=== PATIENT | female | born 1935 | race Caucasian/White ===

== ENCOUNTER 2021-03-27 12:09 | Inpatient (IN) | payer MEDICARE, SELFPAY ==
[2021-03-27] VITALS (58 sets, daily range): BP systolic 83–150; BP diastolic 50–87; PULSE 76–168; RESP 13–28; TEMP 36.6; O2SAT 91–100; BMI 16.1
--- NOTE | ~2021-03-27 | XR_ITS ---
EXAMINATION: XR chest 2V DATE: 03/27/2021 12:51 INDICATION: Cough and weakness TECHNIQUE: AP and lateral views of the chest are obtained. COMPARISON: 10/28/2016 FINDINGS: There are airspace opacities of the lung bases and left midlung zone. Small pleural effusio ns are present. There is no pneumothorax. The cardiomediastinal silhouette is normal. There is modera te thoracic spondylosis. There is a chronic L1 compression fracture with worsened loss of vertebral b cleo height. Surgical clips in the right upper quadrant are likely from prior cholecystectomy. There i s moderate osteoarthritis of the shoulders. IMPRESSION: 1. Airspace opacities of the lung bases and left midlung zone, consistent with atelectasis versus pne umonia. Reviewed, dictated and finalized at location B. IMPRESSION: 1. Airspace opacities of the lung bases and left midlung zone, consistent with atelectasis versus pneumonia.
--- NOTE | ~2021-03-27 | XR_ITS ---
EXAMINATION: XR chest 1V portable EXAM DATE: 04/03/2021 08:57 INDICATION: COVID. Pneumonia follow-up. TECHNIQUE: Portable AP frontal chest x-ray was obtained. Comparison is made to prior examination from 03/27/2020. FINDINGS: There is been progression in the right basilar pneumonia involving multiple segments. The l eft basilar multi segmental pneumonia appears not significantly changed. There are small pleural effu sions. Cardiomediastinal silhouette is normal. There is no pneumothorax suspected. There is no acute hemorrhage. There are cholecystectomy clips. IMPRESSION: 1. Bilateral lower lobe pneumonia, mild progression on the right. 2. Small pleural effusions. Reviewed, dictated and finalized at location B.
--- NOTE | 2021-03-27 12:21 | ECG_ITS ---
Measurements Intervals [place] Rate: 94 P: 72 DE: 131 QRS: -43 QRSD: 92 T: 89 QT: 320 QTc: 400 Interpretive Statements SINUS RHYTHM LEFT AXIS DEVIATION ANTEROSEPTAL INFARCT, AGE INDETERMINATE BORDERLINE ST-T WAVE ABNORMALITY- HIGH LATERAL LEADS BASELINE ARTIFACT- I, II, III, AVR, AVL, AVF, V3-V6 ABNORMAL ECG Electronically Signed On 03-27-2021 13:55:52 CDT by Issa Winkler D.O.
--- NOTE | 2021-03-27 12:42 | ED.WEAKNESS ---
HPI - Weakness General Chief complaint: Weakness Stated complaint: Sent By her PMD Time Seen by Provider: 03/27/21 12:18 History of Present Illness HPI Narrative: Patient is an 85-year-old who presents ER with weakness. Per family patient has been weak for the last week and has not been eating and drinking. She is not getting out of bed and they think she is developing a bedsore. Patient is alert and oriented x3. She denies any chest pain or chest pressure. She does report chronic cough. No fevers or chills or sweats. Was referred here by PCP. Related Data Home Medications Medication Instructions Recorded Confirmed aspirin 81 mg PO DAILY 03/27/21 atorvastatin 03/27/21 donepezil mg 03/27/21 ferrous sulfate [iron] 325 mg PO DAILY 03/27/21 losartan 03/27/21 potassium chloride meq PO 03/27/21 vitamins A,C,X-mzbf-[id number] 1 cap PO BID 03/27/21 [PreserVision AREDS] Allergies Allergy/AdvReac Type Severity Reaction Status Date / Time Sulfa (Sulfonamide Allergy Mild ITCHING Verified 07/26/17 10:23 Antibiotics) NKFA Allergy Unknown Uncoded 01/10/03 14:35 Review of Systems Review of Systems: All systems reviewed & are unremarkable except as noted in HPI and below Constitutional: Constitutional: Denies chills, Reports fatigue, Denies fever(s) and Reports weakness ENT: Denies nasal congestion and Denies sore throat Cardiovascular: Cardiovascular: Denies chest pain and Denies radiating jaw, neck or arm pain Respiratory: Respiratory: Reports cough, Denies dyspnea and Denies wheezing Gastrointestinal: Gastrointestinal: Denies abdominal pain, Denies nausea and Denies vomiting PMFSH Past Medical History Medical History (Updated 03/27/21 @ 16:59 by Henrique Watkins MD) Alzheimer's dementia Diverticulosis Hypertension Surgical History Surgical History (Updated 03/27/21 @ 16:59 by Henrique Watkins MD) History of appendectomy History of cholecystectomy Social History Social History (Updated 03/27/21 @ 16:59 by Henrique Watkins MD) Social History: Lives at home with her son. Exam Narrative: GENERAL: Frail and chronically ill-appearing, and in no acute distress. HEAD: Normocephalic, atraumatic. ENT: Mucous membranes moist. CHEST: Clear to auscultation. No respiratory distress. HEART: Regular rate and rhythm. Normal peripheral pulses. ABDOMEN: Soft, nontender, nondistended. EXTREMITIES: Normal range of motion. No edema. SKIN: Warm, dry, no rash. NEURO: Alert and oriented x2. PSYCH: Normal mood and affect. Course Course Emergency Course: Admit to the hospitalist service. After discussing admission patient went into atrial fibrillation with RVR on her own. Patient had already received D50/insulin/calcium/sodium bicarb. Patient then placed on diltiazem. Vital Signs Vital signs: Vital Signs Temperature 97.9 F 03/27/21 12:16 Pulse Rate 95 03/27/21 12:16 Respiratory Rate 20 03/27/21 12:16 Blood Pressure 150/63 H 03/27/21 12:16 Pulse Oximetry 93 03/27/21 12:16 Temperature 97.9 F 03/27/21 12:16 Pulse Rate 141 H 03/27/21 16:46 Respiratory Rate 19 03/27/21 16:46 Blood Pressure 90/58 L 03/27/21 16:46 Pulse Oximetry 99 03/27/21 16:16 MDM - Weakness Lab Data Result diagrams: 03/27/21 12:40 03/27/21 12:40 Labs: Lab Results 03/27/21 03/27/21 03/27/21 Range/Units 12:40 12:40 12:57 WBC 8.5 (4.5-10.0) K/mm3 RBC 3.90 L (4.2-5.4) M/mm3 Hgb 12.0 (12.0-15.0) g/dL Hct 38.9 (37.0-47.0) % MCV 99.7 (80-100) fl MCH 30.8 (26-34) pg MCHC 30.8 L (32-36) g/dl RDW 14.2 (11.5-14.5) % Plt Count 208 (150-375) k/mm3 MPV 9.8 (7.4-10.4) fl Immature Gran % (Auto) 0.9 H (0-0.5) % Neut % (Auto) 90.4 H (45.5-73.1) % Lymph % (Auto) 3.8 L (18.3-44.2) % [place] % (Auto) 4.7 (2.6-8.5) % Eos % (Auto) 0.0 (0-4.4) % Baso % (Auto) 0.2 (0.2-1.2) % Lymph # (Auto) 0.32 L
[2021-03-27 12:50] LABS: Basophils Percent Auto 0.2 % (0.2-1.2); Hematocrit 38.9 % (37.0-47.0); Immature Granulocyte Absolute 0.08 K/mm3 (0.00-0.031); Immature Granulocyte Percent A 0.9 % (0-0.5); Lymphocytes Absolute Auto 0.32 K/mm3 (0.9-3.2); Lymphocytes Percent Auto 3.8 % (18.3-44.2); Mean Corpuscular HGB Conc 30.8 g/dl (32-36); Mean Corpuscular Hemoglobin 30.8 pg (26-34); Mean Corpuscular Volume 99.7 fl (80-100); Mean Platelet Volume 9.8 fl (7.4-10.4); Monocytes Absolute Auto 0.4 K/mm3 (0.1-0.6); Monocytes Percent Auto 4.7 % (2.6-8.5); Neutrophils Absolute Auto 7.7 K/mm3 (1.3-6.7); Neutrophils Percent Auto 90.4 % (45.5-73.1); Platelet Count Result 208 k/mm3 (150-375); Red Cell Distribution Width 14.2 % (11.5-14.5); White Blood Count 8.5 K/mm3 (4.5-10.0)
[2021-03-27] MEDS: MORPHINE SULFATE (*CRX) 2 MG/ML INJ IV PUSH (13:00)
[2021-03-27] MEDS: SODIUM CHLORIDE 0.9% IV 1,000 ML 999 ML IV CONT ×2 (13:00→16:04)
--- NOTE | 2021-03-27 13:00 | PC.NURSE ---
O2 placed at 2l NC for sat of 91-92%
[2021-03-27 13:27] LABS: Add Urine Microscopic? YES; Amorphous Sediment Urine Few; Appearance Urine Cloudy (Clear); Bilirubin Urine Negative (Negative); Blood Urine Negative (Negative); Color Urine Yellow (Yellow); Glucose Urine UA Negative (Negative); Ketones Urine Trace mg/dL (Negative); Leukocyte Esterase Ur Negative LEU/UL (Negative); Mucus Urine Rare /lpf; Nitrate Urine Negative (Negative); Protein Urine 2+ mg/dL (Negative); RBC Urine 0-2 /hpf (0-2); Specific Grav Ur 1.014 (1.001-1.035); Squamous Epithelial Cell Urine Occasional /hpf (Few); Transitional Epi Cells Urine Rare /hpf (None Seen); Urobilinogen Urine Negative mg/dL (<2.0)
[2021-03-27 13:39] LABS: Alanine Aminotransferase 16 U/L (4-35); Albumin Level 3.4 g/dL (3.5-5.1); Alkaline Phosphatase 87 U/L (38-126); Anion Gap 12 mmol/L (8-16); Aspartate Amino Transferase 30 U/L (14-36); Bilirubin,Total 0.8 mg/dL (0.2-1.3); Blood Urea Nitrogen 34 mg/dL (7-17); Calcium 9.1 mg/dL (8.4-10.2); Carbon Dioxide 14 mmol/L (22-30); Chloride 108 mmol/L (98-107); Estimated Glomerular Filt Rate 31; Glucose 75 mg/dL (65-110); Potassium 6.3 mmol/L (3.4-5.0); Sodium 134 mmol/L (137-145)
[2021-03-27] MEDS: DEXTROSE 50% 25 GM/50 ML SYRINGE IV PUSH (14:50)
[2021-03-27] MEDS: CALCIUM GLUCONATE 1,000 MG/10 ML VIAL 1000 MG IV PUSH (14:50)
[2021-03-27] MEDS: SODIUM BICARBONATE 8.4% 50 MEQ/50 ML VIAL IV PUSH (14:51)
[2021-03-27] MEDS: INSULIN HUMAN REGULAR (*BKC) 100 UNITS/ML 10 UNITS IV PUSH (14:51)
--- NOTE | 2021-03-27 15:10 | PM.IMHP ---
H&P: HPI History of Present Illness Date/Time: 03/27/21 15:10 Chief Complaint: Weakness. Narrative: This is a pleasant 85-year-old female with mild dementia, hypertension, chronic kidney disease, hyperlipidemia, and iron deficiency anemia who presented to the emergency department earlier today via private vehicle from home for evaluation of weakness. She has not been feeling well for about a week or so with generalized weakness and decreased appetite. She also reports occasional, mild shortness of breath but she goes on to say that that is not unusual for her. She lives at home with 1 of her sons who had COVID a couple of weeks ago although the patient has been tested for the same and has continued to be negative. Labs done today showed hyperkalemia and elevated creatinine from baseline. Additionally the patient flipped into atrial fibrillation with rapid ventricular response while in the emergency department though she has no symptoms of such, specifically denying feelings of racing heart and palpitations. She has no known history of atrial fibrillation. She denies fever, chills, sweats, sinus congestion, rhinorrhea, otalgia, odynophagia, chest pain, pleuritic pain, cough, vomiting, diarrhea, and dysuria. Review of Systems Review of Systems: Twelve systems were reviewed. Reports occasional dysphagia but she denies concerns for aspiration. No syncope or near syncope. She denies falls. Except as documented, all other systems were reviewed and are negative. [facility] Past Medical History Medical History (Updated 03/27/21 @ 22:12 by Radha Ruiz PA-C) Alzheimer's dementia Chronic kidney disease, stage 3 Baseline creatinine appears to be around 1.0. Colon polyps Diverticulosis Hypertension Iron deficiency anemia Lumbar compression fracture Surgical History Surgical History (Updated 03/27/21 @ 22:07 by Radha Ruiz PA-C) History of appendectomy History of cataract extraction History of cholecystectomy History of tubal ligation Family History Family History (Updated 03/27/21 @ 22:09 by Radha Ruiz PA-C) Other Hypertension Social History Social History (Updated 03/27/21 @ 22:09 by Radha Ruiz PA-C) Social History: Surrogate decision maker: Antonio Abdalla, krysta. Code status: Full code. Smoking status: Former smoker Alcohol intake: never Substance use: never Additional living arrangements comments: The patient lives with her son Antonio in [place]. Additional occupation/education comments: Retired. Meds Home Medications and Allergies Home Medications Medication Instructions Recorded Confirmed Type aspirin 81 mg PO DAILY 03/27/21 03/27/21 History atorvastatin 10 mg PO DAILY 03/27/21 03/27/21 History donepezil 5 mg PO DAILY 03/27/21 03/27/21 History ferrous sulfate [iron] 325 mg PO DAILY 03/27/21 03/27/21 History losartan 50 mg PO DAILY 03/27/21 03/27/21 History potassium chloride 20 meq PO DAILY 03/27/21 03/27/21 History vitamins A,C,L-qczj-wcprev 1 cap PO DAILY 03/27/21 03/27/21 History [PreserVision AREDS] Allergies Allergy/AdvReac Type Severity Reaction Status Date / Time Sulfa (Sulfonamide Allergy Mild ITCHING Verified 07/26/17 10:23 Antibiotics) NKFA Allergy Unknown Uncoded 01/10/03 14:35 Vital Signs Vital Signs - 24 hr 03/27/21 12:16 03/27/21 12:59 03/27/21 13:01 Temperature 97.9 F Pulse Rate 95 88 Respiratory Rate 20 Blood Pressure 150/63 H Pulse Oximetry 93 97 03/27/21 13:27 03/27/21 13:30 03/27/21 13:45 Temperature Pulse Rate 86 84 86 Respiratory Rate 16 15 13 Blood Pressure Pulse Oximetry 97 98 97 03/27/21 13:46 03/27/21 13:47 03/27/21 14:00 Temperature Pulse Rate 85 84 84 Respiratory Rate 17 14 16 Blood Pressure 113/52 L Pulse Oximetry 97 97 96 03/27/21 14:01 03/27/21 14:15 03/27/21 14:16 Temperature Pulse Rate 83 86 85 Respiratory Rate 16 22 H 18 Blood Pressure 117/54 L 116/53 L Pu
--- NOTE | 2021-03-27 15:10 | ECG_ITS ---
Measurements Intervals [place] Rate: 131 P: [place]: 0 QRS: -41 QRSD: 101 T: 115 QT: 333 QTc: 492 Interpretive Statements ATRIAL FIBRILLATION WITH RAPID VENTRICULAR RESPONSE LEFT AXIS DEVIATION CANNOT RULE OUT SEPTAL INFARCT, AGE INDETERMINATE ST-T WAVE ABNORMALITY IN ANTEROLAT/HIGH LAT LEADS- CONSIDER ISCHEMIA BASELINE ARTIFACT- II, III, AVR, AVF, V3-V6 ABNORMAL ECG Electronically Signed On 03-27-2021 15:24:19 CDT by Issa Winkler D.O.
[2021-03-27] MEDS: dilTIAZem HCl INJ 25 MG/5 ML VIAL 10 MG IV PUSH (15:16)
[2021-03-27 16:23] LABS: Glucose Point of Care 184 mg/dl (65-105)
[2021-03-27 17:49] LABS: Anion Gap 3 mmol/L (8-16); Blood Urea Nitrogen 30 mg/dL (7-17); CRP 6.4 mg/dL (<1.0); Calcium 7.9 mg/dL (8.4-10.2); Carbon Dioxide 20 mmol/L (22-30); Chloride 111 mmol/L (98-107); Creatine Kinase 21 U/L (30-135); Estimated Glomerular Filt Rate 36; Glucose 137 mg/dL (65-110); Magnesium 1.7 mg/dL (1.6-2.3); Sodium 134 mmol/L (137-145)
[2021-03-27 18:01] LABS: Troponin I 0.072 ng/mL (0.000-0.034)
--- NOTE | 2021-03-27 19:34 | PC.NURSE ---
Assumed care of pt at this time. Pt alert and upright on stretcher at this time. Pt c/o right side pain which she states hurts all the time . Pt 98% on 2L NC. Updated on POC.
--- NOTE | 2021-03-27 20:26 | PC.NURSE ---
Attempted to call report at this time. Was informed that receiving nurse was in room with pt and will call back when available.
--- NOTE | 2021-03-27 21:19 | PC.NURSE ---
Report received by DAWSON Howard at 204. All questions answered and plan of care reviewed. Patient to be transferred to IMU room 203.
--- NOTE | 2021-03-27 21:34 | ADMGEN ---
This patient, Jigar [place], was admitted to IMU Room 203-01 at 1900. Patient/family oriented to hospital policies and general routines including ID bracelet, bed and alarms, visiting hours, pain management, procedures, bathroom and other care routines, personal items, smoking policy, room service/diet, and visiting hours. Information on how to activate the Rapid Response Team has been discussed. Patient/Family are encouraged to report perceived risks to care and to ask questions if they do not understand what they are told or what they should do.
[2021-03-27] MEDS: SODIUM CHLORIDE 0.9% IV 1,000 ML 50 ML IV CONT (23:42)
[2021-03-28] VITALS (12 sets, daily range): BP systolic 107–129; BP diastolic 36–62; PULSE 60–117; RESP 12–22; TEMP 36.3–37.1; O2SAT 90–98; BMI 16.1
[2021-03-28 05:25] LABS: Hematocrit 29.2 % (37.0-47.0); Hemoglobin 9.4 g/dL (12.0-15.0); Mean Corpuscular HGB Conc 32.2 g/dl (32-36); Mean Corpuscular Hemoglobin 31.3 pg (26-34); Mean Corpuscular Volume 97.3 fl (80-100); Platelet Count Result 207 k/mm3 (150-375); Red Cell Distribution Width 14.3 % (11.5-14.5); White Blood Count 8.1 K/mm3 (4.5-10.0)
[2021-03-28 05:38] LABS: Alanine Aminotransferase 12 U/L (4-35); Albumin Level 2.5 g/dL (3.5-5.1); Alkaline Phosphatase 65 U/L (38-126); Anion Gap 6 mmol/L (8-16); Aspartate Amino Transferase 23 U/L (14-36); Bilirubin,Total 0.5 mg/dL (0.2-1.3); Blood Urea Nitrogen 27 mg/dL (7-17); Calcium 8.3 mg/dL (8.4-10.2); Carbon Dioxide 17 mmol/L (22-30); Chloride 113 mmol/L (98-107); Creatine Kinase < 20 U/L (30-135); Estimated CRCL calculation 19 ml/min; Estimated Glomerular Filt Rate 39; Glucose 87 mg/dL (65-110); Magnesium 1.7 mg/dL (1.6-2.3); Potassium 5.4 mmol/L (3.4-5.0); Sodium 136 mmol/L (137-145)
[2021-03-28 05:52] LABS: Troponin I 0.288 ng/mL (0.000-0.034)
--- NOTE | 2021-03-28 06:29 | ECG_ITS ---
Measurements Intervals [place] Rate: 37 P: SD: 0 QRS: -40 QRSD: 80 T: 27 QT: 439 QTc: 348 Interpretive Statements SINUS AND ECTOPIC ATRIAL BRADYCARDIA LEFT AXIS DEVIATION CANNOT RULE OUT SEPTAL INFARCT, AGE INDETERMINATE ABNORMAL ECG Electronically Signed On 03-28-2021 8:25:00 CDT by Issa Winkler D.O.
[2021-03-28 07:46] LABS: Hemoglobin A1C 5.3 % (<5.7)
[2021-03-28] MEDS: OPTI-GEN TAB 1 TABLET PO (08:27)
[2021-03-28] MEDS: FERROUS SULFATE 324 MG TABLET PO (08:27)
[2021-03-28] MEDS: DONEPEZIL HCL 5 MG TABLET PO (08:27)
[2021-03-28] MEDS: ASPIRIN 81 MG CHEWABLE TABLET PO (08:27)
[2021-03-28] MEDS: ENOXAPARIN 40 MG/0.4 ML SYRINGE SUB-Q (08:27)
[2021-03-28 08:44] LABS: Glucose Point of Care 77 mg/dl (65-105)
--- NOTE | 2021-03-28 08:56 | PCSTNOTE ---
A Modified Barium Swallow study was ordered for this patient however due to being COVID pending, she was not brought to Radiology for assessment. A Bedside Swallow Evaluation was then completed to assess diet consistency and to determine if she would benefit from dietary modifications and/or additional Speech Therapy. Results suggest patient would benefit from Soft and Bite Sized diet with Mildly Thick Liquids to facilitate the prevention of aspiration, shakes and Magic Cup to increase caloric intake while offering pleasurable foods. No further ST is indicated at this time however a Modified Barium Swallow is recommended as soon as patient is able.
--- NOTE | 2021-03-28 09:18 | PM.IMPN ---
Progress Note: A&P Assessment and Plan (1) Acute kidney injury superimposed on chronic kidney disease: Code(s): N17.9 - Acute kidney failure, unspecified; N18.9 - Chronic kidney disease, unspecified Status: Acute Assessment and Plan: Suspect prerenal component in the setting of poor oral intake recently in addition to an ATN component as well related to that, there is evidence of granular casts on urinalysis. Creatinine improving with hydration. Baseline creatinine 1.3, admission creatinine 1.6, current creatinine 1.3. Renal diet with low potassium when she eats (2) Dehydration: Code(s): E86.0 - Dehydration Status: Acute Assessment and Plan: Feels better with IV hydration. Continue to monitor. (3) Hyperkalemia: Code(s): E87.5 - Hyperkalemia Status: Acute Assessment and Plan: In the setting of acute kidney injury while taking potassium and losartan. Improving. (4) Atrial fibrillation with rapid ventricular response: Code(s): I48.91 - Unspecified atrial fibrillation Status: Acute Assessment and Plan: This seems to be of new onset. Telemetry Currently in sinus rhythm in 60s, was given diltiazem one time dose 03/27, converted to sinus, monitor Possibly in the setting of hyperkalemia Echocardiogram ordered TSH normal CHADsVAsc is 4, initiate anticoagulation with Eliquis Given rising troponin and new onset afib, will consult cardiology for evaluation (5) Pneumonia: Code(s): J18.9 - Pneumonia, unspecified organism Status: Acute Assessment and Plan: Chest x-ray shows some infiltrates in the left lower lobe consistent with atelectasis versus pneumonia Has been initiated on azithromycin and ceftriaxone, pending sputum culture. (6) Person under investigation for COVID-19: Code(s): Z20.822 - Contact with and (suspected) exposure to COVID-19 Status: Acute Assessment and Plan: COVID testing currently pending (7) Hypertension: Code(s): I10 - Essential (primary) hypertension Status: Acute Assessment and Plan: Hold home losartan given hyperkalemia and soft blood pressure. (8) Iron deficiency anemia: Code(s): D50.9 - Iron deficiency anemia, unspecified Status: Acute Assessment and Plan: Continue home ferrous sulfate supplement (9) Alzheimer's dementia: Code(s): G30.9 - Alzheimer's disease, unspecified; F02.80 - Dementia in other diseases classified elsewhere without behavioral disturbance Status: Acute Assessment and Plan: Continue home donepezil (10) Hyperlipidemia: Code(s): E78.5 - Hyperlipidemia, unspecified Status: Acute Assessment and Plan: Continue home atorvastatin Subjective Date/time seen: 03/28/21 09:18 No major events last night. Heart rate is regular in the 60s when I visited with her. Hemodynamically stable. She feels her breathing is better. She is on 2 L of oxygen by nasal cannula. Review of Systems Review of Systems: All systems reviewed & are unremarkable except as noted in HPI and below Exam Narrative: Gen: Alert, NAD Abd: Soft, NT, ND Heart: RRR Lungs: CTAB Ext: No lower extremity edema Objective Data Vital Signs Vital Signs: Vital Signs - 24 hr 03/27/21 12:16 03/27/21 12:59 03/27/21 13:01 Temperature 97.9 F Pulse Rate 95 88 Respiratory Rate 20 Blood Pressure 150/63 H Pulse Oximetry 93 97 03/27/21 13:27 03/27/21 13:30 03/27/21 13:45 Temperature Pulse Rate 86 84 86 Respiratory Rate 16 15 13 Blood Pressure Pulse Oximetry 97 98 97 03/27/21 13:46 03/27/21 13:47 03/27/21 14:00 Temperature Pulse Rate 85 84 84 Respiratory Rate 17 14 16 Blood Pressure 113/52 L Pulse Oximetry 97 97 96 03/27/21 14:01 03/27/21 14:15 03/27/21 14:16 Temperature Pulse Rate 83 86 85 Respiratory Rate 16 22 H 18 Blood Pressure 117/54 L 116/53 L Pulse Oximetry 94 94 96 03/27/21
[2021-03-28] MEDS: INSULIN HUMAN REGULAR (*BKC) 100 UNITS/ML 10 UNITS IV PUSH (13:05)
[2021-03-28] MEDS: DEXTROSE 50% 25 GM/50 ML SYRINGE IV PUSH (13:06)
[2021-03-28] MEDS: SODIUM BICARBONATE 8.4% 150 MEQ in WATER, STERILE FOR INJECTION 950 ML 50 MEQ IV CONT (13:06)
[2021-03-28] MEDS: SODIUM POLYSTYRENE SULFONONATE 15 GM/60 ML BTL 30 GM PO (13:06)
--- NOTE | 2021-03-28 16:20 | PM.CNCAR ---
Assessment and Plan Assessment and plan (1) Elevated troponin: Code(s): R77.8 - Other specified abnormalities of plasma proteins <NOEMI Lopez - Last Filed: 03/28/21 17:19> Status: Acute <NOEMI Lopez - Last Filed: 03/28/21 17:19> Assessment and Plan: Two elevated troponin levels 0.072, 0.288. Troponin levels were drawn for unclear reasons. Per the medical record it does not appear that she has any cardiac history whatsoever. No evidence of ischemia on her EKG. Difficult to assess for any anginal symptoms due to her mental status. When asked if she is having any chest pain she simply replies, I don't know. She does have risk factors of age and hyperlipidemia. Will obtain echo to assess for LV systolic dysfunction, wall motion abnormalities. Further recommendations to follow when echo has been reviewed. <NOEMI Lopez - Last Filed: 03/28/21 17:19> (2) Hyperkalemia: Code(s): E87.5 - Hyperkalemia <NOEMI Lopez - Last Filed: 03/28/21 17:19> Status: Acute <NOEMI Lopez - Last Filed: 03/28/21 17:19> Assessment and Plan: 6.3 at presentation is now down to 5.4 with administration of insulin, Kayexalate. Management per primary team <NOEMI Lopez - Last Filed: 03/28/21 17:19> (3) Hypertension: Code(s): I10 - Essential (primary) hypertension <NOEMI Lopez - Last Filed: 03/28/21 17:19> Status: Acute <NOEMI Lopez - Last Filed: 03/28/21 17:19> Assessment and Plan: BP at goal currently. <NOEMI Lopez - Last Filed: 03/28/21 17:19> (4) Atrial fibrillation with rapid ventricular response: Code(s): I48.91 - Unspecified atrial fibrillation <NOEMI Lopez - Last Filed: 03/28/21 17:19> Status: Acute <NOEMI Lopez - Last Filed: 03/28/21 17:19> Assessment and Plan: New onset of atrial fibrillation noticed on telemetry while patient was in the emergency department. She was given 1 dose of IV diltiazem and converted to sinus rhythm. She remains in sinus rhythm with a rate in the 70s. She was placed on apixaban as she has a CHADs2 Vasc score of 3 (age, female gender, hypertension). Will need to assess fall risk to determine appropriateness of systemic anticoagulation. - Stop ASA while on OAC - Echo pending - Will start metoprolol for rate control if recurrence of A fib <NOEMI Lopez - Last Filed: 03/28/21 17:19> Additional Plan Chart reviewed, patient seen. Agree with MANGANESE WHEELER Wendy Garcia's assessment and plan. Elderly female admitted with weakness and decreased appetite. Denies any chest pain, palpitations, dizziness. Had transient AFib RVR, aymptomatic, and is back to sinus rhythm. Had sinus bradycardia rate 37 by EKG, which I personally reviewed, while on diltiazem, heart rate currently in the 70s. Thus she may have mild tachy-linda syndrome. Elevated troponins noted without ischemic EKG changes or chest pain, probably related to the AFib RVR. She may are may not have underlying coronary disease but is asymptomatic. Agree w/ plans for low-dose metoprolol, follow on telemetry for any significant bradycardia. Echo pending. Anticoagulated with Eliquis at low dose, will re-evaluate suitability for this anticoagulation depending on her balance, gait and fall risk. <Olga Rangel MD - Last Filed: 03/28/21 17:49> History of Present Illness History of Present Illness Consult date/time: 03/28/21 16:20 This is a patient who I am seeing at the request of the hospitalist for atrial fibrillation and elevated troponin. This is a 85-year-old female with a medical history of dementia, hypertension, chronic kidney disease, hyperlipidemia, and iron deficiency anemia. She presented to the emergency department yesterday with a one week complaint of generalized weakness and decreased appetite. While st
[2021-03-28 20:43] LABS: SARS-CoV-2 RNA PCR Positive
[2021-03-29] VITALS (16 sets, daily range): BP systolic 121–143; BP diastolic 48–88; PULSE 57–135; RESP 18–22; TEMP 36.1–36.5; O2SAT 90–97
[2021-03-29] MEDS: METOPROLOL TARTRATE 12.5 MG TABLET PO ×3 (00:25→22:31)
[2021-03-29] MEDS: APIXABAN 2.5 MG TABLET PO ×2 (00:26→09:26)
[2021-03-29 05:12] LABS: Basophils Percent Auto 0.1 % (0.2-1.2); Eosinophils Percent Auto 0.1 % (0-4.4); Hematocrit 28.9 % (37.0-47.0); Hemoglobin 9.1 g/dL (12.0-15.0); Immature Granulocyte Absolute 0.09 K/mm3 (0.00-0.031); Immature Granulocyte Percent A 1.3 % (0-0.5); Lymphocytes Absolute Auto 0.27 K/mm3 (0.9-3.2); Lymphocytes Percent Auto 3.9 % (18.3-44.2); Mean Corpuscular HGB Conc 31.5 g/dl (32-36); Mean Corpuscular Hemoglobin 30.5 pg (26-34); Mean Platelet Volume 10.1 fl (7.4-10.4); Monocytes Absolute Auto 0.4 K/mm3 (0.1-0.6); Monocytes Percent Auto 5.6 % (2.6-8.5); Neutrophils Absolute Auto 6.2 K/mm3 (1.3-6.7); Platelet Count Result 208 k/mm3 (150-375); Red Blood Count 2.98 M/mm3 (4.2-5.4); Red Cell Distribution Width 14.1 % (11.5-14.5)
[2021-03-29 05:27] LABS: Anion Gap 2 mmol/L (8-16); Blood Urea Nitrogen 19 mg/dL (7-17); Calcium 8.1 mg/dL (8.4-10.2); Carbon Dioxide 27 mmol/L (22-30); Chloride 109 mmol/L (98-107); Estimated CRCL calculation 22 ml/min; Estimated Glomerular Filt Rate 47; Glucose 90 mg/dL (65-110); Potassium 3.2 mmol/L (3.4-5.0); Sodium 138 mmol/L (137-145)
[2021-03-29] MEDS: SODIUM BICARBONATE 8.4% 150 MEQ in WATER, STERILE FOR INJECTION 950 ML 50 MEQ IV CONT (05:54)
[2021-03-29] MEDS: FERROUS SULFATE 324 MG TABLET PO (09:26)
[2021-03-29] MEDS: OPTI-GEN TAB 1 TABLET PO (09:26)
[2021-03-29] MEDS: DONEPEZIL HCL 5 MG TABLET PO (09:26)
--- NOTE | 2021-03-29 11:24 | PM.IMPN ---
Progress Note: A&P Assessment and Plan (1) Acute kidney injury superimposed on chronic kidney disease: Code(s): N17.9 - Acute kidney failure, unspecified; N18.9 - Chronic kidney disease, unspecified Status: Acute Assessment and Plan: Suspect prerenal component in the setting of poor oral intake recently in addition to an ATN component as well related to that, there is evidence of granular casts on urinalysis. Creatinine improving with hydration. Baseline creatinine 1.1-1.3, admission creatinine 1.6, now back to baseline (2) Pneumonia: Code(s): J18.9 - Pneumonia, unspecified organism Status: Acute Assessment and Plan: Chest x-ray shows some infiltrates in the left lower lobe consistent with atelectasis versus pneumonia Has been initiated on azithromycin and ceftriaxone 03/27- (3) Pneumonia due to COVID-19 virus: Code(s): U07.1 - COVID-19; J12.82 - Pneumonia due to coronavirus disease 2019 Status: Acute Assessment and Plan: Her COVID testing came back positive Initiate dexamethasone and remdesivir 03/29 COVID isolation precautions Supportive measures (4) Dehydration: Code(s): E86.0 - Dehydration Status: Acute Assessment and Plan: Feels better with IV hydration. Discontinue IVF and encourage oral intake. Continue to monitor. (5) Atrial fibrillation with rapid ventricular response: Code(s): I48.91 - Unspecified atrial fibrillation Status: Acute Assessment and Plan: This seems to be of new onset. Telemetry Currently in sinus rhythm in 60s, was given diltiazem one time dose 03/27, converted to sinus, monitor Possibly in the setting of hyperkalemia Echocardiogram ordered TSH normal CHADsVAsc is 4 (2 for age above 75, 1 for hypertension, and 1 for female), initiated anticoagulation with Eliquis, unfortunately not covered by insurance and will have to be on Coumadin, at this point given frailty and fall risk, will hold anticoagulation. Appreciate cardiology's input. Given rising troponin and new onset afib, consult cardiology for evaluation, appreciate help (6) Hyperkalemia: Code(s): E87.5 - Hyperkalemia Status: Acute Assessment and Plan: In the setting of acute kidney injury while taking potassium and losartan. Now resolved. (7) Hypertension: Code(s): I10 - Essential (primary) hypertension Status: Acute Assessment and Plan: Hold home losartan given hyperkalemia and soft blood pressure. (8) Iron deficiency anemia: Code(s): D50.9 - Iron deficiency anemia, unspecified Status: Acute Assessment and Plan: Continue home ferrous sulfate supplement (9) Alzheimer's dementia: Code(s): G30.9 - Alzheimer's disease, unspecified; F02.80 - Dementia in other diseases classified elsewhere without behavioral disturbance Status: Acute Assessment and Plan: Continue home donepezil (10) Hyperlipidemia: Code(s): E78.5 - Hyperlipidemia, unspecified Status: Acute Assessment and Plan: Continue home atorvastatin (11) Dysphagia: Code(s): R13.10 - Dysphagia, unspecified Status: Acute Assessment and Plan: Has been evaluated by speech therapy. Soft and Bite Sized diet with Mildly Thick Liquids to facilitate the prevention of aspiration, shakes and Magic Cup to increase caloric intake while offering pleasurable foods. Modified Barium Swallow is recommended as soon as patient is able (deferred due to COVID). (12) Anemia: Code(s): D64.9 - Anemia, unspecified Status: Acute Assessment and Plan: Normocytic. Hemoglobin 12 admission, unknown baseline. Dropped to 9.1 today, likely was initially concentrated, and this is dilutional effect. Will check anemia indices. Subjective Date/time seen: 03/29/21 11:24 No major issues last night. She is on 2 L of oxygen by nasal cannula. O2 sat currently 92%. She was hemodynamically stable
[2021-03-29] MEDS: POTASSIUM CHLORIDE 20 MEQ TABLET PO (13:54)
--- NOTE | 2021-03-29 14:02 | PM.PNCARD ---
Progress Note: A&P Additional Plan 85-year-old woman with coronavirus pneumonia also has asymptomatic paroxysmal atrial fibrillation. Agree with hospitalist she is a poor candidate for systemic anticoagulation. She is going in and out of atrial fib spontaneously some going to start an oral amiodarone loading dose at 400 mg q.12 hours in hopes of stabilizing this and maintaining sinus rhythm. If she does convert to sinus that I would reduce this to 200 mg daily for now. Prognosis in my opinion is not good given her Coronavirus advanced age and frailty. Mo Zarco MD [facility] Subjective Date/time seen: Date of service: 03/29/21 14:02 Interval history: Follow-up visit in this 85-year-old woman with: Asymptomatic paroxysmal atrial fibrillation. Placed yesterday on beta-myla therapy. Called by nursing staff this afternoon that there is a recurrence of AFib with RVR with which she is essentially asymptomatic and hemodynamically stable. Patient was admitted yesterday with complaints of weakness in general. Found to have evidence of coronavirus. Does have pneumonia on chest x-ray. Exam Const: General: no acute distress Other: Debilitated elderly woman HENMT: Mouth: Yes dry mucous membranes Eyes: Sclera: sclerae normal Pupils: Equal, round and reactive pupils present Neck: Neck: supple and no JVD Resp: Effort & Inspection: normal respiratory effort Other: Diminished breath sounds bilaterally Cardio: Rhythm: abnormal rhythm irregularly irregular GI: GI Palp: Yes Soft to palpation Auscultation: normal bowel sounds Skin: General skin exam: normal color Neuro: Other: Patient with significant dementia Extrem: General: normal to inspection Objective Data Vital Signs Vital Signs: Vital Signs - 24 hr 03/28/21 16:00 03/28/21 18:00 03/28/21 20:00 Temperature 37.1 C 36.4 C Pulse Rate 68 83 80 Respiratory Rate 22 H 20 Blood Pressure 122/45 L 124/62 Pulse Oximetry 94 90 03/28/21 22:00 03/29/21 00:00 03/29/21 00:25 Temperature 36.2 C L Pulse Rate 74 85 85 Respiratory Rate 20 Blood Pressure 132/74 Pulse Oximetry 97 03/29/21 00:41 03/29/21 02:00 03/29/21 04:00 Temperature 36.1 C L Pulse Rate 103 H 85 Respiratory Rate 18 Blood Pressure 129/48 L 135/88 Pulse Oximetry 97 03/29/21 06:00 03/29/21 06:39 03/29/21 08:00 Temperature 36.5 C Pulse Rate 78 81 Respiratory Rate 20 Blood Pressure 130/50 L 134/51 L Pulse Oximetry 92 03/29/21 10:00 03/29/21 12:00 Temperature Pulse Rate 88 Respiratory Rate Blood Pressure Pulse Oximetry 92 Intake/Output Intake/Output: Intake & Output 03/26/21 03/27/21 03/28/21 03/29/21 23:59 23:59 23:59 23:59 Intake Total 2305 1200 1100 Output Total 200 1000 Balance 2105 200 1100 Meds/Results Medications: Active Medications Generic Name Dose Route Start Last Admin Trade Name Freq PRN Reason Stop Dose Admin Acetaminophen 650 mg 03/27/21 14:33 Acetaminophen 325 Mg Tablet PO Q4H PRN Mild Pain (1-3) or Fever Hydrocodone Bitart/Acetaminophen 1 tab 03/27/21 14:33 Hydrocodone/Acetaminophen (*Crx) 5-325 Mg Tablet PO Q4H PRN Pain Rated 4-6 Amiodarone HCl 400 mg 03/29/21 14:00 Amiodarone Hcl 200 Mg Tablet PO Q12H TELLO Dexamethasone Sodium Phosphate 6 mg 03/29/21 09:00 03/29/21 13:54 Dexamethasone Sod Phos Inj 10 Mg/Ml 1 Ml Vial IV PUSH 04/07/21 09:01 6 mg DAILY TELLO Administration Donepezil HCl 5 mg 03/28/21 09:00 03/29/21 09:26 Donepezil Hcl 5 Mg Tablet PO 5 mg DAILY TELLO Administration Ferrous Sulfate 324 mg 03/28/21 08:00 03/29/21 09:26 Ferrous Sulfate 324 Mg Tablet PO 324 mg DAILY@0800 TELLO Administration Ceftriaxone Sodium/Dextrose 1 gm in 50 mls @ 100 mls/hr 03/28/21 16:00 03/28/21 18:03 Rocephin 1 Gm/D5w 50 Ml IVPB 100 mls/hr Q24H TELLO Administration Sodium Bicarbonate 150 meq/ 1,100 mls @ 50 mls/hr 03/28/21 09:45 09
[2021-03-29] MEDS: AMIODARONE HCL 200 MG TABLET 400 MG PO (14:36)
[2021-03-29 14:45] LABS: INR 1.8; Prothrombin Time 20.1 Seconds (11.1-14.7)
[2021-03-29 14:49] LABS: Alanine Aminotransferase 13 U/L (4-35); Estimated CRCL calculation 24 ml/min; Estimated Glomerular Filt Rate 53
[2021-03-29 17:10] LABS: Immature Reticulocyte Fraction 22.8 % (3.0-15.9); Reticulocyte Hemoglobin Conten 31.9 pg (28.2-35.7); Reticulocyte Percent 1.64 % (0.7-4.3); Reticulocytes Absolute 0.05 B/L (32.2-175.7)
[2021-03-29 17:36] LABS: Iron 40 ug/dL (37-170)
[2021-03-29 17:43] LABS: Lactate Dehydrogenase 446 U/L (313-618)
[2021-03-29 17:46] LABS: Percent Iron Saturation 20 % (20-50)
[2021-03-29 18:51] LABS: Folic Acid 7.4 ng/mL (2.76->20)
[2021-03-29] MEDS: REMDESIVIR 200 MG/NS 250 ML 200 MG/250 ML BAG 250 MG IVPB (22:31)
[2021-03-30] VITALS (21 sets, daily range): BP systolic 109–130; BP diastolic 45–58; PULSE 69–93; RESP 17–20; TEMP 36.1–36.7; O2SAT 93–97
--- NOTE | 2021-03-30 | ECHO_ITS ---
Patient Info Name: Jigar Raymond Age: 85 years : 1935 Gender: Female Ht: 63 in Wt: 90 lbs BSA: 1.33 m2 HR: 87 bpm BP: 109 / 45 mmHg Heart Rhythm: Sinus Rhythm Technical Quality: Good Exam Date: 03/30/2021 2:09 PM Exam Location: [facility] Pulmonary Exam Room: 203 Patient Status: Inpatient Admit Date: 03/28/2021 Staff Ordering Physician: Daniel Kaiser MD Heating Unit Mechanic: Kate Loredo RDCS Attending Provider: Daniel Kaiser MD Referring Physician: Job FIERRO; Exam Type: CA echo doppler color flow Study Info Indications - COVID AFIB ELEVATED TROPONINS HTN Complete two-dimensional, color flow and Doppler transthoracic echocardiogram is performed. Summary 1. Complete two-dimensional, color flow and Doppler transthoracic echocardiogram is performed. 2. Left ventricular chamber dimension is normal. 3. Left ventricular systolic function is normal, estimated at 65-70%. 4. There is no increased left ventricular wall thickness. 5. The left ventricular diastolic function is grade I diastolic dysfunction. 6. There is trace tricuspid valve regurgitation. 7. No pulmonary hypertension, estimated pulmonary arterial systolic pressure is 33 mmHg. 8. There is trace mitral valve regurgitation. 9. There is no aortic valve stenosis. Left Ventricle Left ventricular chamber dimension is normal. Left ventricular systolic function is normal, estimated at 65-70%. There is no increased left ventricular wall thickness. The left ventricular diastolic function is grade I diastolic dysfunction. Right Ventricle Right ventricular chamber dimension is normal. Right ventricular systolic function is normal. Left Atria Left atrial chamber dimension is normal. Right Atria Right atrial chamber dimension is normal. Aortic Valve The aortic valve is not well visualized. There is no aortic valve stenosis. There is no aortic valve regurgitation. Pulmonic Valve The pulmonic valve is not well visualized. There is trace pulmonic regurgitation. Mitral Valve The mitral valve has thickened leaflets. There is trace mitral valve regurgitation. The mitral valve annulus is mildly calcified. Tricuspid Valve The tricuspid valve leaflets are normal. There is trace tricuspid valve regurgitation. No pulmonary hypertension, estimated pulmonary arterial systolic pressure is 33 mmHg. Pericardium/Pleural The pericardium appears normal. There is no pericardial effusion. Inferior Vena Cava Normal inferior vena cava with >50% collapse upon inspiration consistent with normal right atrial pressure, 5 mmHg. Aorta The aortic root size at the sinus of Valsalva is normal. There is mild aortic atherosclerosis. Left Ventricular Outflow Tract Name Value Normal LVOT 2D LVOT Diameter 2.0 cm LVOT Doppler LVOT Peak Gradient 5 mmHg LVOT Mean Gradient 2 mmHg LVOT VTI 18 cm LVOT VTI/AV VTI Ratio 0.8 LVOT Stroke Volume 57 ml LVOT CO
[2021-03-30] MEDS: AMIODARONE HCL 200 MG TABLET 400 MG PO ×2 (03:40→17:32)
[2021-03-30 05:47] LABS: Hematocrit 28.9 % (37.0-47.0); Hemoglobin 9.2 g/dL (12.0-15.0); Mean Corpuscular HGB Conc 31.8 g/dl (32-36); Mean Corpuscular Hemoglobin 30.7 pg (26-34); Mean Corpuscular Volume 96.3 fl (80-100); Mean Platelet Volume 9.9 fl (7.4-10.4); Platelet Count Result 208 k/mm3 (150-375); Red Cell Distribution Width 13.8 % (11.5-14.5); White Blood Count 6.3 K/mm3 (4.5-10.0)
[2021-03-30 06:00] LABS: INR 1.5; Prothrombin Time 17.6 Seconds (11.1-14.7)
[2021-03-30 06:01] LABS: Alanine Aminotransferase 12 U/L (4-35); Anion Gap 8 mmol/L (8-16); Blood Urea Nitrogen 17 mg/dL (7-17); Calcium 7.6 mg/dL (8.4-10.2); Carbon Dioxide 28 mmol/L (22-30); Chloride 105 mmol/L (98-107); Estimated CRCL calculation 22 ml/min; Estimated Glomerular Filt Rate 47; Glucose 152 mg/dL (65-110); Potassium 2.9 mmol/L (3.4-5.0); Sodium 141 mmol/L (137-145)
[2021-03-30] MEDS: METOPROLOL TARTRATE 12.5 MG TABLET PO ×2 (09:14→22:05)
[2021-03-30] MEDS: FERROUS SULFATE 324 MG TABLET PO (09:16)
[2021-03-30] MEDS: OPTI-GEN TAB 1 TABLET PO (09:18)
[2021-03-30] MEDS: DONEPEZIL HCL 5 MG TABLET PO (09:18)
--- NOTE | 2021-03-30 09:28 | PM.IMPN ---
Progress Note: A&P Assessment and Plan (1) Acute kidney injury superimposed on chronic kidney disease: Code(s): N17.9 - Acute kidney failure, unspecified; N18.9 - Chronic kidney disease, unspecified Status: Acute Assessment and Plan: Suspect prerenal component in the setting of poor oral intake recently in addition to an ATN component as well related to that, there is evidence of granular casts on urinalysis. Creatinine improving with hydration. Baseline creatinine 1.1-1.3, admission creatinine 1.6, now back to baseline (2) Pneumonia: Code(s): J18.9 - Pneumonia, unspecified organism Status: Acute Assessment and Plan: Chest x-ray shows some infiltrates in the left lower lobe consistent with atelectasis versus pneumonia Has been initiated on azithromycin and ceftriaxone 03/27 (3) Pneumonia due to COVID-19 virus: Code(s): U07.1 - COVID-19; J12.82 - Pneumonia due to coronavirus disease 2018 Status: Acute Assessment and Plan: Her COVID testing came back positive Initiate dexamethasone and remdesivir 03/29 COVID isolation precautions Supportive measures (4) Dehydration: Code(s): E86.0 - Dehydration Status: Acute Assessment and Plan: Feels better with IV hydration. Discontinue IVF and encourage oral intake. Continue to monitor. (5) Atrial fibrillation with rapid ventricular response: Code(s): I48.91 - Unspecified atrial fibrillation Status: Acute Assessment and Plan: This seems to be of new onset. Possibly in the setting of COVID/pneumonia. Telemetry Currently in sinus rhythm in 60s, has been paroxysmal, initiated on metoprolol. Possibly in the setting of hyperkalemia Echocardiogram ordered TSH normal CHADsVAsc is 4 (2 for age above 75, 1 for hypertension, and 1 for female), initiated anticoagulation with Eliquis, unfortunately not covered by insurance and will have to be on Coumadin, at this point given frailty and fall risk, will hold anticoagulation. Appreciate cardiology's input. I also discussed this with her son, with plan to rediscuss this issue in the outpatient setting when she is recovered from COVID. Given rising troponin and new onset afib, consulted cardiology for evaluation, appreciate help (6) Hyperkalemia: Code(s): E87.5 - Hyperkalemia Status: Acute Assessment and Plan: In the setting of acute kidney injury while taking potassium and losartan. Now resolved, potassium noted to be low today will replace. (7) Hypertension: Code(s): I10 - Essential (primary) hypertension Status: Acute Assessment and Plan: Hold home losartan given hyperkalemia and soft blood pressure. (8) Iron deficiency anemia: Code(s): D50.9 - Iron deficiency anemia, unspecified Status: Acute Assessment and Plan: Continue home ferrous sulfate supplement (9) Alzheimer's dementia: Code(s): G30.9 - Alzheimer's disease, unspecified; F02.80 - Dementia in other diseases classified elsewhere without behavioral disturbance Status: Acute Assessment and Plan: Continue home donepezil (10) Hyperlipidemia: Code(s): E78.5 - Hyperlipidemia, unspecified Status: Acute Assessment and Plan: Continue home atorvastatin (11) Dysphagia: Code(s): R13.10 - Dysphagia, unspecified Status: Acute Assessment and Plan: Has been evaluated by speech therapy. Soft and Bite Sized diet with Mildly Thick Liquids to facilitate the prevention of aspiration, shakes and Magic Cup to increase caloric intake while offering pleasurable foods. Modified Barium Swallow is recommended as soon as patient is able (deferred due to COVID). (12) Anemia: Code(s): D64.9 - Anemia, unspecified Status: Acute Assessment and Plan: Normocytic. Hemoglobin 12 admission, unknown baseline. Dropped to 9.1 yesterday, stabilized at 9.2 today. Anemia indices do not show clear iron de
[2021-03-30] MEDS: POTASSIUM CHLORIDE 20 MEQ TABLET.ER 40 MEQ PO ×2 (12:47→17:31)
[2021-03-30] MEDS: REMDESIVIR 100 MG/NS 250 ML 100 MG/250 ML BAG 250 MG IVPB (22:05)
[2021-03-31] VITALS (16 sets, daily range): BP systolic 128–146; BP diastolic 59–70; PULSE 66–82; RESP 16–24; TEMP 35.8–36.7; O2SAT 93–96
[2021-03-31] MEDS: AMIODARONE HCL 200 MG TABLET 400 MG PO ×2 (01:38→14:50)
[2021-03-31 06:26] LABS: Hematocrit 33.1 % (37.0-47.0); Hemoglobin 9.9 g/dL (12.0-15.0); Mean Corpuscular HGB Conc 29.9 g/dl (32-36); Mean Corpuscular Hemoglobin 30.9 pg (26-34); Mean Corpuscular Volume 103.4 fl (80-100); Mean Platelet Volume 10.6 fl (7.4-10.4); Platelet Count Result 230 k/mm3 (150-375); Red Cell Distribution Width 13.9 % (11.5-14.5); White Blood Count 12.3 K/mm3 (4.5-10.0)
[2021-03-31 06:35] LABS: Alanine Aminotransferase 13 U/L (4-35); Anion Gap 7 mmol/L (8-16); Blood Urea Nitrogen 29 mg/dL (7-17); Calcium 8.2 mg/dL (8.4-10.2); Carbon Dioxide 25 mmol/L (22-30); Chloride 110 mmol/L (98-107); Estimated CRCL calculation 22 ml/min; Estimated Glomerular Filt Rate 47; Glucose 104 mg/dL (65-110); Potassium 4.1 mmol/L (3.4-5.0); Sodium 142 mmol/L (137-145)
[2021-03-31 06:46] LABS: INR 1.2; Prothrombin Time 14.9 Seconds (11.1-14.7)
--- NOTE | 2021-03-31 09:23 | PM.IMPN ---
Progress Note: A&P Assessment and Plan (1) Acute kidney injury superimposed on chronic kidney disease: Code(s): N17.9 - Acute kidney failure, unspecified; N18.9 - Chronic kidney disease, unspecified Status: Acute Assessment and Plan: Suspect prerenal component in the setting of poor oral intake recently in addition to an ATN component as well related to that, there is evidence of granular casts on urinalysis. Creatinine improving with hydration. Baseline creatinine 1.1-1.3, admission creatinine 1.6, now back to baseline (2) Pneumonia: Code(s): J18.9 - Pneumonia, unspecified organism Status: Acute Assessment and Plan: Chest x-ray shows some infiltrates in the left lower lobe consistent with atelectasis versus pneumonia Has been initiated on azithromycin and ceftriaxone 03/27 (3) Pneumonia due to COVID-19 virus: Code(s): U07.1 - COVID-19; J12.82 - Pneumonia due to coronavirus disease 2018 Status: Acute Assessment and Plan: Her COVID testing came back positive Initiate dexamethasone and remdesivir 03/29 COVID isolation precautions Supportive measures (4) Dehydration: Code(s): E86.0 - Dehydration Status: Acute Assessment and Plan: Feels better with IV hydration. Discontinue IVF and encourage oral intake. Continue to monitor. (5) Atrial fibrillation with rapid ventricular response: Code(s): I48.91 - Unspecified atrial fibrillation Status: Acute Assessment and Plan: This seems to be of new onset. Possibly in the setting of COVID/pneumonia. Telemetry Currently in sinus rhythm in 60s, has been paroxysmal, initiated on metoprolol. Possibly in the setting of hyperkalemia Echocardiogram 03/30: LV systolic function and structure normal, EF 65-70%, no pulmonary hypertension, IVC normal. Left atrium dimension is normal. TSH normal CHADsVAsc is 4 (2 for age above 75, 1 for hypertension, and 1 for female), initiated anticoagulation with Eliquis, unfortunately not covered by insurance and will have to be on Coumadin, at this point given frailty and fall risk, will hold anticoagulation. Appreciate cardiology's input. I also discussed this with her son, with plan to rediscuss this issue in the outpatient setting when she is recovered from COVID. Given rising troponin and new onset afib, consulted cardiology for evaluation, appreciate help (6) Hyperkalemia: Code(s): E87.5 - Hyperkalemia Status: Acute Assessment and Plan: In the setting of acute kidney injury while taking potassium and losartan. Now resolved, potassium noted to be low today will replace. (7) Hypertension: Code(s): I10 - Essential (primary) hypertension Status: Acute Assessment and Plan: Hold home losartan given hyperkalemia and soft blood pressure. (8) Iron deficiency anemia: Code(s): D50.9 - Iron deficiency anemia, unspecified Status: Acute Assessment and Plan: Continue home ferrous sulfate supplement (9) Alzheimer's dementia: Code(s): G30.9 - Alzheimer's disease, unspecified; F02.80 - Dementia in other diseases classified elsewhere without behavioral disturbance Status: Acute Assessment and Plan: Continue home donepezil (10) Hyperlipidemia: Code(s): E78.5 - Hyperlipidemia, unspecified Status: Acute Assessment and Plan: Continue home atorvastatin (11) Dysphagia: Code(s): R13.10 - Dysphagia, unspecified Status: Acute Assessment and Plan: Has been evaluated by speech therapy. Soft and Bite Sized diet with Mildly Thick Liquids to facilitate the prevention of aspiration, shakes and Magic Cup to increase caloric intake while offering pleasurable foods. Modified Barium Swallow is recommended as soon as patient is able (deferred due to COVID). (12) Anemia: Code(s): D64.9 - Anemia, unspecified Status: Acute Assessment and Plan: Normocytic. Hemoglobin
[2021-03-31] MEDS: FERROUS SULFATE 324 MG TABLET PO (10:07)
[2021-03-31] MEDS: METOPROLOL TARTRATE 12.5 MG TABLET PO ×2 (10:08→20:05)
[2021-03-31] MEDS: OPTI-GEN TAB 1 TABLET PO (10:08)
[2021-03-31] MEDS: DONEPEZIL HCL 5 MG TABLET PO (10:08)
[2021-03-31] MEDS: ENOXAPARIN 30 MG/0.3 ML SYRINGE SUB-Q (10:09)
--- NOTE | 2021-03-31 13:16 | PC.NURSE ---
This patient, Jigar Raymond, was received from IMU on 03/31/21 at 1315. Patient/family oriented to unit policies and routines
--- NOTE | 2021-03-31 13:29 | PC.NURSE ---
This patient, Jigar Raymond, was transferred to [ [id number] ] on 03/31/21 at 1315. Personal belongings sent with patient. Report given to [ DAWSON Lawson. ]. Appropriate documentation sent with patient.
[2021-03-31] MEDS: REMDESIVIR 100 MG/NS 250 ML 100 MG/250 ML BAG 250 MG IVPB (23:49)
[2021-04-01] VITALS (10 sets, daily range): BP systolic 121–143; BP diastolic 55–74; PULSE 60–90; RESP 16–22; TEMP 35.7–36.5; O2SAT 88–97
[2021-04-01] MEDS: AMIODARONE HCL 200 MG TABLET 400 MG PO (03:55)
[2021-04-01 06:57] LABS: Hematocrit 33.7 % (37.0-47.0); Hemoglobin 9.8 g/dL (12.0-15.0); Mean Corpuscular HGB Conc 29.1 g/dl (32-36); Mean Corpuscular Hemoglobin 30.4 pg (26-34); Mean Corpuscular Volume 104.7 fl (80-100); Mean Platelet Volume 10.8 fl (7.4-10.4); Platelet Count Result 232 k/mm3 (150-375); Red Blood Count 3.22 M/mm3 (4.2-5.4); Red Cell Distribution Width 14.1 % (11.5-14.5); White Blood Count 9.8 K/mm3 (4.5-10.0)
[2021-04-01 07:03] LABS: Alanine Aminotransferase 35 U/L (4-35); Anion Gap 5 mmol/L (8-16); Blood Urea Nitrogen 29 mg/dL (7-17); Calcium 8.4 mg/dL (8.4-10.2); Carbon Dioxide 30 mmol/L (22-30); Chloride 107 mmol/L (98-107); Estimated CRCL calculation 23 ml/min; Estimated Glomerular Filt Rate 47; Glucose 103 mg/dL (65-110); INR 1.2; Potassium 3.6 mmol/L (3.4-5.0); Prothrombin Time 14.7 Seconds (11.1-14.7); Sodium 142 mmol/L (137-145)
--- NOTE | 2021-04-01 08:42 | PM.PNCARD ---
Progress Note: A&P Assessment and Plan (1) Elevated troponin: Code(s): R77.8 - Other specified abnormalities of plasma proteins Status: Acute Assessment and Plan: Two elevated troponin levels 0.072, 0.288. Troponin levels were drawn for unclear reasons. Per the medical record it does not appear that she has any cardiac history whatsoever. No evidence of ischemia on her EKG. Denies any chest pain. Echo showed normal LVEF 60-65%, grade I diastolic dysfunction (2) Hyperkalemia: Code(s): E87.5 - Hyperkalemia Status: Acute Assessment and Plan: Resolved. (3) Hypertension: Code(s): I10 - Essential (primary) hypertension Status: Acute Assessment and Plan: BP at goal currently. (4) Atrial fibrillation with rapid ventricular response: Code(s): I48.91 - Unspecified atrial fibrillation Status: Acute Assessment and Plan: New onset of atrial fibrillation noticed on telemetry while patient was in the emergency department. She was given 1 dose of IV diltiazem and converted to sinus rhythm. She remains in sinus rhythm with a rate in the 70s. She was placed on apixaban as she has a CHADs2 Vasc score of 3 (age, female gender, hypertension). Will need to assess fall risk to determine appropriateness of systemic anticoagulation. - OAC has been discontinueddue to frailty, high risk for falls - Echo showed normal LVEF 60-65%, grade I diastolic dysfunction - Was initiated on oral amiodarone for AF RVR on 03/29/21 with subsequent conversion to sinus rhythm. Maintaining SR. Decrease amiodarone to 200mg daily. Additional Plan We were asked to see this patient for the reason of elevated troponins and AFib. She has converted to sinus rhythm on amiodarone is maintaining sinus rhythm. She does not have any active cardiac issues at the moment. She should follow up in our office upon discharge from the hospital. We will sign off for now. Please do not hesitate to contact us if we can be of assistance in the care of this patient in any way. Thank you for asking us to see her. Subjective Date/time seen: 04/01/21 08:42 Interval history: Follow-up visit in this 85-year-old woman with: 03/29/2020: Asymptomatic paroxysmal atrial fibrillation. Placed yesterday on beta-myla therapy. Called by nursing staff this afternoon that there is a recurrence of AFib with RVR with which she is essentially asymptomatic and hemodynamically stable. Patient was admitted yesterday with complaints of weakness in general. Found to have evidence of coronavirus. Does have pneumonia on chest x-ray. 04/01/2020: Converted to normal sinus rhythm and remains in normal sinus rhythm currently with a rate in the 60s. Denies shortness of breath, palpitations, chest pain. Review of Systems Review of Systems: All systems reviewed & are unremarkable except as noted in HPI and below Exam Const: General: comfortable and no acute distress Other: Debilitated elderly woman sitting in bed eating breakfast HENMT: Head: normal to inspection Mouth: Yes dry mucous membranes Eyes: General: appearance normal, both eyes and all related structures Sclera: sclerae normal Pupils: Equal, round and reactive pupils present Neck: Neck: supple and no JVD Resp: Effort & Inspection: normal respiratory effort Auscultation: rhonchi Other: Diminished breath sounds bilaterally Cardio: Rate: regular rate Rhythm: regular rhythm Heart sounds: no murmurs GI: Auscultation: normal bowel sounds Skin: General skin exam: normal color Neuro: Cranial nerves: Yes Equal, round and reactive pupils present Cognition (Neuro): abnormal cognition Other: Patient with significant dementia Extrem: General: normal to inspection, no edema and no pedal edema Psych: Appearance: grossly normal Mental Status: mental status grossly normal Objective Data Vital Signs Vital Signs: Vital Signs - 24 hr 03/31/21 10:00 03/31/21
[2021-04-01] MEDS: METOPROLOL TARTRATE 12.5 MG TABLET PO ×2 (09:17→20:33)
[2021-04-01] MEDS: ENOXAPARIN 30 MG/0.3 ML SYRINGE SUB-Q (09:17)
[2021-04-01] MEDS: DONEPEZIL HCL 5 MG TABLET PO (09:19)
[2021-04-01] MEDS: FERROUS SULFATE 324 MG TABLET PO (09:19)
[2021-04-01] MEDS: OPTI-GEN TAB 1 TABLET PO (09:19)
--- NOTE | 2021-04-01 09:21 | PCSTNOTE ---
Bedside Swallow Evaluation (BSE) was re-ordered by Dr. Kaiser. There was a Bedside Swallow Eval completed last week. This BSE was canceled this date with permission of [facility], but may be re-ordered if indicated.
[2021-04-01] MEDS: AMIODARONE HCL 200 MG TABLET PO (10:07)
[2021-04-01 10:42] LABS: Procalcitonin 1.4 ng/mL
--- NOTE | 2021-04-01 12:17 | P.PNIM_ITS ---
Progress Note: A&P Assessment and Plan (1) Pneumonia due to COVID-19 virus: Code(s): U07.1 - COVID-19; J12.82 - Pneumonia due to coronavirus disease 2019 Status: Acute Assessment and Plan: Positive test on 03/27/2021. CXR showed airspace opacities of the bilateral lung bases in left mid lung zone consistent with pneumonia. * Continue Remdesivir for up to 5 days. Last dose due tonight * Continue dexamethasone for up to 10 days. Started on 03/29/21 * She is maintaining adequate oxygenation on 2 L per nasal cannula. Continue supplemental O2 as needed with goal saturation 90% or above * Supportive care to include bronchodilators, expectorants, antipyretics, incentive spirometry * Trend acute phase reactants * Continue isolation precautions * Will consider home O2 evaluation tomorrow if continued improvement (2) Acute kidney injury superimposed on chronic kidney disease: Code(s): N17.9 - Acute kidney failure, unspecified; N18.9 - Chronic kidney disease, unspecified Status: Acute Assessment and Plan: Resolved. Creatinine were elevated at 1.6 at presentation. Baseline creatinine is 1.1-1.3. * Suspect prerenal etiology in the setting of poor p.o. intake * Creatinine improved with hydration and is now at baseline (3) Atrial fibrillation with rapid ventricular response: Code(s): I48.91 - Unspecified atrial fibrillation Status: Acute Assessment and Plan: This seems to be of new onset. Possibly in the setting of COVID/pneumonia. * Appreciate cardiology consultation * She has converted back to sinus rhythm after receiving IV Cardizem. Rate is well controlled at this time. * Continue amiodarone * Chads2-Vasc score is 4 (2 for age >75, 1 for hypertension, and 1 for female). She was initiated on Eliquis, however this has subsequently been discontinued due to her frailty and high risk for falls. (4) Hyperkalemia: Code(s): E87.5 - Hyperkalemia Status: Acute Assessment and Plan: Resolved. Occurred in the setting of acute kidney injury while taking potassium and losartan. Potassium 3.6 today * Monitor BMP daily (5) Hypertension: Code(s): I10 - Essential (primary) hypertension Status: Acute Assessment and Plan: Blood pressure reviewed and has been generally well controlled, on the lower end of normal. Last BP 140/58. * Home losartan on hold given KRISTIE and softer blood pressure * Monitor BP trends and adjust medication regimen as needed (6) Iron deficiency anemia: Code(s): D50.9 - Iron deficiency anemia, unspecified Status: Acute Assessment and Plan: H&H remaining stable. Vitals are stable with no evidence of blood loss. * Continue home ferrous sulfate supplement (7) Alzheimer's dementia: Code(s): G30.9 - Alzheimer's disease, unspecified; F02.80 - Dementia in other diseases classified elsewhere without behavioral disturbance Status: Acute Assessment and Plan: Seems mental status waxes and wanes * Continue home donepezil (8) Dysphagia: Code(s): R13.10 - Dysphagia, unspecified Status: Acute Assessment and Plan: Bedside swallow study performed on 03/28/2021 * Continue with soft and bite size diet with mildly thickened liquids at this time * Aspiration precautions in place. * She will need a modified barium swallow once no longer on isolation due to COVID-19 Subjective Date/time seen: 04/01/21 12:17 Interv
--- NOTE | 2021-04-01 12:17 | PM.IMPN ---
Progress Note: A&P Assessment and Plan (1) Pneumonia due to COVID-19 virus: Code(s): U07.1 - COVID-19; J12.82 - Pneumonia due to coronavirus disease 2019 Status: Acute Assessment and Plan: Positive test on 03/27/2021. CXR showed airspace opacities of the bilateral lung bases in left mid lung zone consistent with pneumonia. Continue Remdesivir for up to 5 days. Last dose due tonight Continue dexamethasone for up to 10 days. Started on 03/29/21 She is maintaining adequate oxygenation on 2 L per nasal cannula. Continue supplemental O2 as needed with goal saturation 90% or above Supportive care to include bronchodilators, expectorants, antipyretics, incentive spirometry Trend acute phase reactants Continue isolation precautions Will consider home O2 evaluation tomorrow if continued improvement (2) Acute kidney injury superimposed on chronic kidney disease: Code(s): N17.9 - Acute kidney failure, unspecified; N18.9 - Chronic kidney disease, unspecified Status: Acute Assessment and Plan: Resolved. Creatinine were elevated at 1.6 at presentation. Baseline creatinine is 1.1-1.3. Suspect prerenal etiology in the setting of poor p.o. intake Creatinine improved with hydration and is now at baseline (3) Atrial fibrillation with rapid ventricular response: Code(s): I48.91 - Unspecified atrial fibrillation Status: Acute Assessment and Plan: This seems to be of new onset. Possibly in the setting of COVID/pneumonia. Appreciate cardiology consultation She has converted back to sinus rhythm after receiving IV Cardizem. Rate is well controlled at this time. Continue amiodarone Chads2-Vasc score is 4 (2 for age >75, 1 for hypertension, and 1 for female). She was initiated on Eliquis, however this has subsequently been discontinued due to her frailty and high risk for falls. (4) Hyperkalemia: Code(s): E87.5 - Hyperkalemia Status: Acute Assessment and Plan: Resolved. Occurred in the setting of acute kidney injury while taking potassium and losartan. Potassium 3.6 today Monitor BMP daily (5) Hypertension: Code(s): I10 - Essential (primary) hypertension Status: Acute Assessment and Plan: Blood pressure reviewed and has been generally well controlled, on the lower end of normal. Last BP 140/58. Home losartan on hold given KRISTIE and softer blood pressure Monitor BP trends and adjust medication regimen as needed (6) Iron deficiency anemia: Code(s): D50.9 - Iron deficiency anemia, unspecified Status: Acute Assessment and Plan: H&H remaining stable. Vitals are stable with no evidence of blood loss. Continue home ferrous sulfate supplement (7) Alzheimer's dementia: Code(s): G30.9 - Alzheimer's disease, unspecified; F02.80 - Dementia in other diseases classified elsewhere without behavioral disturbance Status: Acute Assessment and Plan: Seems mental status waxes and wanes Continue home donepezil (8) Dysphagia: Code(s): R13.10 - Dysphagia, unspecified Status: Acute Assessment and Plan: Bedside swallow study performed on 03/28/2021 Continue with soft and bite size diet with mildly thickened liquids at this time Aspiration precautions in place. She will need a modified barium swallow once no longer on isolation due to COVID-19 Subjective Date/time seen: 04/01/21 12:17 Interval history: Date of service: 04/01/2021 Jigar Raymond is an 85-year-old female with a history of dementia, CKD, hypertension, iron deficiency anemia, and several other comorbidities who is seen in follow-up for COVID-19 pneumonia. She is doing well today. She has no specific complaints at this time. She denies shortness of breath or chest pain. She does endorse cough but reports that is nonproductive and she is not able to expectorates. Her appetite has been go
[2021-04-01] MEDS: guaiFENesin 12 HR 600 MG TABCR PO (20:33)
[2021-04-01] MEDS: HYDROcodone/acetaminophen (*CRX) 5-325 MG TABLET 1 TAB PO (20:41)
[2021-04-01] MEDS: REMDESIVIR 100 MG/NS 250 ML 100 MG/250 ML BAG 250 MG IVPB (21:46)
[2021-04-02] VITALS (17 sets, daily range): BP systolic 134–160; BP diastolic 60–74; PULSE 60–94; RESP 14–18; TEMP 35.8–36.5; O2SAT 77–96
[2021-04-02 06:36] LABS: Hematocrit 32.1 % (37.0-47.0); Hemoglobin 9.8 g/dL (12.0-15.0); Mean Corpuscular HGB Conc 30.5 g/dl (32-36); Mean Corpuscular Hemoglobin 30.4 pg (26-34); Mean Corpuscular Volume 99.7 fl (80-100); Mean Platelet Volume 10.6 fl (7.4-10.4); Platelet Count Result 218 k/mm3 (150-375); Red Blood Count 3.22 M/mm3 (4.2-5.4); Red Cell Distribution Width 13.9 % (11.5-14.5); White Blood Count 15.6 K/mm3 (4.5-10.0)
[2021-04-02 06:51] LABS: INR 1.2; Prothrombin Time 14.7 Seconds (11.1-14.7)
[2021-04-02 06:58] LABS: Alanine Aminotransferase 186 U/L (4-35); Albumin Level 2.5 g/dL (3.5-5.1); Alkaline Phosphatase 88 U/L (38-126); Anion Gap 5 mmol/L (8-16); Aspartate Amino Transferase 227 U/L (14-36); Bilirubin,Total 0.5 mg/dL (0.2-1.3); Blood Urea Nitrogen 30 mg/dL (7-17); CRP 1.4 mg/dL (<1.0); Calcium 8.3 mg/dL (8.4-10.2); Carbon Dioxide 29 mmol/L (22-30); Chloride 107 mmol/L (98-107); Estimated CRCL calculation 23 ml/min; Estimated Glomerular Filt Rate 47; Glucose 95 mg/dL (65-110); Lactate Dehydrogenase 658 U/L (313-618); Potassium 3.4 mmol/L (3.4-5.0); Sodium 141 mmol/L (137-145)
[2021-04-02] MEDS: ENOXAPARIN 30 MG/0.3 ML SYRINGE SUB-Q (08:30)
[2021-04-02] MEDS: AMIODARONE HCL 200 MG TABLET PO (08:31)
[2021-04-02] MEDS: FERROUS SULFATE 324 MG TABLET PO (08:31)
[2021-04-02] MEDS: METOPROLOL TARTRATE 12.5 MG TABLET PO ×2 (08:31→20:03)
[2021-04-02] MEDS: guaiFENesin 12 HR 600 MG TABCR PO ×2 (08:31→20:03)
[2021-04-02] MEDS: OPTI-GEN TAB 1 TABLET PO (08:32)
[2021-04-02] MEDS: DONEPEZIL HCL 5 MG TABLET PO (08:32)
--- NOTE | 2021-04-02 12:07 | PCNFU ---
Nutrition Follow-Up Complete: Underweight related to dementia as evidenced by BMI of 16.1. Goal: Patient to meet estimated nutritional needs. Limited progress towards goal. We will continue current goal. Pt current nutrition is Renal Dialysis with Nepro BID. Last recorded weight is 42.5 kg, up from 41.3 kg on admit. Bowel Motility:+BM 04/01 Labs Reviewed:BUN 30,Cr 1.10,Alb 2.5,Hct 32.1,Hgb 9.8 Meds Noted:Lopressor, Pacerone,Lovenox, Mucinex, Ocuvite Additional Notes: Patient was called today due to COVID 19. No answer on telephone. Spoke with nursing today, regarding oral intake. 0-20% of meals reported. PO intake is encouraged. Nepro shake will provide an additional 425 kcals and 19 gms protein. Skin: bilateral buttock friction reported. Monitoring: Follow up every 5 days.
--- NOTE | 2021-04-02 12:12 | PCRCNOTE ---
HOME O2 EVAL ATTEMPTED. PT DESATS AT 77% ON 6L. PT UP TO BATHROOM WITH WALKER AND GAIT BELT. PT WEAK BUT WALKED WELL. SATS LOW, INCREASED TO 6L, UNABLE TO KEEP SATS UP WITH EXERTION. RECOVERED TO 3 L WITH REST
--- NOTE | 2021-04-02 14:36 | PM.IMPN ---
Progress Note: A&P Assessment and Plan (1) Pneumonia due to COVID-19 virus: Code(s): U07.1 - COVID-19; J12.82 - Pneumonia due to coronavirus disease 2019 Status: Acute Assessment and Plan: Positive test on 03/27/2021. CXR showed airspace opacities of the bilateral lung bases in left mid lung zone consistent with pneumonia. She will complete a 5 day course of remdesivir to night. ALT has increased but still <10x upper limit of normal Continue dexamethasone for up to 10 days. Started on 03/29/21 She had been maintaining adequate oxygenation on 2 L per nasal cannula, therefore O2 eval attempted today. Patient desaturated with exertion down to 77% and O2 had to be increased to 6 L. Continue supplemental O2 as needed and wean as tolerated to goal. Supportive care to include bronchodilators, expectorants, antipyretics, incentive spirometry Trend acute phase reactants Continue isolation precautions She has not been vaccinated for COVID-19 (2) Acute kidney injury superimposed on chronic kidney disease: Code(s): N17.9 - Acute kidney failure, unspecified; N18.9 - Chronic kidney disease, unspecified Status: Acute Assessment and Plan: Resolved. Creatinine were elevated at 1.6 at presentation. Baseline creatinine is 1.1-1.3. Suspect prerenal etiology in the setting of poor p.o. intake Creatinine improved with hydration and is now at baseline (3) Atrial fibrillation with rapid ventricular response: Code(s): I48.91 - Unspecified atrial fibrillation Status: Acute Assessment and Plan: This seems to be of new onset. Possibly in the setting of COVID/pneumonia. Appreciate cardiology consultation She has converted back to sinus rhythm after receiving IV Cardizem. Rate is well controlled at this time. Continue amiodarone Chads2-Vasc score is 4 (2 for age >75, 1 for hypertension, and 1 for female). She was initiated on Eliquis, however this has subsequently been discontinued due to her frailty and high risk for falls. (4) Hyperkalemia: Code(s): E87.5 - Hyperkalemia Status: Acute Assessment and Plan: Resolved. Occurred in the setting of acute kidney injury while taking potassium and losartan. Potassium 3.4 today Monitor BMP daily (5) Hypertension: Code(s): I10 - Essential (primary) hypertension Status: Acute Assessment and Plan: Blood pressure reviewed and has been generally well controlled. Last BP 151/74 Resume home losartan Monitor BP trends and adjust medication regimen as needed (6) Iron deficiency anemia: Code(s): D50.9 - Iron deficiency anemia, unspecified Status: Acute Assessment and Plan: H&H remaining stable. Vitals are stable with no evidence of blood loss. Continue home ferrous sulfate supplement (7) Alzheimer's dementia: Code(s): G30.9 - Alzheimer's disease, unspecified; F02.80 - Dementia in other diseases classified elsewhere without behavioral disturbance Status: Acute Assessment and Plan: Seems mental status waxes and wanes Continue home donepezil (8) Dysphagia: Code(s): R13.10 - Dysphagia, unspecified Status: Acute Assessment and Plan: Bedside swallow study performed on 03/28/2021 Continue with soft and bite size diet with mildly thickened liquids at this time Aspiration precautions in place. She will need a modified barium swallow once no longer on isolation due to COVID-19 Subjective Date/time seen: 04/02/21 14:36 Interval history: Date of service: 04/01/2021 Jigar Raymond is an 85-year-old female with a history of dementia, CKD, hypertension, iron deficiency anemia, and several other comorbidities who is seen in follow-up for COVID-19 pneumonia. She says that she has aggravated today because she wants to go home. She continues to endorse productive cough with thick white sputum. She thinks that he
[2021-04-02] MEDS: REMDESIVIR 100 MG/NS 250 ML 100 MG/250 ML BAG 250 MG IVPB (21:17)
[2021-04-03] VITALS (11 sets, daily range): BP systolic 116–148; BP diastolic 50–72; PULSE 66–76; RESP 16–18; TEMP 35.7–36.4; O2SAT 90–95
[2021-04-03 06:13] LABS: Hematocrit 33.7 % (37.0-47.0); Hemoglobin 9.5 g/dL (12.0-15.0); Mean Corpuscular HGB Conc 28.2 g/dl (32-36); Mean Corpuscular Hemoglobin 30.3 pg (26-34); Mean Corpuscular Volume 107.3 fl (80-100); Mean Platelet Volume 10.4 fl (7.4-10.4); Platelet Count Result 209 k/mm3 (150-375); Red Blood Count 3.14 M/mm3 (4.2-5.4); White Blood Count 12.5 K/mm3 (4.5-10.0)
[2021-04-03 06:29] LABS: Alanine Aminotransferase 254 U/L (4-35); Albumin Level 2.5 g/dL (3.5-5.1); Alkaline Phosphatase 86 U/L (38-126); Anion Gap 5 mmol/L (8-16); Aspartate Amino Transferase 217 U/L (14-36); Bilirubin,Total 0.6 mg/dL (0.2-1.3); Blood Urea Nitrogen 30 mg/dL (7-17); CRP 1.4 mg/dL (<1.0); Carbon Dioxide 28 mmol/L (22-30); Chloride 106 mmol/L (98-107); Estimated CRCL calculation 25 ml/min; Estimated Glomerular Filt Rate 53; Glucose 83 mg/dL (65-110); Lactate Dehydrogenase 567 U/L (313-618); Potassium 3.5 mmol/L (3.4-5.0); Sodium 139 mmol/L (137-145)
[2021-04-03] MEDS: AMIODARONE HCL 200 MG TABLET PO (09:05)
[2021-04-03] MEDS: ENOXAPARIN 30 MG/0.3 ML SYRINGE SUB-Q (09:05)
[2021-04-03] MEDS: OPTI-GEN TAB 1 TABLET PO (09:05)
[2021-04-03] MEDS: LOSARTAN POTASSIUM 50 MG TABLET PO (09:05)
[2021-04-03] MEDS: guaiFENesin 12 HR 600 MG TABCR PO ×2 (09:06→21:25)
[2021-04-03] MEDS: FERROUS SULFATE 324 MG TABLET PO (09:06)
[2021-04-03] MEDS: DONEPEZIL HCL 5 MG TABLET PO (09:06)
[2021-04-03] MEDS: METOPROLOL TARTRATE 12.5 MG TABLET PO ×2 (09:07→21:25)
--- NOTE | 2021-04-03 12:41 | PM.IMPN ---
Progress Note: A&P Assessment and Plan (1) Pneumonia due to COVID-19 virus: Code(s): U07.1 - COVID-19; J12.82 - Pneumonia due to coronavirus disease 2019 Status: Acute Assessment and Plan: Positive test on 03/27/2021. CXR showed airspace opacities of the bilateral lung bases in left mid lung zone consistent with pneumonia. Completed 5 days of IV remdesivir on 04/02/2021. Continue dexamethasone for up to 10 days. Started on 03/29/21 She had been maintaining adequate oxygenation on 2 L per nasal cannula but was increased up to 6 L per nasal cannula after home O2 eval was performed on 04/02. Has since been weaned to 3 L and is maintaining adequate oxygenation. The supplemental O2 as needed and titrate to goal of SpO2 90% or above. Supportive care to include bronchodilators, expectorants, antipyretics, incentive spirometry Trend acute phase reactants Continue isolation precautions Repeat CXR performed today given increased oxygen requirements. No significant change in bibasilar pneumonia. Minimal progression and right lower lobe compared to last chest x-ray on 03/27. Could consider addition of Baricitinib if she were to have further increased O2 requirements. Clinically appears to be improving and will continue to monitor closely. She has not been vaccinated for COVID-19 (2) Acute kidney injury superimposed on chronic kidney disease: Code(s): N17.9 - Acute kidney failure, unspecified; N18.9 - Chronic kidney disease, unspecified Status: Acute Assessment and Plan: Resolved. Creatinine were elevated at 1.6 at presentation. Baseline creatinine is 1.1-1.3. Suspect prerenal etiology in the setting of poor p.o. intake Creatinine improved with hydration and is now at baseline (3) Atrial fibrillation with rapid ventricular response: Code(s): I48.91 - Unspecified atrial fibrillation Status: Acute Assessment and Plan: This seems to be of new onset. Possibly in the setting of COVID/pneumonia. Appreciate cardiology consultation She has converted back to sinus rhythm after receiving IV Cardizem. Rate is well controlled at this time. Continue amiodarone Chads2-Vasc score is 4 (2 for age >75, 1 for hypertension, and 1 for female). She was initiated on Eliquis, however this has subsequently been discontinued due to her frailty and high risk for falls. (4) Hyperkalemia: Code(s): E87.5 - Hyperkalemia Status: Acute Assessment and Plan: Resolved. Occurred in the setting of acute kidney injury while taking potassium and losartan. Potassium 3.5 today Monitor BMP daily (5) Hypertension: Code(s): I10 - Essential (primary) hypertension Status: Acute Assessment and Plan: Blood pressure reviewed and has been generally well controlled. Last BP 148/65 Continue home losartan Monitor BP trends and adjust medication regimen as needed (6) Iron deficiency anemia: Code(s): D50.9 - Iron deficiency anemia, unspecified Status: Acute Assessment and Plan: H&H remaining stable. Vitals are stable with no evidence of blood loss. Continue home ferrous sulfate supplement (7) Alzheimer's dementia: Code(s): G30.9 - Alzheimer's disease, unspecified; F02.80 - Dementia in other diseases classified elsewhere without behavioral disturbance Status: Acute Assessment and Plan: She is A&O x4 but does exhibit confusion in conversation. Continue home donepezil (8) Dysphagia: Code(s): R13.10 - Dysphagia, unspecified Status: Acute Assessment and Plan: Bedside swallow study performed on 03/28/2021 Continue with soft and bite size diet with mildly thickened liquids at this time Aspiration precautions in place. She will need a modified barium swallow once no longer on isolation due to COVID-19 (9) Transaminitis: Code(s): R74.01 - Elevation of levels of liver wolfe
[2021-04-04] VITALS (12 sets, daily range): BP systolic 107–132; BP diastolic 44–59; PULSE 60–68; RESP 16–20; TEMP 35.7–36.3; O2SAT 92–98
[2021-04-04 06:54] LABS: Hematocrit 34.3 % (37.0-47.0); Hemoglobin 10.4 g/dL (12.0-15.0); Mean Corpuscular HGB Conc 30.3 g/dl (32-36); Mean Corpuscular Hemoglobin 30.8 pg (26-34); Mean Corpuscular Volume 101.5 fl (80-100); Mean Platelet Volume 10.9 fl (7.4-10.4); Platelet Count Result 272 k/mm3 (150-375); Red Blood Count 3.38 M/mm3 (4.2-5.4); Red Cell Distribution Width 14.4 % (11.5-14.5); White Blood Count 12.4 K/mm3 (4.5-10.0)
[2021-04-04 07:19] LABS: Alanine Aminotransferase 230 U/L (4-35); Albumin Level 2.7 g/dL (3.5-5.1); Alkaline Phosphatase 92 U/L (38-126); Anion Gap 8 mmol/L (8-16); Aspartate Amino Transferase 114 U/L (14-36); Bilirubin,Total 0.7 mg/dL (0.2-1.3); Blood Urea Nitrogen 33 mg/dL (7-17); CRP 1.2 mg/dL (<1.0); Calcium 8.2 mg/dL (8.4-10.2); Carbon Dioxide 27 mmol/L (22-30); Chloride 106 mmol/L (98-107); Estimated CRCL calculation 22 ml/min; Estimated Glomerular Filt Rate 47; Glucose 82 mg/dL (65-110); Lactate Dehydrogenase 514 U/L (313-618); Potassium 3.7 mmol/L (3.4-5.0); Sodium 141 mmol/L (137-145)
[2021-04-04 08:02] LABS: Hepatitis B Surface Antigen Negative (Negative)
[2021-04-04 08:08] LABS: HAV RESULT Negative (Negative); Hepatitis B Core IgM Result Negative (Negative)
[2021-04-04 08:19] LABS: Hepatitis C Virus Antibody Negative (Negative)
--- NOTE | 2021-04-04 09:57 | PM.IMPN ---
Progress Note: A&P Assessment and Plan (1) Pneumonia due to COVID-19 virus: Code(s): U07.1 - COVID-19; J12.82 - Pneumonia due to coronavirus disease 2019 Status: Acute Assessment and Plan: Positive test on 03/27/2021. CXR showed airspace opacities of the bilateral lung bases in left mid lung zone consistent with pneumonia. Completed 5 days of IV remdesivir on 04/02/2021. Continue dexamethasone for up to 10 days. Started on 03/29/21 She had been maintaining adequate oxygenation on 2 L per nasal cannula but was increased up to 6 L per nasal cannula after home O2 eval was performed on 04/02. Has since been weaned to 3 L and is maintaining adequate oxygenation. Continue supplemental O2 as needed and titrate to goal of SpO2 90% or above. Supportive care to include bronchodilators, expectorants, antipyretics, incentive spirometry Trend acute phase reactants Continue isolation precautions Repeat CXR performed 04/03 given increased oxygen requirements. No significant change in bibasilar pneumonia. Minimal progression of right lower lobe compared to last chest x-ray on 03/27. Could consider addition of Baricitinib if she were to have further increased O2 requirements. Clinically appears to be improving and will continue to monitor closely. She has not been vaccinated for COVID-19 (2) Acute kidney injury superimposed on chronic kidney disease: Code(s): N17.9 - Acute kidney failure, unspecified; N18.9 - Chronic kidney disease, unspecified Status: Acute Assessment and Plan: Resolved. Creatinine was elevated at 1.6 at presentation. Baseline creatinine is 1.1-1.3. Suspect prerenal etiology in the setting of poor p.o. intake Creatinine improved with hydration and is now at baseline (3) Atrial fibrillation with rapid ventricular response: Code(s): I48.91 - Unspecified atrial fibrillation Status: Acute Assessment and Plan: This seems to be of new onset. Possibly in the setting of COVID/pneumonia. Appreciate cardiology consultation She has converted back to sinus rhythm after receiving IV Cardizem. Rate is well controlled at this time. Continue amiodarone Chads2-Vasc score is 4 (2 for age >75, 1 for hypertension, and 1 for female). She was initiated on Eliquis, however this was subsequently discontinued due to her frailty and high risk for falls. (4) Hyperkalemia: Code(s): E87.5 - Hyperkalemia Status: Acute Assessment and Plan: Resolved. Occurred in the setting of acute kidney injury while taking potassium and losartan. Potassium 3.5 today Monitor BMP daily (5) Hypertension: Code(s): I10 - Essential (primary) hypertension Status: Acute Assessment and Plan: Blood pressure reviewed and has been generally well controlled. Last BP 132/55 Continue home losartan Monitor BP trends and adjust medication regimen as needed (6) Iron deficiency anemia: Code(s): D50.9 - Iron deficiency anemia, unspecified Status: Acute Assessment and Plan: H&H remaining stable. Vitals are stable with no evidence of blood loss. Continue home ferrous sulfate supplement (7) Alzheimer's dementia: Code(s): G30.9 - Alzheimer's disease, unspecified; F02.80 - Dementia in other diseases classified elsewhere without behavioral disturbance Status: Acute Assessment and Plan: She is A&O x4 but does exhibit confusion in conversation. Continue home donepezil (8) Dysphagia: Code(s): R13.10 - Dysphagia, unspecified Status: Acute Assessment and Plan: Bedside swallow study performed on 03/28/2021 Continue with soft and bite size diet with mildly thickened liquids at this time Aspiration precautions in place. She will need a modified barium swallow once no longer on isolation due to COVID-19 (9) Transaminitis: Code(s): R74.01 - Elevation of levels of liver transam
[2021-04-04] MEDS: guaiFENesin 12 HR 600 MG TABCR PO ×2 (10:17→21:41)
[2021-04-04] MEDS: DONEPEZIL HCL 5 MG TABLET PO (10:17)
[2021-04-04] MEDS: FERROUS SULFATE 324 MG TABLET PO (10:17)
[2021-04-04] MEDS: ENOXAPARIN 30 MG/0.3 ML SYRINGE SUB-Q (10:18)
[2021-04-04] MEDS: AMIODARONE HCL 200 MG TABLET PO (10:18)
[2021-04-04] MEDS: OPTI-GEN TAB 1 TABLET PO (10:23)
[2021-04-04] MEDS: LOSARTAN POTASSIUM 50 MG TABLET PO (10:23)
[2021-04-04] MEDS: METOPROLOL TARTRATE 12.5 MG TABLET PO (21:41)
[2021-04-05] VITALS (22 sets, daily range): BP systolic 101–136; BP diastolic 50–107; PULSE 58–103; RESP 12–20; TEMP 36.1–36.8; O2SAT 82–99
[2021-04-05 06:57] LABS: Hematocrit 32.7 % (37.0-47.0); Hemoglobin 9.8 g/dL (12.0-15.0); Mean Corpuscular Hemoglobin 31.1 pg (26-34); Mean Corpuscular Volume 103.8 fl (80-100); Mean Platelet Volume 10.3 fl (7.4-10.4); Platelet Count Result 225 k/mm3 (150-375); Red Blood Count 3.15 M/mm3 (4.2-5.4); Red Cell Distribution Width 14.6 % (11.5-14.5); White Blood Count 11.9 K/mm3 (4.5-10.0)
[2021-04-05 07:11] LABS: Alanine Aminotransferase 168 U/L (4-35); Albumin Level 2.5 g/dL (3.5-5.1); Alkaline Phosphatase 93 U/L (38-126); Anion Gap 6 mmol/L (8-16); Aspartate Amino Transferase 62 U/L (14-36); Bilirubin,Total 0.6 mg/dL (0.2-1.3); Blood Urea Nitrogen 32 mg/dL (7-17); Calcium 8.2 mg/dL (8.4-10.2); Carbon Dioxide 28 mmol/L (22-30); Chloride 107 mmol/L (98-107); Estimated CRCL calculation 21 ml/min; Estimated Glomerular Filt Rate 43; Glucose 90 mg/dL (65-110); Potassium 3.6 mmol/L (3.4-5.0); Sodium 141 mmol/L (137-145)
[2021-04-05] MEDS: DONEPEZIL HCL 5 MG TABLET PO (09:26)
[2021-04-05] MEDS: guaiFENesin 12 HR 600 MG TABCR PO ×2 (09:26→20:52)
[2021-04-05] MEDS: ENOXAPARIN 30 MG/0.3 ML SYRINGE SUB-Q (09:27)
[2021-04-05] MEDS: LOSARTAN POTASSIUM 50 MG TABLET PO (09:27)
[2021-04-05] MEDS: OPTI-GEN TAB 1 TABLET PO (09:27)
[2021-04-05] MEDS: AMIODARONE HCL 200 MG TABLET PO (09:28)
[2021-04-05] MEDS: FERROUS SULFATE 324 MG TABLET PO (09:28)
--- NOTE | 2021-04-05 10:40 | HOMEO2EVAL ---
Evaluation was performed at [facility] Home Oxygen Evaluation RC: Home Oxygen (O2) Evaluation Start: 04/05/21 07:42 Freq: ONCE Status: Active Protocol: RPE Activity Type Activity Date Activity User E-Sign Co-Sign Detail Recorded Client Recorded Date Recorded By Document 04/05/21 10:20 SAUL [email or web address] 04/05/21 10:40 SAUL Document 04/05/21 10:21 SAUL [email or web address] 04/05/21 10:40 SAUL Document 04/05/21 10:22 SAUL [email or web address] 04/05/21 10:40 SAUL Document 04/05/21 10:23 SAUL [email or web address] 04/05/21 10:40 SAUL Document 04/05/21 10:25 SAUL [email or web address] 04/05/21 10:40 SAUL Document 04/05/21 10:26 SAUL [email or web address] 04/05/21 10:40 SAUL Document 04/05/21 10:28 SAUL [email or web address] 04/05/21 10:40 SAUL Document 04/05/21 10:30 SAUL [email or web address] 04/05/21 10:40 SAUL 04/05/21 04/05/21 04/05/21 10:20 10:21 10:22 Home O2 Evaluation Test Phase Resting Resting Resting Oxygen Delivery Room Air Nasal Cannula Nasal Cannula Oxygen Flow Rate (L/min) 1 2 Pulse Oximetry (90-100 %) 87 L 87 L 87 L Home Oxygen Evaluation Comments Treatment Charges O2 Evaluation - Inpatient 04/05/21 04/05/21 04/05/21 10:23 10:25 10:26 Home O2 Evaluation Test Phase Resting Exercise Exercise Oxygen Delivery Nasal Cannula Nasal Cannula Nasal Cannula Oxygen Flow Rate (L/min) 3 3 4 Pulse Oximetry (90-100 %) 93 82 L 85 L Home Oxygen Evaluation Comments Treatment Charges 04/05/21 04/05/21 10:28 10:30 Home O2 Evaluation Test Phase Exercise Resting Oxygen Delivery Nasal Cannula Nasal Cannula Oxygen Flow Rate (L/min) 5 3 Pulse Oximetry (90-100 %) 89 L 92 Home Oxygen Evaluation Comments Pt requires 3 l rest and 5 l activity Treatment Charges
--- NOTE | 2021-04-05 11:50 | PCNFU ---
Nutrition Follow-Up Complete: Underweight related to dementia as evidenced by BMI of 16.1. Goal: Patient to meet estimated nutritional needs. Patient is progressing towards goal. We will continue current goal. Pt current nutrition is Soft and bite Sized, Level 6 with Nepro shakes BID Last recorded weight is 42 kg, up from 41.3 kg on admit. Bowel Motility:+BM reported 04/01 Labs Reviewed: BUN 43,Cr 1.2,Alb 2.5,Hct 32.7,Hgb 9.8 Meds Noted:Pacerone,Cozaar,Decadron,Mucinex,Aricept, Ocuvite. Additional Notes: Nutrition follow up. Patient called due to COVID precautions. No answer. Spoke with nursing this morning, oral intake has been fair 0-60% of most meals. Patient continues to receive Nepro shakes BID providing an additional 425 kcals and 19 gms protein. Aspiration precautions continue with plans for MBS when off isolation. Agree with diet orders. Monitoring: Follow up every 5 days.
--- NOTE | 2021-04-05 13:56 | PCRCNOTE ---
home o2 eval completed. pt needs 3 l rest and 5 l exertion.
--- NOTE | 2021-04-05 17:42 | PM.DS ---
DS: Admitting Diagnosis Discharge Date 04/05/21 Admitting Diagnosis Weakness DS: Discharge Diagnosis Discharge Diagnosis (1) Pneumonia due to COVID-19 virus: Code(s): U07.1 - COVID-19; J12.82 - Pneumonia due to coronavirus disease 2019 Status: Acute Assessment and Plan: Pt had a positive COVID test on 03/27/2021. She has not been vaccinated for COVID-19. CXR showed airspace opacities of the bilateral lung bases in left mid lung zone consistent with pneumonia. She completed 5 days of IV remdesivir on 04/02/2021. She continued with dexamethasone during her hospitalization. She had been maintaining adequate oxygenation on 2 L per nasal cannula but was increased up to 6 L per nasal cannula after home O2 eval was performed on 04/02. Repeat CXR performed 04/03 showing no significant change in bibasilar pneumonia. Minimal progression of right lower lobe compared to last chest x-ray on 03/27. She has since been weaned to 3 L and is maintaining adequate oxygenation. Home O2 evaluation today showing patient can use 3L at rest and 5L with exertion. Plan for dischsrge today. Spoke with son and discharge instructions provided. He then tells me that he is working tonight and can not take the patient home. The care givers that wee working for the patieint have COVID so are unavailable. Case managment to discuss if this is a safe discharge (2) Acute kidney injury superimposed on chronic kidney disease: Code(s): N17.9 - Acute kidney failure, unspecified; N18.9 - Chronic kidney disease, unspecified Status: Acute Assessment and Plan: Resolved. Creatinine was elevated at 1.6 at presentation. Baseline creatinine is 1.1-1.3. Cr back down to baseline values. (3) Atrial fibrillation with rapid ventricular response: Code(s): I48.91 - Unspecified atrial fibrillation Status: Acute Assessment and Plan: [place] to be new onset AFib. Possibly in the setting of COVID/pneumonia. Cardiology was consulted and appreciated their input. She has converted back to sinus rhythm after receiving IV Cardizem. Chads2-Vasc score is 4. Echo showing EF 65-70% with Grade I diastolic dysfunction. She was initiated on Eliquis, however this was subsequently discontinued due to her frailty and high risk for falls. Rate was well controlled. She was transitioned to metoprolol and amiodarone. (4) Hyperkalemia: Code(s): E87.5 - Hyperkalemia Status: Acute Assessment and Plan: Resolved. Occurred in the setting of acute kidney injury while taking potassium and losartan. Losartan resumed which she tolerated well (5) Hypertension: Code(s): I10 - Essential (primary) hypertension Status: Acute Assessment and Plan: Blood pressure reviewed and has been generally well controlled. We continued Losartan and Metoprolol. Will decrease Losartan since Metoprolol held at times due to soft BP. (6) Iron deficiency anemia: Code(s): D50.9 - Iron deficiency anemia, unspecified Status: Acute Assessment and Plan: H&H remaining stable. No evidence of blood loss. We continued home ferrous sulfate supplement (7) Alzheimer's dementia: Code(s): G30.9 - Alzheimer's disease, unspecified; F02.80 - Dementia in other diseases classified elsewhere without behavioral disturbance Status: Acute Assessment and Plan: She is A&O x4 but does exhibit confusion at times. We continue home donepezil (8) Dysphagia: Code(s): R13.10 - Dysphagia, unspecified Status: Acute Assessment and Plan: Bedside swallow study performed on 03/28/2021. Diet adjusted with soft and bite size diet with mildly thickened liquids at this time. Aspiration precautions in place. Plan for to have further outpatient speech therpay. (9) Transaminitis: Code(s): R74.01 - Elevation of levels of liver transaminase levels Status: Acute Assessment and Plan: LFTs normal
[2021-04-05] MEDS: METOPROLOL TARTRATE 12.5 MG TABLET PO (20:52)
[2021-04-06] VITALS (10 sets, daily range): BP systolic 78–139; BP diastolic 43–63; PULSE 72–125; RESP 17–20; TEMP 35.6–36.6; O2SAT 90–99
[2021-04-06 07:41] LABS: Alanine Aminotransferase 128 U/L (4-35); Albumin Level 2.8 g/dL (3.5-5.1); Alkaline Phosphatase 86 U/L (38-126); Anion Gap 9 mmol/L (8-16); Aspartate Amino Transferase 43 U/L (14-36); Bilirubin,Total 0.9 mg/dL (0.2-1.3); Blood Urea Nitrogen 31 mg/dL (7-17); Calcium 8.2 mg/dL (8.4-10.2); Carbon Dioxide 26 mmol/L (22-30); Chloride 107 mmol/L (98-107); Estimated CRCL calculation 21 ml/min; Estimated Glomerular Filt Rate 39; Glucose 65 mg/dL (65-110); Potassium 3.5 mmol/L (3.4-5.0); Sodium 142 mmol/L (137-145)
[2021-04-06] MEDS: ENOXAPARIN 30 MG/0.3 ML SYRINGE SUB-Q (10:29)
[2021-04-06] MEDS: LOSARTAN POTASSIUM 25 MG TABLET PO (10:30)
[2021-04-06] MEDS: METOPROLOL TARTRATE 12.5 MG TABLET PO (10:30)
[2021-04-06] MEDS: DONEPEZIL HCL 5 MG TABLET PO (10:30)
[2021-04-06] MEDS: AMIODARONE HCL 200 MG TABLET PO (10:31)
[2021-04-06] MEDS: OPTI-GEN TAB 1 TABLET PO (10:31)
[2021-04-06] MEDS: guaiFENesin 12 HR 600 MG TABCR PO (10:31)
[2021-04-06] MEDS: FERROUS SULFATE 324 MG TABLET PO (10:31)
--- NOTE | 2021-04-06 11:57 | P.DS_ITS ---
DS: Admitting Diagnosis Discharge Date Today 04/06/2021 Admitting Diagnosis COVID pneumonia DS: Discharge Diagnosis Discharge Diagnosis (1) Pneumonia due to COVID-19 virus: Code(s): U07.1 - COVID-19; J12.82 - Pneumonia due to coronavirus disease 2019 Status: Acute Assessment and Plan: Pt had a positive COVID test on 03/27/2021. She has not been vaccinated for COVID-19. CXR showed airspace opacities of the bilateral lung bases in left mid lung zone consistent with pneumonia. She completed 5 days of IV remdesivir on 04/02/2021. She continued with dexamethasone during her hospitalization. She had been maintaining adequate oxygenation on 2 L per nasal cannula but was increased up to 6 L per nasal cannula after home O2 eval was performed on 04/02. Repeat CXR performed 04/03 showing no significant change in bibasilar pneumonia. Minimal progression of right lower lobe compared to last chest x-ray on 03/27. She has since been weaned to 3 L and is maintaining adequate oxygenation. Home O2 evaluation today showing patient can use 3L at rest and 5L with exertion. Plan for dischsrge today. Spoke with son and discharge instructions provided. He then tells me that he is working tonight and can not take the patient home. The care givers that wee working for the patieint have COVID so are unavailable. Case managment to discuss if this is a safe discharge (2) Acute kidney injury superimposed on chronic kidney disease: Code(s): N17.9 - Acute kidney failure, unspecified; N18.9 - Chronic kidney disease, unspecified Status: Acute Assessment and Plan: Resolved. Creatinine was elevated at 1.6 at presentation. Baseline creatinine is 1.1-1.3. Cr back down to baseline values. (3) Atrial fibrillation with rapid ventricular response: Code(s): I48.91 - Unspecified atrial fibrillation Status: Acute Assessment and Plan: Jacobson to be new onset AFib. Possibly in the setting of COVID/pneumonia. Cardiology was consulted and appreciated their input. She has converted back to sinus rhythm after receiving IV Cardizem. Chads2-Vasc score is 4. Echo showing EF 65-70% with Grade I diastolic dysfunction. She was initiated on Eliquis, however this was subsequently discontinued due to her frailty and high risk for falls. Rate was well controlled. She was transitioned to metoprolol and amiodarone. (4) Hyperkalemia: Code(s): E87.5 - Hyperkalemia Status: Acute Assessment and Plan: Resolved. Occurred in the setting of acute kidney injury while taking potassium and losartan. Losartan resumed which she tolerated well (5) Hypertension: Code(s): I10 - Essential (primary) hypertension Status: Acute Assessment and Plan: Blood pressure reviewed and has been generally well controlled. We continued Losartan and Metoprolol. Will decrease Losartan since Metoprolol held at times due to soft BP. (6) Iron deficiency anemia: Code(s): D50.9 - Iron deficiency anemia, unspecified Status: Acute Assessment and Plan: H&H remaining stable. No evidence of blood loss. We continued home ferrous sulfate supplement (7) Alzheimer's dementia: Code(s): G30.9 - Alzheimer's disease, unspecified; F02.80 - Dementia in other diseases classified elsewhere without behavioral disturbance Status: Acute Assessment and Plan: She is A&O x4 but does exhibit confusion at times. We continue home donepezil (8) Dysphagia: Code(s): R13.10 - Dysphagia, unspecified Status: Acute Assessment and Pl
== END 2021-04-06 13:00 | disposition home health service (06) | DRG 177 ==
LOC: ANHED 15:08 → ANH3MEDSUR 17:11 → ANHIMU 20:42 → ANH3MEDSUR 04-01 07:13 → ANHIMU 04-09 17:57
PROVIDERS: Internal Medicine; Internal Medicine Nephrology; Physician Assistant; Admitting Provider Hospitalist; Emergency Provider Emergency Medicine; PCP Nurse Practitioner Adult Health; Visit Provider Internal Medicine
DX: U07.1 COVID-19 (principal); N17.0 Acute kidney failure with tubular necrosis; J12.82 Pneumonia due to coronavirus disease 2019; Z79.82 Long term (current) use of aspirin; G30.9 Alzheimer's disease, unspecified; F02.80 Dementia in other diseases classified elsewhere, unspecified severity, without behavioral disturbance, psychotic disturbance, mood disturbance, and anxiety; K57.90 Diverticulosis of intestine, part unspecified, without perforation or abscess without bleeding; I10 Essential (primary) hypertension; I48.91 Unspecified atrial fibrillation; E87.5 Hyperkalemia; I12.9 Hypertensive chronic kidney disease with stage 1 through stage 4 chronic kidney disease, or unspecified chronic kidney disease; E78.5 Hyperlipidemia, unspecified; D50.9 Iron deficiency anemia, unspecified; N18.30 Chronic kidney disease, stage 3 unspecified; E86.0 Dehydration; R13.10 Dysphagia, unspecified; R74.01 Elevation of levels of liver transaminase levels; T37.5X5A Adverse effect of antiviral drugs, initial encounter; Y92.230 Patient room in hospital as the place of occurrence of the external cause; R77.8 Other specified abnormalities of plasma proteins
CPT/HCPCS: 36415; 51701; 71045; 71046; 80048; 80053; 80074; 81001; 82550; 82565; 82607; 82728; 82746; 82948; 83036; 83540; 83550; 83615; 83735; 84145; 84443; 84460; 84484; 85025; 85027; 85046; 85610; 86140; 93005; 93306; 94618; 96361; 96365; 96366; 96367; 96372; 96375; 97110; 97116; 97161; 97165; 97530; 97535; 99285; A9270; C9803; G0378; J0456; J0610; J0696; J1100; J1650; J1815; J2270; J7030; U0003; U0005

== ENCOUNTER 2021-04-06 17:04 | Inpatient (IN) | payer MEDICARE, SELFPAY ==
[2021-04-06] VITALS (10 sets, daily range): BP systolic 97–128; BP diastolic 44–58; PULSE 67–80; RESP 12–20; TEMP 36.1–36.8; O2SAT 93–100; BMI 17.9
--- NOTE | ~2021-04-06 | CT_ITS ---
EXAMINATION: CT abdomen pelvis wo con DATE: 04/12/2021 12:09 INDICATION: Fungemia. Abdominal pain. TECHNIQUE: Computed tomography (CT) of the abdomen and pelvis was performed without intravenous contr ast. Automated exposure control and iterative reconstruction technique were employed. The dose-length product was 343.37 mGy-cm. COMPARISON: CT abdomen and pelvis 07/24/2017 FINDINGS: There are small pleural effusions. There is atelectasis in the lungs bilaterally with a dep endent predominance. The heart size is normal. There are coronary artery calcifications. No pericardi al effusion. The liver and spleen are normal. There are changes of cholecystectomy. The pancreas, adr enal glands, and right kidney are normal. There is an 8 mm cyst in left kidney. There is diverticulos is of the colon without evidence of diverticulitis. There are no dilated loops of bowel. The appendix is not visualized. There is a 6.0 x 1.3 x 4.6 cm calcified mass at the root of the small bowel mesen maximiliano. There are widespread arterial calcifications. There is a moderate volume of ascites. There are no pathologically enlarged lymph nodes. There is severe lumbar spondylosis. There is a chronic burst fracture of L1. IMPRESSION: 1. Moderate volume of ascites. 2. Small bilateral pleural effusions. 3. 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 Reviewed, dictated and finalized at location A. IMPRESSION: 1. Moderate volume of ascites. 2. Small bilateral pleural effusions. 3. Stable calcified mass at the root of the small bowel mesentery, consistent w ith carcinoid versus sclerosing mesenteritis.
--- NOTE | ~2021-04-06 | XR_ITS ---
EXAMINATION: XR chest 1V portable DATE: 04/08/2021 05:44 INDICATION: Pneumonia. TECHNIQUE: A single frontal view of the chest was obtained. COMPARISON: Chest single view 04/06/2021, CT abdomen and pelvis 07/24/2017 FINDINGS: There are airspace opacities in the mid and lower lung zones, left worse than right. No ple ural effusion or pneumothorax. The heart size is normal. Surgical clips in the right upper quadrant a re likely from cholecystectomy. IMPRESSION: 1. Stable airspace opacities in the mid and lower lung zones, left worse than right, consistent with atelectasis versus pneumonia. Reviewed, dictated and finalized at location A. IMPRESSION: 1. Stable airspace opacities in the mid and lower lung zones, left worse than r ight, consistent with atelectasis versus pneumonia.
--- NOTE | ~2021-04-06 | XR_ITS ---
EXAMINATION: XR abdomen obstructive series DATE: 04/11/2021 08:35 INDICATION: Abdominal pain. TECHNIQUE: Upright and supine views of the abdomen were obtained. COMPARISON: CT abdomen 07/28/2017, chest single view 04/08/2021 FINDINGS: There are no dilated loops of bowel. No free intraperitoneal gas. Surgical clips in the rig ht upper quadrant are likely from cholecystectomy. There are airspace opacities in the lower lung zon es. IMPRESSION: 1. Normal bowel gas pattern. 2. Airspace opacities in the lower lung zones, consistent with atelectasis versus pneumonia. Reviewed, dictated and finalized at location A. IMPRESSION: 1. Normal bowel gas pattern. 2. Airspace opacities in the lower lung zones, consistent with atelectasis vers us pneumonia.
--- NOTE | ~2021-04-06 | XR_ITS ---
XR chest 1V portable DATE: 04/06/2021 18:17 INDICATION: Covid-positive. Generalized weakness. Hypertension. TECHNIQUE: Portable AP chest on 04/06/2021 at 1811 hours COMPARISON: 04/03/2021 portable AP chest FINDINGS: There are bilateral lower lung infiltrates and/atelectasis, relatively stable since 04/03/20 21. Bilateral hyperinflation, suggesting COPD. The elderly chest however considerably this appearance. No significant pleural effusion or any pulmonary vascular congestion or pneumothorax is evident. Heart size is likely within normal limits. There is aortic calcification, ectasia and tortuosity. Diffuse osteopenia. Levoscoliosis and degenerative change of the thoracic spine. There is fracture de formity of a thoracolumbar vertebra. Bilateral lateral humeral osteoarthritis. Status post cholecystectomy. IMPRESSION: Persistent prominent bibasilar infiltrates Reviewed, dictated and finalized at location A.
--- NOTE | ~2021-04-06 | US_ITS ---
EXAMINATION: US venous doppler UE DATE: 04/10/2021 13:55 INDICATION: Right upper extremity edema TECHNIQUE: Parisi scale images with and without compression and Doppler images of the right upper extre mity veins were obtained. COMPARISON: None. FINDINGS: The right internal jugular vein, subclavian vein, axillary vein, brachial veins, basilic vein, cephal ic vein, radial vein, and ulnar vein are patent. IMPRESSION: 1. Patent right upper extremity veins. No evidence of deep venous thrombosis. Reviewed, dictated and finalized at location A.
--- NOTE | ~2021-04-06 | XR_ITS ---
EXAMINATION: XR fl guid NG/feed tube insert DATE: 04/11/2021 12:32 INDICATION: Failure to thrive. Abdominal pain. TECHNIQUE: I placed a nasoenteric tube with fluoroscopic guidance. The number of images was 2. The fl uoroscopy exposure time was 1.1 minutes. COMPARISON: None. FINDINGS: The nasoenteric tube tip is in the stomach. IMPRESSION: 1. Fluoroscopy guided nasoenteric tube placement with tip in the stomach. Reviewed, dictated and finalized at location A.
--- NOTE | 2021-04-06 17:33 | ECG_ITS ---
Measurements Intervals [place] Rate: 72 P: 60 RI: 156 QRS: -38 QRSD: 94 T: 123 QT: 397 QTc: 435 Interpretive Statements SINUS RHYTHM POSSIBLE LEFT ATRIAL ENLARGEMENT LEFT AXIS DEVIATION INCOMPLETE RIGHT BUNDLE BRANCH BLOCK POSSIBLE LEFT VENTRICULAR HYPERTROPHY MINIMAL Q WAVES- HIGH LATERAL LEADS CANNOT RULE OUT SEPTAL INFARCT, AGE INDETERMINATE BORDERLINE T WAVE ABNORMALITY- ANTEROLAT/INF LEADS BASELINE ARTIFACT- I, II, III, AVR, V1, V3-V6 ABNORMAL ECG Electronically Signed On 04-06-2021 20:13:53 CDT by Issa Winkler D.O.
--- NOTE | 2021-04-06 17:39 | ED.WEAKNESS ---
HPI - Weakness General Chief complaint: Weakness Stated complaint: weak Time Seen by Provider: 04/06/21 17:16 Source: patient and RN notes reviewed Mode of arrival: wheelchair Limitations: clinical condition History of Present Illness HPI Narrative: This is an 85 year female who presents to ER for evaluation of weakness. Patient was discharged from the hospital 4 hours ago after being hospitalized for several days with new onset afib, covid pneumonia and new oxygen dependence. Triage reports patient's family reports when they got patient home she was so weak they could not wake her up. Nursing reports family had patient 0.5 L oxygen when she is to be on 3 L NC at rest and 5 L with activity. Family was confused about her medications as well. Patient does not have any complaints except weakness. Related Data Home Medications Medication Instructions Recorded Confirmed PreserVision AREDS 1 cap PO DAILY 03/27/21 03/27/21 aspirin 81 mg PO DAILY 03/27/21 03/27/21 atorvastatin 10 mg PO DAILY 03/27/21 03/27/21 donepezil 5 mg PO DAILY 03/27/21 03/27/21 ferrous sulfate [iron] 325 mg PO DAILY 03/27/21 03/27/21 potassium chloride 20 meq PO DAILY 03/27/21 03/27/21 Allergies Allergy/AdvReac Type Severity Reaction Status Date / Time Sulfa (Sulfonamide Allergy Mild ITCHING Verified 04/06/21 17:21 Antibiotics) Review of Systems Review of Systems: All systems reviewed & are unremarkable except as noted in HPI and below Constitutional: Constitutional: Reports weakness Cardiovascular: Cardiovascular: Denies chest pain Respiratory: Respiratory: Denies cough and Denies dyspnea Gastrointestinal: Gastrointestinal: Denies abdominal pain, Denies nausea and Denies vomiting Musculoskeletal: Musculoskeletal: Denies back pain Neurologic: Denies vertigo, Denies headache(s), Denies focal weakness and Denies numbness PMF Past Medical History Medical History Alzheimer's dementia Chronic kidney disease, stage 3 Baseline creatinine appears to be around 1.0. Colon polyps Diverticulosis Hypertension Iron deficiency anemia Lumbar compression fracture Surgical History Surgical History History of appendectomy History of cataract extraction History of cholecystectomy History of tubal ligation Family History Family History Other Hypertension Social History Social History (Updated 03/27/21 @ 22:09 by Radha Ruiz PA-C) Social History: Surrogate decision maker: Antonio Abdalla, son. Code status: Full code. Smoking status: Former smoker Alcohol intake: never Substance use: never Additional living arrangements comments: The patient lives with her son Antonio in [place]. Additional occupation/education comments: Retired. Spiritual care concerns: No Exam Const: General: no acute distress and ill appearing Orientation/consciousness: patient oriented x3 Neck: Neck: no lymphadenopathy Resp: Effort & Inspection: normal respiratory effort and no retractions Auscultation: clear to auscultation bilaterally Cardio: Rate: regular rate Rhythm: regular rhythm Heart sounds: no murmurs GI: GI Palp: Yes Soft to palpation, No Tenderness to palpation present (GI) and No Guarding due to palpation present (GI) Auscultation: normal bowel sounds Neuro: General: moves all extremities and CN's II-XI intact bilaterally Psych: Mental Status: mental status grossly normal Affect: normal affect Course Reevaluation(s) Reevaluation #1: Patient presented to ER for weakness. It seems family was not aware of how weak patient may be been before discharge. And it seems patient may have not been on her appropriate oxygen at home. . Date: 04/06/21 Time: 21:00 Consultations Consultation #1: I discussed case with Dr. Tellez. She reviewed pat
[2021-04-06 17:57] LABS: Alveolar/Arterial O2 Gradient 122.1 mmHg; Base Excess ABG -1.3 mEq/l (+/-2.0); Carboxyhemoglobin 0.3 % THb (0-2.0); Fractional Inspired Oxygen 36 %; HCO3 ABG 22.1 mEq/l (22.0-26.0); Methemoglobin ABG 0.2 %THb (0-1.5); Oxygen Content ABG 13.5 %vol (16.0-22.0); Oxygen Saturation ABG 97.8 % (95.0-100.0); PCO2 ABG 32.2 mmHg (35.0-45.0); PO2 ABG 97.2 mmHg (80.0-100.0); Reduced Hemoglobin 3.5 %THb (0-5.0); Total Hemoglobin 9.9 g/dL (12.0-18.0); pH ABG 7.455 (7.350-7.450)
[2021-04-06 17:58] LABS: Site Drawn RIGHT BRACHIAL
[2021-04-06 17:59] LABS: Device NASAL CANNULA
[2021-04-06 18:36] LABS: Hematocrit 32.7 % (37.0-47.0); Hemoglobin 10.1 g/dL (12.0-15.0); Mean Corpuscular HGB Conc 30.9 g/dl (32-36); Mean Corpuscular Hemoglobin 31.4 pg (26-34); Mean Corpuscular Volume 101.6 fl (80-100); Mean Platelet Volume 10.7 fl (7.4-10.4); Platelet Count Result 258 k/mm3 (150-375); Red Blood Count 3.22 M/mm3 (4.2-5.4); Red Cell Distribution Width 15.2 % (11.5-14.5); White Blood Count 26.8 K/mm3 (4.5-10.0)
[2021-04-06 19:06] LABS: Band Neutrophils Percent 1 % (0-6); Lymphocytes Absolute Manual 0.26 K/mm3 (1.1-4.5); Monocytes Absolute Manual 0.26 K/mm3 (0.1-0.90); Monocytes Percent Manual 1 % (3-9); Neutrophils Absolute Manual 26.26 K/mm3 (1.7-7.2); Neutrophils Percent Manual 97 % (46-73); Total Cells Counted 100
[2021-04-06 19:07] LABS: Anisocytosis 2+ (NORMAL); Hypochromasia 1+ (NORMAL); Platelet Estimate Adequate (Adequate)
[2021-04-06 19:09] LABS: Alanine Aminotransferase 104 U/L (4-35); Albumin Level 2.8 g/dL (3.5-5.1); Alkaline Phosphatase 76 U/L (38-126); Anion Gap 10 mmol/L (8-16); Aspartate Amino Transferase 35 U/L (14-36); Blood Urea Nitrogen 36 mg/dL (7-17); Calcium 8.2 mg/dL (8.4-10.2); Carbon Dioxide 25 mmol/L (22-30); Chloride 107 mmol/L (98-107); Estimated Glomerular Filt Rate 31; Glucose 102 mg/dL (65-110); Potassium 3.9 mmol/L (3.4-5.0); Sodium 142 mmol/L (137-145)
[2021-04-06 21:45] LABS: Add Urine Microscopic? YES; Appearance Urine Cloudy (Clear); Bilirubin Urine Negative (Negative); Blood Urine Negative (Negative); Color Urine Yellow (Yellow); Glucose Urine UA Negative (Negative); Ketones Urine Negative (Negative); Leukocyte Esterase Ur Negative LEU/UL (Negative); Mucus Urine Rare /lpf; Nitrate Urine Negative (Negative); Protein Urine 1+ mg/dL (Negative); Specific Grav Ur 1.018 (1.001-1.035); Squamous Epithelial Cell Urine Rare /hpf (Few); Urobilinogen Urine Negative mg/dL (<2.0); WBC Urine 0-3 /hpf
--- NOTE | 2021-04-06 23:50 | PM.IMHP ---
H&P: HPI History of Present Illness Date/Time: 04/06/21 23:50 Chief Complaint: FAILURE TO THRIVE Narrative: THIS IS AN 85-YEAR-OLD FEMALE WITH PAST MEDICAL HISTORY SIGNIFICANT FOR ATRIAL FIBRILLATION, DEMENTIA, IRON DEFICIENCY ANEMIA, CONGESTIVE HEART FAILURE, COVID-19 PNEUMONIA PATIENT WAS TREATED WITH REMDESIVIR FOR 5 DAYS AND WAS DISCHARGED HOME WITH DEXAMETHASONE, HYPOXIC RESPIRATORY FAILURE ON 5 L SUPPLEMENTAL OXYGEN BY NASAL CANNULA AT EXERTION AND 3 L AT REST. PATIENT WAS JUST DISCHARGED HOME TODAY AND WAS BROUGHT BACK TO THE EMERGENCY ROOM AFTER FAMILY IS CONCERNED FOR THE PATIENT BEING TOO WEAK. AT THE TIME OF MY VISIT PATIENT DID NOT HAVE ANY COMPLAINTS HOWEVER PATIENT HAS UNDERLYING DEMENTIA AND COULD NOT PROVIDE MUCH HISTORY EITHER SHE WAS UNSURE WHY SHE WAS BROUGHT BACK TO THE EMERGENCY ROOM. PRELIMINARY WORKUP WAS ESSENTIALLY NONREVEALING. Review of Systems Review of Systems: ROS unobtainable: Yes unobtainable due to mental status (DEMENTIA) [facility] Past Medical History Medical History Alzheimer's dementia Chronic kidney disease, stage 3 Baseline creatinine appears to be around 1.0. Colon polyps Diverticulosis Hypertension Iron deficiency anemia Lumbar compression fracture Surgical History Surgical History History of appendectomy History of cataract extraction History of cholecystectomy History of tubal ligation Family History Family History Other Hypertension Social History Social History (Updated 03/27/21 @ 22:09 by Radha Ruiz PA-C) Social History: Surrogate decision maker: Antonio Abdalla, krysta. Code status: Full code. Smoking status: Former smoker Alcohol intake: never Substance use: never Additional living arrangements comments: The patient lives with her son Antonio in [place]. Additional occupation/education comments: Retired. Spiritual care concerns: No Meds Home Medications and Allergies Home Medications Medication Instructions Recorded Confirmed Type PreserVision AREDS 1 cap PO DAILY 03/27/21 04/07/21 History aspirin 81 mg PO DAILY 03/27/21 04/07/21 History donepezil 5 mg PO DAILY 03/27/21 04/07/21 History ferrous sulfate [iron] 325 mg PO DAILY 03/27/21 04/07/21 History potassium chloride 20 meq PO DAILY 03/27/21 04/07/21 History amiodarone [Pacerone] 200 mg PO DAILY@0800 #30 tablet 04/05/21 04/07/21 Rx dexamethasone 6 mg PO DAILY #2 tablet 04/05/21 04/07/21 Rx guaifenesin [Mucus Relief ER] 600 mg PO Q12HR #30 tablet 04/05/21 04/07/21 Rx losartan 25 mg PO DAILY #0 tablet 04/05/21 04/07/21 Rx metoprolol tartrate 12.5 mg PO BID #30 tablet 04/05/21 04/07/21 Rx miconazole nitrate [[place] 1 applic TOPICAL Q12HR #141 g 04/05/21 04/07/21 Rx Antifungal (micon)] Allergies Allergy/AdvReac Type Severity Reaction Status Date / Time Sulfa (Sulfonamide Allergy Mild ITCHING Verified 04/06/21 17:21 Antibiotics) Vital Signs Vital Signs - 24 hr 04/06/21 17:18 04/06/21 17:19 04/06/21 17:20 Temperature 98.3 F Pulse Rate 80 73 Respiratory Rate 20 Blood Pressure 97/44 L Pulse Oximetry 94 93 04/06/21 17:22 04/06/21 18:23 04/06/21 20:01 Temperature Pulse Rate 76 72 67 Respiratory Rate 18 13 15 Blood Pressure 106/54 L 103/58 L 107/51 L Pulse Oximetry 100 100 100 04/06/21 21:53 04/06/21 22:30 04/06/21 23:01 Temperature Pulse Rate 76 70 70 Respiratory Rate 17 13 12 Blood Pressure 117/53 L 105/51 L 117/51 L Pulse Oximetry 99 100 100 Exam Narrative: PATIENT IS LAYING IN [facility] Const: General: comfortable, no acute distress, well developed, alert and awake Nutritional Appearance: cachectic Orientation/consciousness: oriented to person HENMT: Head: normal to inspection, normocephalic and atraumatic Ears: hearing grossly normal bilaterally General no
[2021-04-07] VITALS (9 sets, daily range): BP systolic 96–113; BP diastolic 44–59; PULSE 60–91; RESP 18–20; TEMP 36.2–36.6; O2SAT 95–100
--- NOTE | 2021-04-07 04:32 | ADMGEN ---
This patient, Jigar Raymond, was admitted to [facility] Surg Room 331-01 at 2345. Patient/family oriented to hospital policies and general routines including ID bracelet, bed and alarms, visiting hours, pain management, procedures, bathroom and other care routines, personal items, smoking policy, room service/diet, and visiting hours. Information on how to activate the Rapid Response Team has been discussed. Patient/Family are encouraged to report perceived risks to care and to ask questions if they do not understand what they are told or what they should do.
[2021-04-07 06:37] LABS: Basophils Percent Auto 0.2 % (0.2-1.2); Hematocrit 29.9 % (37.0-47.0); Hemoglobin 9.1 g/dL (12.0-15.0); Immature Granulocyte Absolute 0.22 K/mm3 (0.00-0.031); Immature Granulocyte Percent A 1.2 % (0-0.5); Lymphocytes Absolute Auto 0.33 K/mm3 (0.9-3.2); Lymphocytes Percent Auto 1.9 % (18.3-44.2); Mean Corpuscular HGB Conc 30.4 g/dl (32-36); Mean Corpuscular Hemoglobin 30.7 pg (26-34); Mean Platelet Volume 10.9 fl (7.4-10.4); Monocytes Absolute Auto 0.6 K/mm3 (0.1-0.6); Monocytes Percent Auto 3.5 % (2.6-8.5); Neutrophils Absolute Auto 16.5 K/mm3 (1.3-6.7); Neutrophils Percent Auto 93.2 % (45.5-73.1); Platelet Count Result 220 k/mm3 (150-375); Red Blood Count 2.96 M/mm3 (4.2-5.4); Red Cell Distribution Width 15.2 % (11.5-14.5); White Blood Count 17.7 K/mm3 (4.5-10.0)
[2021-04-07 07:34] LABS: Alanine Aminotransferase 84 U/L (4-35); Albumin Level 2.7 g/dL (3.5-5.1); Alkaline Phosphatase 70 U/L (38-126); Anion Gap 4 mmol/L (8-16); Aspartate Amino Transferase 27 U/L (14-36); Bilirubin,Total 0.8 mg/dL (0.2-1.3); Blood Urea Nitrogen 38 mg/dL (7-17); Carbon Dioxide 30 mmol/L (22-30); Chloride 106 mmol/L (98-107); Estimated Glomerular Filt Rate 29; Glucose 90 mg/dL (65-110); Potassium 3.2 mmol/L (3.4-5.0); Sodium 140 mmol/L (137-145)
[2021-04-07 07:52] LABS: Platelet Estimate Adequate (Adequate)
[2021-04-07 07:53] LABS: Acanthocytes 2+ (NORMAL); Burr Cells 1+ (NORMAL); Macrocytosis 1+ (NORMAL)
--- NOTE | 2021-04-07 11:20 | PM.IMPN ---
Progress Note: A&P Assessment and Plan (1) Lung infiltrate: Code(s): R91.8 - Other nonspecific abnormal finding of lung field Status: Acute Assessment and Plan: PATIENT HAS BEEN STARTED ON ANTIBIOTICS DUE TO NO RESOLUTION OF INFILTRATES AND EXPOSURE TO NOSOCOMIAL INFECTIONS CULTURES IN PROGRESS (2) Leukocytosis: Code(s): D72.829 - Elevated white blood cell count, unspecified Status: Acute Assessment and Plan: COULD BE IN PART RELATED TO LUNG INFILTRATE AND DEMARGINATION PATIENT IS ON P.O. STEROID WILL CONTINUE TO MONITOR (3) Pneumonia due to COVID-19 virus: Code(s): U07.1 - COVID-19; J12.82 - Pneumonia due to coronavirus disease 2019 Status: Acute Assessment and Plan: PATIENT WAS TREATED WITH REMDESIVIR X 5 DAYS AND DEXAMETHASONE (4) Chronic kidney disease, stage 3: Code(s): N18.30 - Chronic kidney disease, stage 3 unspecified Status: Acute Assessment and Plan: CONTINUE TO MONITOR BUN AND CREATININE (5) Atrial fibrillation with rapid ventricular response: Code(s): I48.91 - Unspecified atrial fibrillation Status: Acute Assessment and Plan: CONTINUE AMIODARONE NOT ANTICOAGULATED (6) Alzheimer's dementia: Code(s): G30.9 - Alzheimer's disease, unspecified; F02.80 - Dementia in other diseases classified elsewhere without behavioral disturbance Status: Acute Assessment and Plan: CONTINUE DONEPEZIL (7) Adult failure to thrive: Code(s): R62.7 - Adult failure to thrive Status: Acute Assessment and Plan: PT OT SUPPORTIVE CARE MIGHT NEED SHELTER PLACEMENT Subjective Date/time seen: 04/07/21 11:20 Patient was seen during the morning rounds today. Patient is doing fine. No overnight complaints. No shortness of breath or chest pain. No abdominal pain, nausea, no vomiting. Mood stable. Review of Systems Review of Systems: ROS unobtainable: Yes unobtainable due to mental status (DEMENTIA) Exam Narrative: PATIENT IS LAYING IN GURNEY Const: General: comfortable, no acute distress, well developed, alert and awake Nutritional Appearance: cachectic Orientation/consciousness: oriented to person HENMT: Head: normal to inspection, normocephalic and atraumatic Ears: hearing grossly normal bilaterally General nose exam: Normal external nose present Face and sinus: normal facial exam Eyes: General: appearance normal, both eyes and all related structures Alignment and Position: alignment normal Sclera: sclerae normal Pupils: Equal, round and reactive pupils present EOM: EOMs intact bilaterally Neck: Neck: normal visual inspection, full ROM, no lymphadenopathy, supple and no JVD Thyroid: thyroid normal Lymphatic: no lymphadenopathy noted Resp: Effort & Inspection: normal respiratory effort and able to speak in complete sentences Auscultation: clear to auscultation bilaterally, no crackles, no rales, no rhonchi, no wheezes and diminished lung sounds Cardio: Jugular venous distension: no JVD Rate: regular rate Rhythm: regular rhythm Heart sounds: S1 normal heart sound present and S2 normal heart sound present : General: Yes deferred Skin: Rashes: no rashes Wounds: no wounds Neuro: General: oriented to person, CN's II-XI intact bilaterally and Unable to assess gait Cranial nerves: Yes CN's II-XII intact bilaterally and Yes Equal, round and reactive pupils present Cognition (Neuro): abnormal cognition (DEMENTIA) Speech: normal speech Gait exam (Neuro): Unable to assess gait Motor exam (neuro): 5/5 motor strength present throughout Extrem: General: normal to inspection, full ROM, no joint enlargement and no pedal edema Objective Data Vital Signs Vital Signs: Vital Signs - 24 hr 04/06/21 17:18 04/06/21 17:19 04/06/21 17:20 Temperature 36.8 C Pulse Rate 80 73 Respiratory Rate 20 Blood Pressure 97/44 L Pulse Oximetry 94 93 04/06/21 17:22 04/06/21 18:23 04/06
[2021-04-07] MEDS: POTASSIUM CHLORIDE 20 MEQ PACKET (FOR LIQUID) 40 MEQ PO (12:54)
[2021-04-07] MEDS: LOSARTAN POTASSIUM 25 MG TABLET PO (12:54)
[2021-04-07] MEDS: DEXAMETHASONE 2 MG TABLET 6 MG PO (12:54)
[2021-04-07] MEDS: METOPROLOL TARTRATE 12.5 MG TABLET PO ×2 (12:54→22:00)
[2021-04-07] MEDS: OPTI-GEN TAB 1 TABLET PO (12:54)
[2021-04-07] MEDS: ASPIRIN 81 MG CHEWABLE TABLET PO (12:55)
[2021-04-07] MEDS: FERROUS SULFATE 324 MG TABLET PO (12:55)
[2021-04-07] MEDS: AMIODARONE HCL 200 MG TABLET PO (12:56)
[2021-04-07] MEDS: guaiFENesin 12 HR 600 MG TABCR PO ×2 (12:56→22:00)
[2021-04-07] MEDS: DONEPEZIL HCL 5 MG TABLET PO (12:56)
[2021-04-07] MEDS: POTASSIUM CHLORIDE 20 MEQ TABLET.ER PO (12:56)
[2021-04-08] VITALS (11 sets, daily range): BP systolic 86–124; BP diastolic 40–74; PULSE 56–88; RESP 16–18; TEMP 36–36.4; O2SAT 91–100; BMI 17.9
[2021-04-08 09:02] LABS: Anion Gap 12 mmol/L (8-16); Blood Urea Nitrogen 42 mg/dL (7-17); Calcium 8.2 mg/dL (8.4-10.2); Carbon Dioxide 19 mmol/L (22-30); Chloride 107 mmol/L (98-107); Estimated Glomerular Filt Rate 27; Glucose 94 mg/dL (65-110); Potassium 4.7 mmol/L (3.4-5.0); Sodium 138 mmol/L (137-145)
[2021-04-08] MEDS: SODIUM CHLORIDE 0.9% IV 1,000 ML 65 ML IV CONT (09:40)
[2021-04-08] MEDS: guaiFENesin 12 HR 600 MG TABCR PO ×2 (09:42→20:39)
[2021-04-08] MEDS: ASPIRIN 81 MG CHEWABLE TABLET PO (09:42)
[2021-04-08] MEDS: FERROUS SULFATE 324 MG TABLET PO (09:42)
[2021-04-08] MEDS: POTASSIUM CHLORIDE 20 MEQ TABLET.ER PO (09:43)
[2021-04-08] MEDS: OPTI-GEN TAB 1 TABLET PO (09:43)
[2021-04-08] MEDS: DONEPEZIL HCL 5 MG TABLET PO (09:43)
[2021-04-08] MEDS: DEXAMETHASONE 2 MG TABLET 6 MG PO (09:43)
[2021-04-08] MEDS: SODIUM CHLORIDE 0.9% IV 500 ML IV CONT (09:49)
[2021-04-08 09:53] LABS: Hematocrit 34.7 % (37.0-47.0); Hemoglobin 10.2 g/dL (12.0-15.0); Mean Corpuscular HGB Conc 29.4 g/dl (32-36); Mean Corpuscular Hemoglobin 31.3 pg (26-34); Mean Corpuscular Volume 106.4 fl (80-100); Mean Platelet Volume 10.8 fl (7.4-10.4); Platelet Count Result 278 k/mm3 (150-375); Red Blood Count 3.26 M/mm3 (4.2-5.4); Red Cell Distribution Width 15.9 % (11.5-14.5); White Blood Count 29.1 K/mm3 (4.5-10.0)
--- NOTE | 2021-04-08 14:35 | P.PNIM_ITS ---
Progress Note: A&P Assessment and Plan (1) Lung infiltrate: Code(s): R91.8 - Other nonspecific abnormal finding of lung field Status: Acute Assessment and Plan: CXR today showed stable airspace opacities in mid and lower lung zones, improved from prior CXR on 04/06. * She has been started on vanc and zosyn due to concerns for secondary bacterial infection. At this time, she has no evidence of acute infection. Afebrile. Blood cultures collected 04/06/21 are negative to date. Will discontinue antibiotics after cultures negative 48 hours (2) Leukocytosis: Code(s): D72.829 - Elevated white blood cell count, unspecified Status: Acute Assessment and Plan: White count 26,000 on admission, [place] [id number], but today increased to get up to 29,000 after initiation of IV steroids. * Dexamethasone has been discontinued. Will monitor CBC (3) COVID-19: Code(s): U07.1 - COVID-19 Status: Acute Assessment and Plan: Tested positive for COVID-19 on 03/27/2021. * She completed 5 days of IV remdesivir and received 8 doses of IV dexamethasone * Home O2 eval performed prior to discharge on 04/05 indicating need for 3 L O2 at rest and 5 L with exertion. Continue supplemental O2. * She has not been vaccinated COVID-19. * Isolation precautions have been discontinued per airline captain (4) Chronic kidney disease, stage 3: Code(s): N18.30 - Chronic kidney disease, stage 3 unspecified Status: Acute Assessment and Plan: Baseline creatinine peers to be 1.1-1.3. Creatinine increased up to 1.8 today. * May be related to hypotensive episode vs hypoxia. * Continue gentle IV fluids * Avoid nephrotoxic medications. Losartan on hold. * Monitor renal function closely (5) Atrial fibrillation: Code(s): I48.91 - Unspecified atrial fibrillation Status: Acute Assessment and Plan: New onset AFib at last hospitalization (03/27-04/05/21). Rate is controlled at this time. * Continue amiodarone and metoprolol. Held this a.m. due to hypotension. * Not on anticoagulation due to frailty and high risk for falls (6) Hypotension: Code(s): I95.9 - Hypotension, unspecified Status: Acute Assessment and Plan: BP declined to 86/42 today. She was asymptomatic. * Received 250 cc IV fluid bolus with improvement in BP up to 118/70. Continue maintenance IV fluids * Hold losartan * Monitor BP trends (7) Dysphagia: Code(s): R13.10 - Dysphagia, unspecified Status: Acute Assessment and Plan: Evident during last hospitalization * Mildly thickened liquids and soft/bite size diet * Aspiration precautions * Will discuss with speech therapy about completing MBS this stay. Not performed at last hospitalization due to isolation precautions. (8) Generalized weakness: Code(s): R53.1 - Weakness Status: Acute Assessment and Plan: Suspect overall physical deconditioning due to COVID-19 pneumonia and hospitalization * Appreciate PT/OT eval * Care coordination following. SNF has been arranged. Subjective Date/time seen: 04/08/21 14:35 Interval history: Date of service: 04/08/2021 Jigar Raymond is an 85-year-old female with a history of dementia, CKD, hypertension, iron deficiency anemia, and several other comorbidities who is seen in follow-up for generalized weakness. She appears somewhat confused today. She is frustrated abo
--- NOTE | 2021-04-08 14:35 | PM.IMPN ---
Progress Note: A&P Assessment and Plan (1) Lung infiltrate: Code(s): R91.8 - Other nonspecific abnormal finding of lung field Status: Acute Assessment and Plan: CXR today showed stable airspace opacities in mid and lower lung zones, improved from prior CXR on 04/06. She has been started on vanc and zosyn due to concerns for secondary bacterial infection. At this time, she has no evidence of acute infection. Afebrile. Blood cultures collected 04/06/21 are negative to date. Will discontinue antibiotics after cultures negative 48 hours (2) Leukocytosis: Code(s): D72.829 - Elevated white blood cell count, unspecified Status: Acute Assessment and Plan: White count 26,000 on admission, [place] [id number], but today increased to get up to 29,000 after initiation of IV steroids. Dexamethasone has been discontinued. Will monitor CBC (3) COVID-19: Code(s): U07.1 - COVID-19 Status: Acute Assessment and Plan: Tested positive for COVID-19 on 03/27/2021. She completed 5 days of IV remdesivir and received 8 doses of IV dexamethasone Home O2 eval performed prior to discharge on 04/05 indicating need for 3 L O2 at rest and 5 L with exertion. Continue supplemental O2. She has not been vaccinated COVID-19. Isolation precautions have been discontinued per teacher adventure education (4) Chronic kidney disease, stage 3: Code(s): N18.30 - Chronic kidney disease, stage 3 unspecified Status: Acute Assessment and Plan: Baseline creatinine peers to be 1.1-1.3. Creatinine increased up to 1.8 today. May be related to hypotensive episode vs hypoxia. Continue gentle IV fluids Avoid nephrotoxic medications. Losartan on hold. Monitor renal function closely (5) Atrial fibrillation: Code(s): I48.91 - Unspecified atrial fibrillation Status: Acute Assessment and Plan: New onset AFib at last hospitalization (03/27-04/05/21). Rate is controlled at this time. Continue amiodarone and metoprolol. Held this a.m. due to hypotension. Not on anticoagulation due to frailty and high risk for falls (6) Hypotension: Code(s): I95.9 - Hypotension, unspecified Status: Acute Assessment and Plan: BP declined to 86/42 today. She was asymptomatic. Received 250 cc IV fluid bolus with improvement in BP up to 118/70. Continue maintenance IV fluids Hold losartan Monitor BP trends (7) Dysphagia: Code(s): R13.10 - Dysphagia, unspecified Status: Acute Assessment and Plan: Evident during last hospitalization Mildly thickened liquids and soft/bite size diet Aspiration precautions Will discuss with speech therapy about completing MBS this stay. Not performed at last hospitalization due to isolation precautions. (8) Generalized weakness: Code(s): R53.1 - Weakness Status: Acute Assessment and Plan: Suspect overall physical deconditioning due to COVID-19 pneumonia and hospitalization Appreciate PT/OT eval Care coordination following. SNF has been arranged. Subjective Date/time seen: 04/08/21 14:35 Interval history: Date of service: 04/08/2021 Jigar Raymond is an 85-year-old female with a history of dementia, CKD, hypertension, iron deficiency anemia, and several other comorbidities who is seen in follow-up for generalized weakness. She appears somewhat confused today. She is frustrated about being in the hospital in repeatedly states that she just wants to go home. Discussed with her nurse who reports she has been eating poorly. I asked her what she had for breakfast and she told me pizza. She ate about a quarter of her breakfast today. She denies shortness of breath or chest pain. She endorses cough. Review of Systems Review of Systems: All systems reviewed & are unremarkable except as noted in HPI and below Exam Narrative: Ms. Raymond
[2021-04-09] VITALS (9 sets, daily range): BP systolic 85–115; BP diastolic 44–58; PULSE 52–111; RESP 16–21; TEMP 36.1–36.6; O2SAT 93–98
[2021-04-09] MEDS: SODIUM CHLORIDE 0.9% IV 1,000 ML 65 ML IV CONT (04:20)
[2021-04-09 06:42] LABS: Hematocrit 31.1 % (37.0-47.0); Hemoglobin 9.2 g/dL (12.0-15.0); Mean Corpuscular HGB Conc 29.6 g/dl (32-36); Mean Corpuscular Hemoglobin 31.5 pg (26-34); Mean Corpuscular Volume 106.5 fl (80-100); Mean Platelet Volume 10.7 fl (7.4-10.4); Platelet Count Result 202 k/mm3 (150-375); Red Blood Count 2.92 M/mm3 (4.2-5.4); Red Cell Distribution Width 15.9 % (11.5-14.5); White Blood Count 19.2 K/mm3 (4.5-10.0)
[2021-04-09 06:54] LABS: Anion Gap 6 mmol/L (8-16); Blood Urea Nitrogen 37 mg/dL (7-17); Carbon Dioxide 21 mmol/L (22-30); Chloride 113 mmol/L (98-107); Estimated Glomerular Filt Rate 29; Glucose 90 mg/dL (65-110); Potassium 4.3 mmol/L (3.4-5.0); Sodium 140 mmol/L (137-145)
[2021-04-09] MEDS: ASPIRIN 81 MG CHEWABLE TABLET PO (09:39)
[2021-04-09] MEDS: FERROUS SULFATE 324 MG TABLET PO (09:39)
[2021-04-09] MEDS: DONEPEZIL HCL 5 MG TABLET PO (09:39)
[2021-04-09] MEDS: guaiFENesin 12 HR 600 MG TABCR PO (09:39)
[2021-04-09] MEDS: AMIODARONE HCL 200 MG TABLET PO (09:40)
[2021-04-09] MEDS: ENOXAPARIN 30 MG/0.3 ML SYRINGE SUB-Q (09:41)
[2021-04-09] MEDS: POTASSIUM CHLORIDE 20 MEQ TABLET.ER PO (09:41)
[2021-04-09] MEDS: OPTI-GEN TAB 1 TABLET PO (09:41)
--- NOTE | 2021-04-09 13:08 | P.PNIM_ITS ---
Progress Note: A&P Assessment and Plan (1) Positive blood culture: Code(s): R78.81 - Bacteremia Status: Acute Assessment and Plan: Blood culture with growth of budding yeast in 1/2 bottles. * Will repeat blood cultures * Initiate micafungin 100 mg daily following collection of repeat blood cultures * Consult to infectious disease. Input is appreciated * Await final blood culture results (2) Lung infiltrate: Code(s): R91.8 - Other nonspecific abnormal finding of lung field Status: Acute Assessment and Plan: CXR shows opacities in the mid and lower lung zones * She was started on IV abx for secondary bacterial pneumonia on admission. Discontinued 04/08 as no signs/symptoms to suggest acute infection. However, today she is septic and therefore will resume treatment for secondary bacterial pneumonia. * Begin IV Cefepime and vancomycin * Monitor respiratory status closely. Consider chest CT if no improvement (3) Sepsis: Code(s): A41.9 - Sepsis, unspecified organism Status: Acute Assessment and Plan: Patient is septic with tachycardia, leukocytosis, and hypotension. Lactic 1.0. May be related to pneumonia. * 250 cc fluid bolus and continue maintenance fluids * Restart antibiotics. Initiate IV Cefepime and Vancomycin. * Monitor vital signs, intake and output, and labs. * Repeat blood cultures pending (4) COVID-19: Code(s): U07.1 - COVID-19 Status: Acute Assessment and Plan: Tested positive for COVID-19 on 03/27/2021. * She completed 5 days of IV remdesivir and received 8 doses of IV dexamethasone during prior admission (03/27-04/05/21) * Home O2 eval performed prior to discharge on 04/05 indicating need for 3 L O2 at rest and 5 L with exertion. Continue supplemental O2. She is requiring 2 L per NC today. Wean to goal (02% or above). No need for repeat home O2 eval this hospital stay as she will be discharging to SNF and O2 will be titrated there. * She has not been vaccinated COVID-19. * Isolation precautions have been discontinued per layout mechanic (5) Lethargy: Code(s): R53.83 - Other fatigue Status: Acute Assessment and Plan: She was poorly arousable this morning and more lethargic today. She still is able to answer questions appropriately. * Obtain ABG * Plan as above for treatment of possible fungemia * Encourage increased PO intake. Dietary supplements. * Monitor mental status closely (6) Leukocytosis: Code(s): D72.829 - Elevated white blood cell count, unspecified Status: Acute Assessment and Plan: White count 26,000 on admission, may have been reactive. Improved but then increased again after initiation of IV steroids. May also be related to infectious process * Dexamethasone discontinued on 04/08. WBC trending down today * Continue to monitor CBC (7) Chronic kidney disease, stage 3: Code(s): N18.30 - Chronic kidney disease, stage 3 unspecified Status: Acute Assessment and Plan: Acute on chronic. Baseline creatinine peers to be 1.1-1.3. Creatinine 1.7 today. * May have been related to hypotensive episode vs hypoxia. * Continue gentle IV fluids at 40 ml/hr * Avoid nephrotoxic medications. Losartan on hold. * Monitor renal function closely (8) Atrial fibrillation: Code(s): I48.91 - Unspecified atrial fibrillation Status: Acute Assessment and Plan: New onset AFib at last hospitalization (03/27-04/05/21). Ra
--- NOTE | 2021-04-09 13:08 | PM.IMPN ---
Progress Note: A&P Assessment and Plan (1) Positive blood culture: Code(s): R78.81 - Bacteremia Status: Acute Assessment and Plan: Blood culture with growth of budding yeast in 1/2 bottles. Will repeat blood cultures Initiate micafungin 100 mg daily following collection of repeat blood cultures Consult to infectious disease. Input is appreciated Await final blood culture results (2) Lung infiltrate: Code(s): R91.8 - Other nonspecific abnormal finding of lung field Status: Acute Assessment and Plan: CXR shows opacities in the mid and lower lung zones She was started on IV abx for secondary bacterial pneumonia on admission. Discontinued 04/08 as no signs/symptoms to suggest acute infection. However, today she is septic and therefore will resume treatment for secondary bacterial pneumonia. Begin IV Cefepime and vancomycin Monitor respiratory status closely. Consider chest CT if no improvement (3) Sepsis: Code(s): A41.9 - Sepsis, unspecified organism Status: Acute Assessment and Plan: Patient is septic with tachycardia, leukocytosis, and hypotension. Lactic 1.0. May be related to pneumonia. 250 cc fluid bolus and continue maintenance fluids Restart antibiotics. Initiate IV Cefepime and Vancomycin. Monitor vital signs, intake and output, and labs. Repeat blood cultures pending (4) COVID-19: Code(s): U07.1 - COVID-19 Status: Acute Assessment and Plan: Tested positive for COVID-19 on 03/27/2021. She completed 5 days of IV remdesivir and received 8 doses of IV dexamethasone during prior admission (03/27-04/05/21) Home O2 eval performed prior to discharge on 04/05 indicating need for 3 L O2 at rest and 5 L with exertion. Continue supplemental O2. She is requiring 2 L per NC today. Wean to goal (02% or above). No need for repeat home O2 eval this hospital stay as she will be discharging to SNF and O2 will be titrated there. She has not been vaccinated COVID-19. Isolation precautions have been discontinued per rivet heater (5) Lethargy: Code(s): R53.83 - Other fatigue Status: Acute Assessment and Plan: She was poorly arousable this morning and more lethargic today. She still is able to answer questions appropriately. Obtain ABG Plan as above for treatment of possible fungemia Encourage increased PO intake. Dietary supplements. Monitor mental status closely (6) Leukocytosis: Code(s): D72.829 - Elevated white blood cell count, unspecified Status: Acute Assessment and Plan: White count 26,000 on admission, may have been reactive. Improved but then increased again after initiation of IV steroids. May also be related to infectious process Dexamethasone discontinued on 04/08. WBC trending down today Continue to monitor CBC (7) Chronic kidney disease, stage 3: Code(s): N18.30 - Chronic kidney disease, stage 3 unspecified Status: Acute Assessment and Plan: Acute on chronic. Baseline creatinine peers to be 1.1-1.3. Creatinine 1.7 today. May have been related to hypotensive episode vs hypoxia. Continue gentle IV fluids at 40 ml/hr Avoid nephrotoxic medications. Losartan on hold. Monitor renal function closely (8) Atrial fibrillation: Code(s): I48.91 - Unspecified atrial fibrillation Status: Acute Assessment and Plan: New onset AFib at last hospitalization (03/27-04/05/21). Rate controlled at this time. Continue amiodarone and metoprolol. Metoprolol held this a.m. due to bradycardia Not on anticoagulation due to frailty and high risk for falls (9) Hypotension: Code(s): I95.9 - Hypotension, unspecified Status: Acute Assessment and Plan: Improving. BP declined to 86/42 on 04/08. She remained asymptomatic. She had improvement in BP but low again this afternoon at 88/52. 250 cc IV fluid bolus, then
[2021-04-09 14:40] LABS: Alveolar/Arterial O2 Gradient 99.3 mmHg; Base Excess ABG -2.1 mEq/l (+/-2.0); Fractional Inspired Oxygen 28 %; HCO3 ABG 21.5 mEq/l (22.0-26.0); Oxygen Content ABG 11.6 %vol (16.0-22.0); Oxygen Saturation ABG 93.1 % (95.0-100.0); Oxyhemoglobin 90.4 % THb (90.0-100.0); PCO2 ABG 32.1 mmHg (35.0-45.0); PO2 ABG 62.5 mmHg (80.0-100.0); PO2 FiO2 Ratio Arterial Blood 2.23 %; Total Hemoglobin 9.1 g/dL (12.0-18.0); pH ABG 7.444 (7.350-7.450)
[2021-04-09 14:41] LABS: Device NASAL CANNULA; Site Drawn RIGHT BRACHIAL
[2021-04-09] MEDS: SODIUM CHLORIDE 0.9% IV 250 ML IV CONT (15:11)
[2021-04-09] MEDS: MICAFUNGIN SODIUM 100 MG in SODIUM CHLORIDE 0.9% IV 100 ML IVPB (20:17)
[2021-04-09] MEDS: SODIUM CHLORIDE 0.9% IV 1,000 ML 40 ML IV CONT (20:17)
--- NOTE | 2021-04-09 21:45 | PC.NURSE ---
DESTINEE painting called to notifiy that the patient is more confused then when this RN previously had her. patients peripheral limbs are cold to the touch, we have been unable to get any blood from her for labs. notified that we were able to get a rainbow on the patient but unsure of our ability to get more in the morning. UNDERWEAR TRIMMER said that she would put in orders for labs. Blood pressure has not improved with the bolus given to her earlier in the night. bp is currently 85/44, she is tachycardic at 102.
[2021-04-09 21:52] LABS: Hematocrit 25.5 % (37.0-47.0); Hemoglobin 7.6 g/dL (12.0-15.0); Mean Corpuscular HGB Conc 29.8 g/dl (32-36); Mean Corpuscular Hemoglobin 31.7 pg (26-34); Mean Corpuscular Volume 106.3 fl (80-100); Mean Platelet Volume 10.8 fl (7.4-10.4); Platelet Count Result 217 k/mm3 (150-375); White Blood Count 28.5 K/mm3 (4.5-10.0)
[2021-04-09 22:02] LABS: INR 1.2; Prothrombin Time 15.1 Seconds (11.1-14.7)
[2021-04-09 22:03] LABS: Partial Thromboplastin Time 26.9 SECONDS (22.3-36.8)
[2021-04-09 22:04] LABS: Vancomycin Trough 11.7 ug/mL (10.0-20.0)
[2021-04-09 22:05] LABS: Lactic Acid Reflex 2.6 mmol/L (0.7-2.1)
[2021-04-09 22:09] LABS: Alanine Aminotransferase 36 U/L (4-35); Albumin Level 2.4 g/dL (3.5-5.1); Alkaline Phosphatase 73 U/L (38-126); Anion Gap 7 mmol/L (8-16); Aspartate Amino Transferase 20 U/L (14-36); Bilirubin,Total 0.4 mg/dL (0.2-1.3); Blood Urea Nitrogen 53 mg/dL (7-17); Calcium 8.1 mg/dL (8.4-10.2); Carbon Dioxide 24 mmol/L (22-30); Chloride 114 mmol/L (98-107); Estimated Glomerular Filt Rate 21; Glucose 135 mg/dL (65-110); Potassium 4.5 mmol/L (3.4-5.0); Sodium 145 mmol/L (137-145)
[2021-04-09] MEDS: ALBUMIN HUMAN 25% 12.5 GM/50ML 50 ML IVPB (22:12)
[2021-04-10] VITALS (11 sets, daily range): BP systolic 100–145; BP diastolic 38–63; PULSE 89–100; RESP 16–24; TEMP 35.9–36.6; O2SAT 93–99
--- NOTE | 2021-04-10 00:36 | PC.NURSE ---
Hopen notified that the patient did not respond to the albumin. Current bp is 84/47. Doctor stated to give a 500ml bolus over two hours. Call with updated bp
[2021-04-10 00:49] LABS: Reflex Lactic Acid Yes or No Add Lactic
[2021-04-10] MEDS: SODIUM CHLORIDE 0.9% IV 500 ML 250 ML IV CONT (01:10)
[2021-04-10] MEDS: SODIUM CHLORIDE 0.9% IV 1,000 ML 40 ML IV CONT (06:09)
[2021-04-10 07:04] LABS: Hematocrit 21.3 % (37.0-47.0); Mean Corpuscular HGB Conc 30.5 g/dl (32-36); Mean Corpuscular Hemoglobin 31.6 pg (26-34); Mean Corpuscular Volume 103.4 fl (80-100); Mean Platelet Volume 10.8 fl (7.4-10.4); Platelet Count Result 188 k/mm3 (150-375); Red Blood Count 2.06 M/mm3 (4.2-5.4); Red Cell Distribution Width 16.1 % (11.5-14.5); White Blood Count 20.2 K/mm3 (4.5-10.0)
[2021-04-10 07:18] LABS: Anion Gap 5 mmol/L (8-16); Blood Urea Nitrogen 58 mg/dL (7-17); Calcium 8.4 mg/dL (8.4-10.2); Carbon Dioxide 25 mmol/L (22-30); Chloride 116 mmol/L (98-107); Estimated Glomerular Filt Rate 21; Glucose 108 mg/dL (65-110); Potassium 4.3 mmol/L (3.4-5.0); Sodium 146 mmol/L (137-145)
[2021-04-10 07:58] LABS: Hemoglobin 6.5 g/dL (12.0-15.0)
--- NOTE | 2021-04-10 10:36 | P.PNIM_ITS ---
Progress Note: A&P Assessment and Plan (1) Sepsis: Code(s): A41.9 - Sepsis, unspecified organism Status: Acute Assessment and Plan: Patient is septic with tachycardia, leukocytosis, and hypotension. Lactic 1.0. Suspectedd source of infection is pneumonia vs fungemia * Continue IV Cefepime and Vancomycin. Continue micafungin * Monitor vital signs, intake and output, and labs. * Repeat blood cultures pending * Appreciate ID consultation (2) Positive blood culture: Code(s): R78.81 - Bacteremia Status: Acute Assessment and Plan: Blood culture with growth of budding yeast in 1/2 bottles. * Continue micafungin 100 mg daily (started 04/09) * Repeat blood cultures collected on 04/09 * Appreciate infectious disease consultation * Await final blood culture results (3) Secondary bacterial pneumonia: Code(s): J15.9 - Unspecified bacterial pneumonia Status: Acute Assessment and Plan: CXR shows opacities in the mid and lower lung zones. Suspect superimposed bacterial pneumonia following COVID-19. * Continue IV Cefepime and vancomycin * Monitor respiratory status closely. * Supportive care to include bronchodilators, expectorants, antipyretics, and incentive spirometery if patient able to use * Supplemental O2 as needed. She is maintaining adequate oxygenation (4) Hypotension: Code(s): I95.9 - Hypotension, unspecified Status: Acute Assessment and Plan: Blood pressure has been fluctuant. She has remained asymptomatic * Yesterday BP decline to 85/44, requiring 500 cc IV fluid bolus * BP stabilized following with last BP 106/48. * Continue maintenance fluids at 50 mL/hour * Monitor blood pressure trends closely. Vital signs q4h. Monitor intake and output. * Losartan on hold. (5) Anemia: Code(s): D64.9 - Anemia, unspecified Status: Acute Assessment and Plan: Hemoglobin had been remained stable around 9.5 with decline yesterday to 7.6. She then received IV fluid bolus and hemoglobin has declined further. 6.5 today. * RN noted report of dark stool last night * 1 unit PRBC has been ordered, awaiting vascular access to transfuse * Repeat H&H 1 hour following transfusion * Stool occult blood has been ordered. GI consult based on results * Initiate Protonix IV bid (6) COVID-19: Code(s): U07.1 - COVID-19 Status: Acute Assessment and Plan: Tested positive for COVID-19 on 03/27/2021. * She completed 5 days of IV remdesivir and received 8 doses of IV dexamethasone during prior admission (03/27-04/05/21) * Home O2 eval performed prior to discharge on 04/05 indicating need for 3 L O2 at rest and 5 L with exertion. Continue supplemental O2. She is requiring 2 L per NC here. Wean to goal (92% or above). No need for repeat home O2 eval this hospital stay as she will be discharging to SNF and O2 will be titrated there. * She has not been vaccinated COVID-19. * Isolation precautions have been discontinued per highway maintenance technician (7) Lethargy: Code(s): R53.83 - Other fatigue Status: Acute Assessment and Plan: 04/09 she was difficult to arouse and has had increasing lethargy. * Likely due to sepsis. Hopeful improvement with treatment of above. * ABG reviewed with mild hypoxemia. O2 sats are stable today * Encourage increased PO intake. Dietary supplements. * Monitor mental status closely (8) Leukocytosis: Code(s): D72.829 - Elevated white blood cell count, u
--- NOTE | 2021-04-10 10:36 | PM.IMPN ---
Progress Note: A&P Assessment and Plan (1) Sepsis: Code(s): A41.9 - Sepsis, unspecified organism Status: Acute Assessment and Plan: Patient is septic with tachycardia, leukocytosis, and hypotension. Lactic 1.0. Suspectedd source of infection is pneumonia vs fungemia Continue IV Cefepime and Vancomycin. Continue micafungin Monitor vital signs, intake and output, and labs. Repeat blood cultures pending Appreciate ID consultation (2) Positive blood culture: Code(s): R78.81 - Bacteremia Status: Acute Assessment and Plan: Blood culture with growth of budding yeast in 1/2 bottles. Continue micafungin 100 mg daily (started 04/09) Repeat blood cultures collected on 04/09 Appreciate infectious disease consultation Await final blood culture results (3) Secondary bacterial pneumonia: Code(s): J15.9 - Unspecified bacterial pneumonia Status: Acute Assessment and Plan: CXR shows opacities in the mid and lower lung zones. Suspect superimposed bacterial pneumonia following COVID-19. Continue IV Cefepime and vancomycin Monitor respiratory status closely. Supportive care to include bronchodilators, expectorants, antipyretics, and incentive spirometery if patient able to use Supplemental O2 as needed. She is maintaining adequate oxygenation (4) Hypotension: Code(s): I95.9 - Hypotension, unspecified Status: Acute Assessment and Plan: Blood pressure has been fluctuant. She has remained asymptomatic Yesterday BP decline to 85/44, requiring 500 cc IV fluid bolus BP stabilized following with last BP 106/48. Continue maintenance fluids at 50 mL/hour Monitor blood pressure trends closely. Vital signs q4h. Monitor intake and output. Losartan on hold. (5) Anemia: Code(s): D64.9 - Anemia, unspecified Status: Acute Assessment and Plan: Hemoglobin had been remained stable around 9.5 with decline yesterday to 7.6. She then received IV fluid bolus and hemoglobin has declined further. 6.5 today. RN noted report of dark stool last night 1 unit PRBC has been ordered, awaiting vascular access to transfuse Repeat H&H 1 hour following transfusion Stool occult blood has been ordered. GI consult based on results Initiate Protonix IV bid (6) COVID-19: Code(s): U07.1 - COVID-19 Status: Acute Assessment and Plan: Tested positive for COVID-19 on 03/27/2021. She completed 5 days of IV remdesivir and received 8 doses of IV dexamethasone during prior admission (03/27-04/05/21) Home O2 eval performed prior to discharge on 04/05 indicating need for 3 L O2 at rest and 5 L with exertion. Continue supplemental O2. She is requiring 2 L per NC here. Wean to goal (92% or above). No need for repeat home O2 eval this hospital stay as she will be discharging to SNF and O2 will be titrated there. She has not been vaccinated COVID-19. Isolation precautions have been discontinued per collection team lead (7) Lethargy: Code(s): R53.83 - Other fatigue Status: Acute Assessment and Plan: 04/09 she was difficult to arouse and has had increasing lethargy. Likely due to sepsis. Hopeful improvement with treatment of above. ABG reviewed with mild hypoxemia. O2 sats are stable today Encourage increased PO intake. Dietary supplements. Monitor mental status closely (8) Leukocytosis: Code(s): D72.829 - Elevated white blood cell count, unspecified Status: Acute Assessment and Plan: WBC has been fluctuant. Suspect related to combination of reactive process, IV steroids, and infectious process. Overall trending down with WBC 20,000 today Continue to monitor CBC (9) Acute on chronic kidney failure: Code(s): N17.9 - Acute kidney failure, unspecified; N18.9 - Chronic kidney disease, unspecified Status: Acute Assessment and Plan: Baseline creatinine ap
[2021-04-10 11:32] LABS: IFOB Positive Control Positive; Immunochemical Fecal Occult Bl Positive (N)
[2021-04-10] MEDS: LIDOCAINE HCL 1% LOCAL INJ 2 ML AMPUL 5 ML INFILTRATE (12:20)
--- NOTE | 2021-04-10 12:50 | WPDINFPN2 ---
Progress Note: A&P Assessment and Plan (1) Septicemia due to fungus: Code(s): A41.89 - Other specified sepsis; B49 - Unspecified mycosis Status: Acute Assessment and Plan: 1. Fungal + blood culture with infection, source unknown 2. Recent viral pneumonia due to SARS CoV2. Unvaccinated. 3. Dementia REC Micafungin #2. Ok midline. Await further micro info. Subjective Date/time seen: 04/10/21 12:50 Objective Data Vital Signs Vital Signs: Vital Signs - 24 hr 04/09/21 14:00 04/09/21 20:00 04/09/21 21:57 Temperature 36.3 C L 36.1 C L Pulse Rate 111 H 102 H Respiratory Rate 20 21 H Blood Pressure 88/52 L 85/44 L Pulse Oximetry 94 93 93 04/10/21 03:14 04/10/21 06:00 04/10/21 09:00 Temperature 36.1 C L 36.6 C Pulse Rate 89 95 Respiratory Rate 22 H 20 Blood Pressure 101/48 L 106/48 L Pulse Oximetry 98 96 96 Intake/Output Intake/Output: Intake & Output 04/07/21 04/08/21 04/09/21 04/10/21 23:59 23:59 23:59 23:59 Intake Total 793 678 4244 1850 Balance 838 646 5404 1850 Meds/Results Medications: Active Medications Generic Name Dose Route Start Last Admin Trade Name Freq PRN Reason Stop Dose Admin Amiodarone HCl 200 mg 04/07/21 08:00 04/09/21 09:40 Amiodarone Hcl 200 Mg Tablet PO 200 mg DAILY@0800 [facility] Administration Aspirin 81 mg 04/07/21 08:00 04/09/21 09:39 Aspirin 81 Mg Chewable Tablet PO 81 mg DAILY@0800 [facility] Administration Donepezil HCl 5 mg 04/07/21 09:00 04/09/21 09:39 Donepezil Hcl 5 Mg Tablet PO 5 mg DAILY [facility] Administration Enoxaparin Sodium 30 mg 04/09/21 09:00 04/10/21 11:48 Enoxaparin 30 Mg/0.3 Ml Syringe SUB-Q Not Given DAILY [facility] Ferrous Sulfate 324 mg 04/07/21 11:30 04/09/21 09:39 Ferrous Sulfate 324 Mg Tablet PO 324 mg DAILY@0800 [facility] Administration Guaifenesin 600 mg 04/07/21 11:30 04/09/21 21:27 Guaifenesin 12 Hr 600 Mg Tabcr PO Not Given Q12HR [facility] Sodium Chloride 1,000 mls @ 50 mls/hr 04/08/21 09:00 04/10/21 06:09 Normal Saline Iv IV CONT 40 mls/hr .Q20H [facility] Administration Micafungin Sodium 100 mg/ 100 mls @ 100 mls/hr 04/09/21 14:00 04/09/21 21:17 Sodium Chloride IVPB Infused DAILY@1400 [facility] Infusion Sodium Chloride 250 mls @ 30 mls/hr 04/10/21 08:08 Normal Saline Iv IV CONT 04/10/21 16:27 .Q8H20M STA Metoprolol Tartrate 12.5 mg 04/07/21 11:30 04/09/21 21:27 Metoprolol Tartrate 12.5 Mg Tablet PO Not Given Q12HR [facility] Miconazole Nitrate 1 applic 04/07/21 11:30 04/10/21 10:17 Miconazole 2% Antifungal Ointment 56 Gm TOPICAL 1 applic Q12HR [facility] Administration Multivitamins/Minerals 1 tablet 04/07/21 09:00 04/09/21 09:41 Opti-Gen Tab PO 05/08/21 08:59 1 tablet DAILY [facility] Administration Pantoprazole Sodium 40 mg 04/10/21 11:40 Pantoprazole Sodium Iv 40 Mg Vial IV PUSH Q12HR [facility] Potassium Chloride 20 meq 04/07/21 09:00 04/09/21 09:41 Potassium Chloride 20 Meq Tablet.Er PO 20 meq DAILY [facility] Administration Radiology Results: ITS Impressions Chest X-Ray 04/08/21 06:24 IMPRESSION: 1. Stable airspace opacities in the mid and lower lung zones, left worse than right, consistent with atelectasis versus pneumonia. Labs Labs: Laboratory Results - last 24 hr 04/09/21 04/09/21 04/09/21 14:31 21:40 21:40 WBC 28.5 H RBC 2.40 L Hgb 7.6 L Hct 25.5 L MCV 106.3 H MCH 31.7 MCHC 29.8 L RDW 16.0 H Plt Count 217 MPV 10.8 H PT 15.1 H INR 1.2 APTT 26.9 Puncture Site Right brachial ABG pH 7.444 ABG pCO2 32.1 L ABG pO2 62.5 L ABG PO2/FiO2 Ratio 2.23 ABG HCO3 21.5 L ABG O2 Saturation 93.1 L ABG O2 Content 11.6 L ABG Base Excess -2.1 A-a Gradient 99.3 Oxyhemoglobin 90.4 Total Hemoglobin 9.1 L O2 Delivery Device Nasal cannula O2 Liters/Min 2.0 FiO2 28 Sodium Potassium Chloride Carbon Dioxide Anion G
[2021-04-10] MEDS: PANTOPRAZOLE SODIUM IV 40 MG VIAL IV PUSH ×2 (14:13→20:46)
[2021-04-10] MEDS: MICAFUNGIN SODIUM 100 MG in SODIUM CHLORIDE 0.9% IV 100 ML IVPB (14:13)
--- NOTE | 2021-04-10 14:37 | PCOTNOTE ---
Attempted to see patient this pm, however patient difficult to arouse. RN present stated patient will be getting blood and advised to see patient tomorrow.
[2021-04-10] MEDS: SODIUM CHLORIDE 0.9% IV 250 ML 30 ML IV CONT (14:39)
[2021-04-10] MEDS: SALINE LOCK FLUSH 10 ML IV PUSH ×2 (14:39→20:47)
--- NOTE | 2021-04-10 16:31 | WPDGICN ---
Assessment and Plan Assessment and plan (1) Anemia: Code(s): D64.9 - Anemia, unspecified Status: Acute Assessment and Plan: Patient has a macrocytic anemia. Slight decline in hemoglobin noted today. She also was identified to have occult blood in stools. Is somewhat unclear whether anemia is totally related to blood loss. Will transfuse today. Continue monitor closely. At this time patient would not tolerate invasive testing. Supportive care strongly encourage. (2) Occult blood in stools: Code(s): R19.5 - Other fecal abnormalities Status: Acute Assessment and Plan: Occult blood in stool is noted. Continue monitor for active blood loss. (3) Sepsis: Code(s): A41.9 - Sepsis, unspecified organism Status: Acute Assessment and Plan: Patient has ongoing sepsis. Currently monitor by ID service. [place] to be a fungal septicemia. This likely is contributing to her overall decline. (4) Secondary bacterial pneumonia: Code(s): J15.9 - Unspecified bacterial pneumonia Status: Acute (5) Atrial fibrillation: Code(s): I48.91 - Unspecified atrial fibrillation Status: Acute (6) COVID-19: Code(s): U07.1 - COVID-19 Status: Acute (7) Adult failure to thrive: Code(s): R62.7 - Adult failure to thrive Status: Acute Assessment and Plan: Patient is declining has failure to thrive. Not able to maintain oral intake her ambulate this time. Suggest we consider Dobbhoff tube feedings. (8) Chronic kidney disease, stage 3: Code(s): N18.30 - Chronic kidney disease, stage 3 unspecified Status: Acute GI Consult Note Consult date/time: 04/10/21 16:31 HPI: Jigar Raymond is a 85 year old female I am asked to see for anemia and occult blood in stool. Patient unable to give a history as she is currently unresponsive supine in the bed. Patient hospitalized with pneumonia and sepsis she was recently discharged but returned and readmitted after only several hours because of failure to thrive. Since her readmission the hospital she has declined apparently was walking and ambulating 3 or 4 days ago now is bed ridden poorly responsive unable to talk. She has been on antibiotics for fungal septicemia. She is chronically anemic but a slight decline in hemoglobin was identified today. This prompted stool Hemoccult which was found to be positive. Patient has had diarrhea stools which began after antibiotics were started. Her past medical history is significant for atrial fibrillation chronic kidney disease. She is recovering from recent COVID infection. Is known to have else I am was dementia and resides at a assisted. Review of Systems Review of Systems: ROS unobtainable: Yes unobtainable due to mental status PMFSH Past Medical History Medical History Alzheimer's dementia Chronic kidney disease, stage 3 Baseline creatinine appears to be around 1.0. Colon polyps Diverticulosis Hypertension Iron deficiency anemia Lumbar compression fracture Surgical History Surgical History History of appendectomy History of cataract extraction History of cholecystectomy History of tubal ligation Family History Family History Other Hypertension Social History Social History (Updated 03/27/21 @ 22:09 by Radha Ruiz PA-C) Social History: Surrogate decision maker: Antonio Abdalla, krysta. Code status: Full code. Smoking status: Never smoker Alcohol intake: never Substance use: never Additional living arrangements comments: The patient lives with her son Antonio in [place]. Additional occupation/education comments: Retired. Spiritual care concerns: No Meds Home Medications and Allergies Home Medications Medication Ins
--- NOTE | 2021-04-10 16:52 | CONS_ITS ---
DATE OF CONSULTATION: 04/10/2021 REASON FOR CONSULTATION: Positive fungal blood culture. HISTORY OF PRESENT ILLNESS: 85-year-old female who cannot provide any history. She has dementia. She was admitted to the hospital on March 27 with one week of generalized weakness and anorexia, shortness of breath. She has been unvaccinated against coronavirus, reason unknown. She has had prior to admission testing for coronavirus which reportedly was nonreactive, but here was reactive. She was given remdesivir and dexamethasone. She apparently had some improvement and was discharged on the on home O2 including dexamethasone to complete a 10-day course. She returned to the emergency room 4 hours later, as she had decreased level of consciousness. Home health nurse noted that oxygen was being given at 0.5 L instead of the prescribed 3 to 5 L. Due to concern over a bacterial superinfection of the lungs, she was given vancomycin, cefepime. Blood cultures were positive yesterday and micafungin was added. ALLERGIES: SULFA CAUSED ITCHING. PRESENT MEDICATIONS: See above. Dexamethasone completed. She is on topical miconazole. HABITS: No tobacco. No alcohol. PAST MEDICAL HISTORY: In addition to the above, BTL, cholecystectomy, cataracts, appendectomy, lumbar compression fracture. Iron deficiency anemia, hypertension, colon polyps, stage 3 renal insufficiency, and Alzheimer disease. REVIEW OF SYSTEMS: 14-point review attempted, not obtainable from the patient. She is nonverbal. FAMILY HISTORY: Not pertinent to her present illness. SOCIAL HISTORY: Lives with her son. Listed as retired. PHYSICAL EXAMINATION: GENERAL: Elderly female who appears her actual age. No respiratory distress. Appears ill. VITAL SIGNS: Since readmission, she has been afebrile. 95, 20, 106/48, 96% on 2 L. SKIN: Ecchymoses. She has subcutaneous edema of the skin, most marked over the upper extremities about the elbows. She has an area of crusted ecchymosis over the right mid sosa. No decubitus ulcers. CHEST: She has no indwelling vascular devices. NODES: No cervical adenopathy. NECK: Without mass, tenderness, or meningismus. EENT: She would not cooperate for exam of the mouth, but external inspection is normal. Pupils are miotic, not reactive. There is no petechiae or injection. LUNGS: Mildly diminished breath sounds throughout. Percussion is normal. Breath sounds are vesicular. CARDIAC: Regular rate and rhythm. No murmurs or gallops. Unable to palpate dorsalis pedis. Radial pulses are 1+. ABDOMEN: She has a longitudinal upper abdomen surgical scar which is well healed, but not in the typical location for gallbladder, appendix, or gynecologic surgery. She has no masses, ascites, tenderness, or organomegaly. EXTREMITIES: Some muscle wasting. No clubbing, cyanosis, or edema. LABORATORY DATA: Blood cultures , 07/21 sets budding yeast and blood cultures repeated yesterday, no growth after a very short incubation. White blood cell count normal on admission, 03/27/2021, and has been high since 04/02/2021, 11.9 on the and on re-arrival 26.8, today 20.2; hemoglobin 6.5, which is down 4 points since April 08; platelets are 188. Blood gases 7.44, 32, 63, 22, 93%. She has hypernatremia, chloride 116, BUN 58, creatinine 2.2. Creatinine on the was 1.6. Estimated GFR 21. Transaminases minimally high and declining. Albumin 2.4, roughly the same. Urinalysis 6 to 10 red cells, otherwise normal. Hepatitis panel 04/07, nonreactive. RADIOLOGY: I personally reviewed her chest x-ray. She has bilateral interstitial infiltrates medial lower lung lynn, more marked on the right than the left and there appears to be a component of atelectasis as well. I revie
[2021-04-10] MEDS: SALINE LOCK FLUSH 20 ML IV PUSH (18:48)
[2021-04-10 18:51] LABS: Hematocrit 25.8 % (37.0-47.0); Hemoglobin 8.2 g/dL (12.0-15.0)
[2021-04-10 22:02] LABS: Hematocrit 24.9 % (37.0-47.0); Hemoglobin 7.8 g/dL (12.0-15.0)
[2021-04-11] VITALS (12 sets, daily range): BP systolic 94–157; BP diastolic 52–84; PULSE 84–113; RESP 12–24; TEMP 36.2–37; O2SAT 93–98
[2021-04-11] MEDS: SODIUM CHLORIDE 0.9% IV 1,000 ML 50 ML IV CONT (03:04)
[2021-04-11] MEDS: SALINE LOCK FLUSH 10 ML IV PUSH ×3 (06:40→20:28)
[2021-04-11 07:10] LABS: Basophils Percent Auto 0.2 % (0.2-1.2); Eosinophils Percent Auto 0.1 % (0-4.4); Hematocrit 25.8 % (37.0-47.0); Hemoglobin 7.8 g/dL (12.0-15.0); Immature Granulocyte Percent A 2.1 % (0-0.5); Lymphocytes Absolute Auto 0.33 K/mm3 (0.9-3.2); Lymphocytes Percent Auto 2.3 % (18.3-44.2); Mean Corpuscular HGB Conc 30.2 g/dl (32-36); Mean Corpuscular Hemoglobin 30.4 pg (26-34); Mean Corpuscular Volume 100.4 fl (80-100); Mean Platelet Volume 10.9 fl (7.4-10.4); Monocytes Absolute Auto 0.5 K/mm3 (0.1-0.6); Monocytes Percent Auto 3.3 % (2.6-8.5); Neutrophils Absolute Auto 13.2 K/mm3 (1.3-6.7); Platelet Count Result 138 k/mm3 (150-375); Red Blood Count 2.57 M/mm3 (4.2-5.4); Red Cell Distribution Width 17.8 % (11.5-14.5); White Blood Count 14.4 K/mm3 (4.5-10.0)
[2021-04-11 07:35] LABS: Anion Gap 4 mmol/L (8-16); Blood Urea Nitrogen 54 mg/dL (7-17); Calcium 7.8 mg/dL (8.4-10.2); Carbon Dioxide 20 mmol/L (22-30); Chloride 123 mmol/L (98-107); Estimated Glomerular Filt Rate 24; Glucose 84 mg/dL (65-110); Potassium 4.2 mmol/L (3.4-5.0); Sodium 147 mmol/L (137-145)
--- NOTE | 2021-04-11 07:58 | WPDGIPROGNO ---
Progress Note: A&P Assessment and Plan (1) Occult blood in stools: Code(s): R19.5 - Other fecal abnormalities Status: Acute Assessment and Plan: No active bleeding identified. Occult blood evident in his stools. Continue to monitor closely for evidence of any bleeding. (2) Secondary bacterial pneumonia: Code(s): J15.9 - Unspecified bacterial pneumonia Status: Acute (3) Sepsis: Code(s): A41.9 - Sepsis, unspecified organism Status: Acute (4) Lethargy: Code(s): R53.83 - Other fatigue Status: Acute Assessment and Plan: Patient apparently has become increasingly lethargic. Poorly responsive the last 2 days I have seen her. I would consider Dobbhoff tube for nutrition if family allows. Will defer this to the primary care service. (5) Atrial fibrillation: Code(s): I48.91 - Unspecified atrial fibrillation Status: Acute (6) Alzheimer's dementia: Code(s): G30.9 - Alzheimer's disease, unspecified; F02.80 - Dementia in other diseases classified elsewhere without behavioral disturbance Status: Acute (7) Anemia: Code(s): D64.9 - Anemia, unspecified Status: Acute Assessment and Plan: Anemia noted but hemoglobin stable. Will continue to monitor conservatively. She may benefit from PPI therapy empirically given the risk for stress gastritis. (8) Abdominal pain: Code(s): R10.9 - Unspecified abdominal pain Status: Acute Assessment and Plan: Patient appears to grimace on palpation of the abdomen. Will obtain obstructive series today. Cannot exclude some intra-abdominal process. Difficult to assess because of her failing mental status. She appears to have a poor overall prognos Subjective Date/time seen: 04/11/21 07:58 Patient remains poorly responsive today. Nonverbal. Unable to maintain oral intake. Review of Systems Review of Systems: ROS unobtainable: Yes unobtainable due to medical condition Exam Narrative: Physical exam reveals patient be at bedrest poorly responsive. HEENT exam reveals no icterus. Lungs are reveal a few rhonchi. Abdomen bowel sounds are present soft. But she appears to when some palpation suggesting tenderness. Extremities without clubbing or edema. Objective Data Vital Signs Vital Signs: Vital Signs - 24 hr 04/10/21 09:00 04/10/21 12:00 04/10/21 15:06 Temperature 96.6 F L 97.7 F Pulse Rate 93 100 Respiratory Rate 24 H 18 Blood Pressure 103/63 107/38 L Pulse Oximetry 96 97 97 04/10/21 15:22 04/10/21 16:00 04/10/21 16:22 Temperature 97.9 F 97.9 F 97.9 F Pulse Rate 96 97 94 Respiratory Rate 18 16 16 Blood Pressure 100/47 L 117/50 L 110/55 L Pulse Oximetry 95 98 99 04/10/21 17:06 04/10/21 17:22 04/10/21 20:00 Temperature 97.9 F 96.9 F L Pulse Rate 93 96 Respiratory Rate 16 22 H Blood Pressure 144/59 H 145/55 H Pulse Oximetry 95 99 93 04/11/21 00:00 04/11/21 04:00 Temperature 97.9 F 97.3 F L Pulse Rate 95 103 H Respiratory Rate 22 H 20 Blood Pressure 154/69 H 157/75 H Pulse Oximetry 93 96 Intake/Output Intake/Output: Intake & Output 04/08/21 04/09/21 04/10/21 04/11/21 23:59 23:59 23:59 23:59 Intake Total 730 3130 2290 1000 Balance 730 3130 2290 1000 Meds/Results Medications: Active Medications Generic Name Dose Route Start Last Admin Trade Name Dmq PRN Reason Stop Dose Admin Amiodarone HCl 200 mg 04/07/21 08:00 04/10/21 15:20 Amiodarone Hcl 200 Mg Tablet PO Not Given DAILY@0800 [facility] Aspirin 81 mg 04/07/21 08:00 04/10/21 15:21 Aspirin 81 Mg Chewable Tablet PO Not Given DAILY@0800 [facility] Donepezil HCl 5 mg 04/07/21 09:00 04/10/21 15:21 Donepezil Hcl 5 Mg Tablet PO Not Given DAILY [facility] Enoxaparin Sodium 30 mg 04/09/21 09:00 04/10/21 11:48 Enoxaparin 30 Mg/0.3 Ml Syringe SUB-Q Not Given DAILY [facility] Ferrous Sulfate 324 mg 04/07/21 11:30 04/10/21 15:21 Ferrous Sulf
[2021-04-11 08:01] LABS: Anisocytosis 2+ (NORMAL); Crenated RBC 1+ (NORMAL); Macrocytosis 1+ (NORMAL); Microcytosis 1+ (NORMAL)
--- NOTE | 2021-04-11 08:40 | PC.NURSE ---
Called Martha BALDWIN and notified her of patient's lethargy and inability to take oral meds. Patient will not attempt to drink from a straw. Unable to safely take oral feedings or meds. Will await further orders.
[2021-04-11] MEDS: ENOXAPARIN 30 MG/0.3 ML SYRINGE SUB-Q (08:42)
[2021-04-11] MEDS: PANTOPRAZOLE SODIUM IV 40 MG VIAL IV PUSH ×2 (08:44→20:25)
--- NOTE | 2021-04-11 09:11 | PCOTNOTE ---
Attempted to see patient this am, however patient unable to participate in functional OT at this time. Pt more awake, however unable to respond. Per RN, feeding tube ordered and patient unable to safely take medicine this morning. Will check back later.
--- NOTE | 2021-04-11 11:30 | PCNFU ---
Nutrition Follow-Up Complete: Inadequate Oral intake as related to Dementia/COVID 19 as evidenced by poor po intake reported. Goal: Adequate Intake of at least 75% of meals/supplements. Patient has limited progress towards goal. We will continue current goal. Pt current nutrition is Soft/bite sized,Level 6, Mildly thick, Level 2, Heart Healthy. Last recorded weight is 40.3 kg, no new weight to report. Bowel Motility:+BM reported 04/11 Labs Reviewed:Na 147,GFR 24,BUN 54,Cr 2.0,Hgb 7.8,Hct 25.8 Meds Noted:No meds given at this time, lethargic. Additional Notes: Nutrition follow up, Patient is lethargic, non verbal. New orders for Dobbhoff tube feedings to start of Nepro. Tube feeding starting at 20 ml/hr increase q 2 hours to 40 ml/hr over 22 hours. Tube feedings will providing patient with 1584 kcals/72 gms protein/640 ml water. Recommend: free water flush increased to 50 ml q 4 hours. Monitoring: RD will monitor every Thursday and Thursday.
--- NOTE | 2021-04-11 11:44 | P.PNIM_ITS ---
Progress Note: A&P Assessment and Plan (1) Sepsis: Code(s): A41.9 - Sepsis, unspecified organism Status: Acute Assessment and Plan: Patient is septic with tachycardia, leukocytosis, and hypotension. Lactic 1.0. Secondary to fungemia with source of infection unclear. She has remained afebrile. * Continue micafungin * Monitor vital signs, intake and output, and labs. * Repeat blood cultures pending * Appreciate ID consultation * Secondary bacterial pneumonia considered given recent COVID infection with new onset sepsis, however IV antibiotics discontinued per ID recommendations. Sepsis felt to be more likely due to fungal etiology (2) Fungemia: Code(s): B49 - Unspecified mycosis Status: Acute Assessment and Plan: Blood culture with growth of budding yeast in 1/2 bottles. Source of infection unknown. * Continue micafungin 100 mg daily (started 04/09) * Repeat blood cultures collected on 04/09 * Will obtain urine culture * Appreciate infectious disease consultation * Await final blood culture results (3) Hypotension: Code(s): I95.9 - Hypotension, unspecified Status: Acute Assessment and Plan: Blood pressure has been fluctuant, improved today with last BP 157/75. She has remained asymptomatic * BP has been stable today * Monitor blood pressure trends closely. Vital signs q4h. Monitor intake and output. * Losartan on hold. (4) Anemia: Code(s): D64.9 - Anemia, unspecified Status: Acute Assessment and Plan: Hemoglobin had been stable around 9.5 with sharp decline to 6.5 on 04/10. * Transfused 1 unit PRBC on 04/10 * H&H improved today. Repeat this afternoon to ensure remaining stable. * Continue close monitoring (5) COVID-19: Code(s): U07.1 - COVID-19 Status: Acute Assessment and Plan: Tested positive for COVID-19 on 03/27/2021. * She completed 5 days of IV remdesivir and received 8 doses of IV dexamethasone during prior admission (03/27-04/05/21) * Home O2 eval performed prior to discharge on 04/05 indicating need for 3 L O2 at rest and 5 L with exertion. * Continue supplemental O2. She is requiring 2 L per NC here. * She has not been vaccinated COVID-19. * Isolation precautions have been discontinued per house carpenter (6) Lethargy: Code(s): R53.83 - Other fatigue Status: Acute Assessment and Plan: 04/09 she became difficult to arouse and has had increasing lethargy. * Likely due to sepsis. Hopeful improvement with treatment of above. * ABG reviewed with mild hypoxemia. O2 sats are stable today * She is not tolerating p.o. intake. Will proceed with NG tube for feedings and medication administration. Continue IV fluids (0.45 NS at 60 mL/hour), decrease by 20 mL/hour every 2 hours and continue with free water flushes per NG tube. * Monitor mental status closely (7) Leukocytosis: Code(s): D72.829 - Elevated white blood cell count, unspecified Status: Acute Assessment and Plan: WBC has been fluctuant. Suspect related to combination of reactive process, IV steroids, and infectious process. * Overall trending down with WBC 14,000 today * Continue to monitor CBC (8) Acute on chronic kidney failure: Code(s): N17.9 - Acute kidney failure, unspecified; N18.9 - Chronic kidney disease, unspecified Status: Acute Assessment and Plan: Baseline creatinine appears to be 1.1-1.3. Creatinine increased up to 2.
--- NOTE | 2021-04-11 11:44 | PM.IMPN ---
Progress Note: A&P Assessment and Plan (1) Sepsis: Code(s): A41.9 - Sepsis, unspecified organism Status: Acute Assessment and Plan: Patient is septic with tachycardia, leukocytosis, and hypotension. Lactic 1.0. Secondary to fungemia with source of infection unclear. She has remained afebrile. Continue micafungin Monitor vital signs, intake and output, and labs. Repeat blood cultures pending Appreciate ID consultation Secondary bacterial pneumonia considered given recent COVID infection with new onset sepsis, however IV antibiotics discontinued per ID recommendations. Sepsis felt to be more likely due to fungal etiology (2) Fungemia: Code(s): B49 - Unspecified mycosis Status: Acute Assessment and Plan: Blood culture with growth of budding yeast in 1/2 bottles. Source of infection unknown. Continue micafungin 100 mg daily (started 04/09) Repeat blood cultures collected on 04/09 Will obtain urine culture Appreciate infectious disease consultation Await final blood culture results (3) Hypotension: Code(s): I95.9 - Hypotension, unspecified Status: Acute Assessment and Plan: Blood pressure has been fluctuant, improved today with last BP 157/75. She has remained asymptomatic BP has been stable today Monitor blood pressure trends closely. Vital signs q4h. Monitor intake and output. Losartan on hold. (4) Anemia: Code(s): D64.9 - Anemia, unspecified Status: Acute Assessment and Plan: Hemoglobin had been stable around 9.5 with sharp decline to 6.5 on 04/10. Transfused 1 unit PRBC on 04/10 H&H improved today. Repeat this afternoon to ensure remaining stable. Continue close monitoring (5) COVID-19: Code(s): U07.1 - COVID-19 Status: Acute Assessment and Plan: Tested positive for COVID-19 on 03/27/2021. She completed 5 days of IV remdesivir and received 8 doses of IV dexamethasone during prior admission (03/27-04/05/21) Home O2 eval performed prior to discharge on 04/05 indicating need for 3 L O2 at rest and 5 L with exertion. Continue supplemental O2. She is requiring 2 L per NC here. She has not been vaccinated COVID-19. Isolation precautions have been discontinued per hydraulic boom operator (6) Lethargy: Code(s): R53.83 - Other fatigue Status: Acute Assessment and Plan: 04/09 she became difficult to arouse and has had increasing lethargy. Likely due to sepsis. Hopeful improvement with treatment of above. ABG reviewed with mild hypoxemia. O2 sats are stable today She is not tolerating p.o. intake. Will proceed with NG tube for feedings and medication administration. Continue IV fluids (0.45 NS at 60 mL/hour), decrease by 20 mL/hour every 2 hours and continue with free water flushes per NG tube. Monitor mental status closely (7) Leukocytosis: Code(s): D72.829 - Elevated white blood cell count, unspecified Status: Acute Assessment and Plan: WBC has been fluctuant. Suspect related to combination of reactive process, IV steroids, and infectious process. Overall trending down with WBC 14,000 today Continue to monitor CBC (8) Acute on chronic kidney failure: Code(s): N17.9 - Acute kidney failure, unspecified; N18.9 - Chronic kidney disease, unspecified Status: Acute Assessment and Plan: Baseline creatinine appears to be 1.1-1.3. Creatinine increased up to 2.2 Suspect rising creatinine is related to hypotensive episodes. Slowly improving with creatinine 2.0 today. Continue with IV fluids. Monitor blood pressure trends and ensure remaining stable Monitor intake and output No evidence of urinary retention Consider renal ultrasound if further increase in creatinine levels (9) Atrial fibrillation: Code(s): I48.91 - Unspecified atrial fibrillation Status: Acute Assessment and Plan: New onset AF
--- NOTE | 2021-04-11 12:00 | PC.NURSE ---
Attempted to place NG tube twice - both times, tube coiled in back of patient's throat. Spoke with Martha BALDWIN regarding same and orders received for tube to be placed under fluroscopy.
--- NOTE | 2021-04-11 12:33 | PC.NURSE ---
Tube placed successfully under fluroscopy by radiologist.
[2021-04-11] MEDS: SODIUM CHLORIDE 0.45% 1,000 ML 50 ML IV CONT (12:40)
--- NOTE | 2021-04-11 14:45 | PC.NURSE ---
All po meds held this morning due to lethargy. Patient now has feeding tube and po meds will be given via tube.
[2021-04-11] MEDS: AMIODARONE HCL 200 MG TABLET PO (14:47)
[2021-04-11] MEDS: DONEPEZIL HCL 5 MG TABLET PO (14:47)
[2021-04-11] MEDS: ASPIRIN 81 MG CHEWABLE TABLET PO (14:47)
[2021-04-11] MEDS: METOPROLOL TARTRATE 12.5 MG TABLET PO (14:48)
--- NOTE | 2021-04-11 14:51 | PCOTNOTE ---
Attempted to see patient this pm, however patient unavailable with nursing staff at this time.
[2021-04-11] MEDS: MICAFUNGIN SODIUM 100 MG in SODIUM CHLORIDE 0.9% IV 100 ML IVPB (14:59)
--- NOTE | 2021-04-11 15:10 | PC.NURSE ---
25 cc dark brown stomach contents noted as residual when checking residual after 2 hours of tube feedings. Called and left voice message for Martha BALDWIN regarding same.
[2021-04-11 15:29] LABS: Hematocrit 21.2 % (37.0-47.0)
[2021-04-11 15:47] LABS: Hemoglobin 6.8 g/dL (12.0-15.0)
--- NOTE | 2021-04-11 15:51 | PCPTNOTE ---
Attempted to see patient for PT, however per RN patient is not appropriate for therapy at this time.
--- NOTE | 2021-04-11 17:00 | PC.NURSE ---
Called Dr. Bowie and notified him of patient having large black tarry stool and dark brown contents in feeding tube when aspirated. Also notified him of critical H/H. Orders received.
[2021-04-11] MEDS: SODIUM CHLORIDE 0.9% IV 250 ML 30 ML IV CONT (17:16)
[2021-04-11 18:06] LABS: pH Gastric Fluid 2 (1-8)
[2021-04-11 18:07] LABS: Gastric Negative Control Negative; Gastric Positive Control Positive; Occult Blood Gastric Fluid Positive
[2021-04-11] MEDS: METOPROLOL TARTRATE 12.5 MG TABLET FEED TUBE (20:25)
[2021-04-11 21:53] LABS: Hematocrit 24.5 % (37.0-47.0); Hemoglobin 7.9 g/dL (12.0-15.0)
[2021-04-12] VITALS (10 sets, daily range): BP systolic 76–102; BP diastolic 32–58; PULSE 76–96; RESP 16–22; TEMP 36.3–36.6; O2SAT 92–99
[2021-04-12] MEDS: SODIUM CHLORIDE 0.9% IV 250 ML 30 ML IV CONT (04:02)
[2021-04-12] MEDS: SODIUM CHLORIDE 0.9% IV 500 ML 999 ML IV CONT (04:02)
[2021-04-12] MEDS: SALINE LOCK FLUSH 10 ML IV PUSH ×2 (04:47→13:40)
[2021-04-12] MEDS: SODIUM CHLORIDE 0.45% 1,000 ML 50 ML IV CONT (04:47)
[2021-04-12 05:03] LABS: Basophils Absolute Auto 0.1 K/mm3 (0.0-0.1); Basophils Percent Auto 0.3 % (0.2-1.2); Eosinophils Percent Auto 0.1 % (0-4.4); Hematocrit 28.2 % (37.0-47.0); Hemoglobin 9.4 g/dL (12.0-15.0); Immature Granulocyte Absolute 0.66 K/mm3 (0.00-0.031); Immature Granulocyte Percent A 3.6 % (0-0.5); Lymphocytes Absolute Auto 0.36 K/mm3 (0.9-3.2); Lymphocytes Percent Auto 1.9 % (18.3-44.2); Mean Corpuscular HGB Conc 33.3 g/dl (32-36); Mean Corpuscular Hemoglobin 31.1 pg (26-34); Mean Corpuscular Volume 93.4 fl (80-100); Mean Platelet Volume 11.2 fl (7.4-10.4); Monocytes Absolute Auto 0.6 K/mm3 (0.1-0.6); Monocytes Percent Auto 3.5 % (2.6-8.5); Neutrophils Absolute Auto 16.8 K/mm3 (1.3-6.7); Neutrophils Percent Auto 90.6 % (45.5-73.1); Nucleated Red Blood Cells Absolute Auto 0.1 K/mm3 (0.0-0.012); Nucleated Red Blood Cells Perc 0.4 % (0.0-0.2); Platelet Count Result 119 k/mm3 (150-375); Red Blood Count 3.02 M/mm3 (4.2-5.4); Red Cell Distribution Width 15.9 % (11.5-14.5); White Blood Count 18.5 K/mm3 (4.5-10.0)
[2021-04-12 05:32] LABS: Anion Gap 6 mmol/L (8-16); Blood Urea Nitrogen 95 mg/dL (7-17); Calcium 7.4 mg/dL (8.4-10.2); Carbon Dioxide 19 mmol/L (22-30); Chloride 124 mmol/L (98-107); Estimated Glomerular Filt Rate 18; Glucose 101 mg/dL (65-110); Potassium 4.3 mmol/L (3.4-5.0); Sodium 149 mmol/L (137-145)
--- NOTE | 2021-04-12 07:29 | PCOTNOTE ---
Patient to be discharged from skilled OT due to decline in medical status and inability to participate with therapy at this time.
--- NOTE | 2021-04-12 07:32 | WPDGIPROGNO ---
Progress Note: A&P Assessment and Plan (1) UGI bleed: Code(s): K92.2 - Gastrointestinal hemorrhage, unspecified Status: Acute Assessment and Plan: Patient with upper GI bleeding manifested by coffee-ground return and black melenic stools. Hemoglobin much improved after transfusion. Plan to treat with PPI therapy continue monitor hemoglobin. Patient still too frail to undergo EGD. Will treat empirically for ulcer disease. EGD only if active bleeding develops. Try to advance diet today if possible. (2) Anemia: Code(s): D64.9 - Anemia, unspecified Status: Acute Assessment and Plan: Anemia improved with transfusion. Continue monitor closely. (3) Acute on chronic kidney failure: Code(s): N17.9 - Acute kidney failure, unspecified; N18.9 - Chronic kidney disease, unspecified Status: Acute (4) Sepsis: Code(s): A41.9 - Sepsis, unspecified organism Status: Acute (5) Secondary bacterial pneumonia: Code(s): J15.9 - Unspecified bacterial pneumonia Status: Acute (6) Atrial fibrillation: Code(s): I48.91 - Unspecified atrial fibrillation Status: Acute Assessment and Plan: atrial fibrillation known. Hold anticoagulation given risk for bleeding. Subjective Date/time seen: 04/12/21 07:32 Patient more alert this morning. Dobbhoff tube placed last night and aspiration to check for residual revealed coffee-ground returns. Patient subsequently transfused. Placed on pantoprazole. She is more alert today with increasing hemoglobin. Still remains frail. Asking for dietary intake. Review of Systems Review of Systems: All systems reviewed & are unremarkable except as noted in HPI and below Exam Narrative: Physical exam reveals patient to be more alert. HEENT exam reveals no icterus. She is somewhat cachectic. Lungs reveal a few rhonchi. Heart without murmur. Abdomen bowel sounds present soft much less tender today no organomegaly evident. Stool Hemoccult positive with black melenic stools. Extremities without clubbing cyanosis or edema. Objective Data Vital Signs Vital Signs: Vital Signs - 24 hr 04/11/21 14:00 04/11/21 14:47 04/11/21 14:48 Temperature 98.6 F Pulse Rate 113 H 104 H 104 H Respiratory Rate 24 H Blood Pressure 96/62 L Pulse Oximetry 97 04/11/21 18:00 04/11/21 18:15 04/11/21 19:15 Temperature 97.2 F L 98.1 F 97.2 F L Pulse Rate 88 89 88 Respiratory Rate 24 H 24 H 24 H Blood Pressure 96/62 L 94/58 L 98/58 L Pulse Oximetry 98 98 97 04/11/21 20:00 04/11/21 20:15 04/11/21 20:25 Temperature 97.3 F L 97.2 F L Pulse Rate 84 88 88 Respiratory Rate 18 14 Blood Pressure 108/52 L 98/84 L Pulse Oximetry 97 97 04/11/21 20:42 04/12/21 00:00 04/12/21 02:06 Temperature 97.6 F 97.9 F 97.8 F Pulse Rate 87 76 96 Respiratory Rate 12 18 22 H Blood Pressure 98/78 L 102/56 L 78/32 L Pulse Oximetry 97 95 94 04/12/21 02:22 04/12/21 03:22 04/12/21 04:00 Temperature 97.6 F 97.7 F 97.3 F L Pulse Rate 96 82 82 Respiratory Rate 20 20 18 Blood Pressure 76/46 L 92/58 L 97/58 L Pulse Oximetry 98 99 99 04/12/21 04:44 Temperature 97.7 F Pulse Rate 83 Respiratory Rate 18 Blood Pressure 94/54 L Pulse Oximetry 98 Intake/Output Intake/Output: Intake & Output 04/09/21 04/10/21 04/11/21 04/12/21 23:59 23:59 23:59 23:59 Intake Total 3130 2290 2050 1350 Output Total 350 Balance 3130 2290 1700 1350 Meds/Results Medications: Active Medications Generic Name Dose Route Start Last Admin Trade Name Freq PRN Reason Stop Dose Admin Amiodarone HCl 200 mg 04/12/21 08:00 Amiodarone Hcl 200 Mg Tablet FEED TUBE DAILY@0800 TE[facility] Aspirin 81 mg 04/12/21 08:00 Aspirin 81 Mg Chewable Tablet FEED TUBE DAILY@0800 TE[facility] Donepezil HCl 5 mg 04/12/21 09:00 Donepezil Hcl 5 Mg Tablet FEED TUBE DAILY TELLO Ferrous Sulfate 324 mg 04/12/21 08:00 Ferrous Sulfate Liquid
[2021-04-12] MEDS: DONEPEZIL HCL 5 MG TABLET FEED TUBE (09:39)
[2021-04-12] MEDS: AMIODARONE HCL 200 MG TABLET FEED TUBE (09:39)
[2021-04-12] MEDS: PANTOPRAZOLE 40 MG TABLET PO (09:41)
--- NOTE | 2021-04-12 10:29 | P.PNIM_ITS ---
Progress Note: A&P Assessment and Plan (1) Sepsis: Code(s): A41.9 - Sepsis, unspecified organism Status: Acute Assessment and Plan: Patient is septic with tachycardia, leukocytosis, and hypotension. Lactic 1.0. Secondary to fungemia with source of infection unclear. Doubt secondary bacterial pneumonia due to her recent COVID infection. She remains afebrile. * Continue micafungin * Monitor vital signs, intake and output, and labs. * Repeat blood cultures NGTD * Appreciate ID consultation (2) Fungemia: Code(s): B49 - Unspecified mycosis Status: Acute Assessment and Plan: Blood culture with growth of Chitra glabrata in 1/2 bottles sensitive to micafu ngin. Source of infection unknown. * Continue micafungin 100 mg daily (started 04/09) * Repeat blood cultures collected on 04/09 and are NGTD * Urine culture pending * Appreciate infectious disease consultation * Await final blood culture results * Check CT A/P CT A/P showing ascites but no adenopathy to suggest ovarian CA. Old calcified mass noted at the root of the SB. Ascited related to fluid overload? No Lasix due to soft BP. May need Albumin and Lasix. Renal consult. Change to NS. Consider midodrine (3) Hypotension: Code(s): I95.9 - Hypotension, unspecified Status: Acute Assessment and Plan: Blood pressure has been fluctuant but mostly low-normal. She has remained asymptomatic * BP was low overnight to 76/46 * Monitor blood pressure trends closely. Vital signs q4h. Monitor intake and output. * Losartan on hold. Hold metoprolol (4) Anemia: Code(s): D64.9 - Anemia, unspecified Status: Acute Assessment and Plan: Hemoglobin had been stable around 9.5 with sharp decline to 6.5 on 04/10. * Transfused 1 unit PRBC on 04/10 * H&H improved but dropped again to 6.8 yesterday and received a 2nd unit PRBC * Hgb climbed to 9.4 now * Concern for GI bleed. Continue Protonix. GI on board * Continue close monitoring; ASA remains on hold (5) COVID-19: Code(s): U07.1 - COVID-19 Status: Acute Assessment and Plan: Tested positive for COVID-19 on 03/27/2021. * She completed 5 days of IV remdesivir and received 8 doses of IV dexamethasone during prior admission (03/27-04/06/21) * Home O2 eval performed prior to discharge on 04/05 indicating need for 3 L O2 at rest and 5 L with exertion. * Continue supplemental O2 and down to 2L now. Wean O2 as toelrated * CXR 04/08 showing stable airspace disease * She has not been vaccinated COVID-19. 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 * Likely due to sepsis. * She appears improved today. * She was not tolerating p.o. intake so NG tube placed. NG tube removed today. * Monitor mental status closely (7) Leukocytosis: Code(s): D72.829 - Elevated white blood cell count, unspecified Status: Acute Assessment and Plan: WBC has been fluctuant. Suspect related to combination of reactive process, IV steroids, and infectious process. * WBC worse today to 18K. * Could be stress response * Continue to monitor CBC (8) Acute on chronic kidney failure: Code(s): N17.9 - Acute kidney failure, unspecified; N18.9 - Chronic kidney disease, unspecified Status: Acute
--- NOTE | 2021-04-12 10:29 | PM.IMPN ---
Progress Note: A&P Assessment and Plan (1) Sepsis: Code(s): A41.9 - Sepsis, unspecified organism Status: Acute Assessment and Plan: Patient is septic with tachycardia, leukocytosis, and hypotension. Lactic 1.0. Secondary to fungemia with source of infection unclear. Doubt secondary bacterial pneumonia due to her recent COVID infection. She remains afebrile. Continue micafungin Monitor vital signs, intake and output, and labs. Repeat blood cultures NGTD Appreciate ID consultation (2) Fungemia: Code(s): B49 - Unspecified mycosis Status: Acute Assessment and Plan: Blood culture with growth of Chitra glabrata in 1/2 bottles sensitive to micafungin. Source of infection unknown. Continue micafungin 100 mg daily (started 04/09) Repeat blood cultures collected on 04/09 and are NGTD Urine culture pending Appreciate infectious disease consultation Await final blood culture results Check CT A/P CT A/P showing ascites but no adenopathy to suggest ovarian CA. Old calcified mass noted at the root of the SB. Ascited related to fluid overload? No Lasix due to soft BP. May need Albumin and Lasix. Renal consult. Change to NS. Consider midodrine (3) Hypotension: Code(s): I95.9 - Hypotension, unspecified Status: Acute Assessment and Plan: Blood pressure has been fluctuant but mostly low-normal. She has remained asymptomatic BP was low overnight to 76/46 Monitor blood pressure trends closely. Vital signs q4h. Monitor intake and output. Losartan on hold. Hold metoprolol (4) Anemia: Code(s): D64.9 - Anemia, unspecified Status: Acute Assessment and Plan: Hemoglobin had been stable around 9.5 with sharp decline to 6.5 on 04/10. Transfused 1 unit PRBC on 04/10 H&H improved but dropped again to 6.8 yesterday and received a 2nd unit PRBC Hgb climbed to 9.4 now Concern for GI bleed. Continue Protonix. GI on board Continue close monitoring; ASA remains on hold (5) COVID-19: Code(s): U07.1 - COVID-19 Status: Acute Assessment and Plan: Tested positive for COVID-19 on 03/27/2021. She completed 5 days of IV remdesivir and received 8 doses of IV dexamethasone during prior admission (03/27-04/06/21) Home O2 eval performed prior to discharge on 04/05 indicating need for 3 L O2 at rest and 5 L with exertion. Continue supplemental O2 and down to 2L now. Wean O2 as toelrated CXR 04/08 showing stable airspace disease She has not been vaccinated COVID-19. Isolation precautions have been discontinued per [facility] [employer] lead (6) Lethargy: Code(s): R53.83 - Other fatigue Status: Acute Assessment and Plan: 04/09 she became difficult to arouse and has had increasing lethargy. Likely due to sepsis. She appears improved today. She was not tolerating p.o. intake so NG tube placed. NG tube removed today. Monitor mental status closely (7) Leukocytosis: Code(s): D72.829 - Elevated white blood cell count, unspecified Status: Acute Assessment and Plan: WBC has been fluctuant. Suspect related to combination of reactive process, IV steroids, and infectious process. WBC worse today to 18K. Could be stress response Continue to monitor CBC (8) Acute on chronic kidney failure: Code(s): N17.9 - Acute kidney failure, unspecified; N18.9 - Chronic kidney disease, unspecified Status: Acute Assessment and Plan: Baseline creatinine appears to be 1.1-1.3. Creatinine increased up to 2.5 today Suspect rising creatinine is related to hypotensive episodes; BP dropped to 76/46 overnight KRISTIE also could be related to the Micafungin She is edematous but Na higher despite IV fluids. Echo 03/30/21 with EF 65-70% and Grade I diastolic dysfunction and no pulm HTN Monitor intake and output No evidence of urinary retention but place Starr for strict I/Os (9) Atrial
--- NOTE | 2021-04-12 11:01 | PCNFU ---
Nutrition Follow-Up Complete: Inadequate Oral intake as related to Dementia/COVID 19 as evidenced by poor po intake reported. Goal: Adequate Intake of at least 75% of meals/supplements. Patient has limited progress towards goal. We will continue current goal. Pt current nutrition is Full liquids with Ensure Enlive TID. Last recorded weight is 40.3 kg, no new weight to report. Recommend new weight. Bowel Motility:+BM reported 04/12 Labs Reviewed:BUN 95, Na 149,Hct 28.2,Hgb 9.4, Cr 2.5 Meds Noted:Lopressor, Aricept. Additional Notes: Nutrition follow up. Patient tube feedings have stopped, possible GI bleed. Patient more alert today. Breakfast today-cream of wheat and sips of ensure. Patient would prefer chocolate flavor, diet office aware. PO intake encouraged. RD will monitor every 3 days.
[2021-04-12] MEDS: SALINE LOCK FLUSH 20 ML IV PUSH (13:20)
[2021-04-12 13:21] LABS: Albumin Level 2.2 g/dL (3.5-5.1); Anion Gap 7 mmol/L (8-16); Blood Urea Nitrogen 99 mg/dL (7-17); Calcium 7.6 mg/dL (8.4-10.2); Carbon Dioxide 19 mmol/L (22-30); Chloride 122 mmol/L (98-107); Estimated Glomerular Filt Rate 16; Glucose 114 mg/dL (65-110); Phosphorus 2.5 mg/dL (2.5-4.5); Potassium 4.2 mmol/L (3.4-5.0); Sodium 148 mmol/L (137-145)
[2021-04-12] MEDS: MICAFUNGIN SODIUM 100 MG in SODIUM CHLORIDE 0.9% IV 100 ML IVPB (13:38)
[2021-04-12] MEDS: SODIUM CHLORIDE 0.9% IV 1,000 ML 70 ML IV CONT (14:02)
--- NOTE | 2021-04-12 14:11 | WPDINFPN2 ---
Progress Note: A&P Assessment and Plan (1) Septicemia due to fungus: Code(s): A41.89 - Other specified sepsis; B49 - Unspecified mycosis Status: Acute Assessment and Plan: 1. C. glabrata BSI, stable. Clinical evaluation up to now as to source is negative. Due to her dementia, I cannot obtain further info about source. 2. Recent viral pneumonia due to SARS CoV2. Unvaccinated. 3. Dementia REC Micafungin #4 / 7 days, then clinical followup. Oral azoles have no efficacy. No further testing from my standpoint. Call if Qs. Subjective Date/time seen: 04/12/21 14:11 Interval history: non verbal. Exam Narrative: afebrile Const: Other: tachypneic and appears cachectic and chronically ill HENMT: Mouth: Yes dry mucous membranes Resp: Auscultation: clear to auscultation bilaterally Cardio: Rate: regular rate Rhythm: regular rhythm Heart sounds: no murmurs GI: Inspection: distended GI Palp: Yes Soft to palpation, No Tenderness to palpation present (GI) and No Guarding due to palpation present (GI) Skin: General skin exam: no rashes or lesions noted Objective Data Vital Signs Vital Signs: Vital Signs - 24 hr 04/11/21 14:47 04/11/21 14:48 04/11/21 18:00 Temperature 36.2 C L Pulse Rate 104 H 104 H 88 Respiratory Rate 24 H Blood Pressure 96/62 L Pulse Oximetry 98 04/11/21 18:15 04/11/21 19:15 04/11/21 20:00 Temperature 36.7 C 36.2 C L 36.3 C L Pulse Rate 89 88 84 Respiratory Rate 24 H 24 H 18 Blood Pressure 94/58 L 98/58 L 108/52 L Pulse Oximetry 98 97 97 04/11/21 20:15 04/11/21 20:25 04/11/21 20:42 Temperature 36.2 C L 36.4 C Pulse Rate 88 88 87 Respiratory Rate 14 12 Blood Pressure 98/84 L 98/78 L Pulse Oximetry 97 97 04/12/21 00:00 04/12/21 02:06 04/12/21 02:22 Temperature 36.6 C 36.6 C 36.4 C Pulse Rate 76 96 96 Respiratory Rate 18 22 H 20 Blood Pressure 102/56 L 78/32 L 76/46 L Pulse Oximetry 95 94 98 04/12/21 03:22 04/12/21 04:00 04/12/21 04:44 Temperature 36.5 C 36.3 C L 36.5 C Pulse Rate 82 82 83 Respiratory Rate 20 18 18 Blood Pressure 92/58 L 97/58 L 94/54 L Pulse Oximetry 99 99 98 04/12/21 08:00 04/12/21 08:15 04/12/21 09:39 Temperature 36.3 C L Pulse Rate 95 95 Respiratory Rate 16 Blood Pressure 100/56 L Pulse Oximetry 98 98 04/12/21 12:00 Temperature 36.3 C L Pulse Rate 90 Respiratory Rate 20 Blood Pressure 98/50 L Pulse Oximetry 92 Intake/Output Intake/Output: Intake & Output 04/09/21 04/10/21 04/11/21 04/12/21 23:59 23:59 23:59 23:59 Intake Total 3130 2290 2050 1596 Output Total 350 Balance 3130 2290 1700 1596 Meds/Results Medications: Active Medications Generic Name Dose Route Start Last Admin Trade Name Freq PRN Reason Stop Dose Admin Amiodarone HCl 200 mg 04/13/21 08:00 Amiodarone Hcl 200 Mg Tablet PO DAILY@0800 [facility] Donepezil HCl 5 mg 04/13/21 09:00 Donepezil Hcl 5 Mg Tablet PO DAILY [facility] Ferrous Sulfate 324 mg 04/12/21 08:00 Ferrous Sulfate 324 Mg Tablet PO DAILY@0800 [facility] Micafungin Sodium 100 mg/ 100 mls @ 100 mls/hr 04/09/21 14:00 04/12/21 13:38 Sodium Chloride IVPB 04/15/21 23:59 100 mls/hr DAILY@1400 TELLO Administration Sodium Chloride 1,000 mls @ 70 mls/hr 04/12/21 13:50 04/12/21 14:02 Normal Saline Iv IV CONT 70 mls/hr .[id number] TELLO Administration Miconazole Nitrate 1 applic 04/07/21 11:30 04/12/21 09:40 Miconazole 2% Antifungal Ointment 56 Gm TOPICAL 1 applic Q12HR TELLO Administration Pantoprazole Sodium 40 mg 04/12/21 09:00 04/12/21 09:41 Pantoprazole 40 Mg Tablet PO 40 mg Q12HR TELLO Administration Sodium Chloride 10 ml 04/10/21 14:00 04/12/21 13:40 Saline Lock Flush IV PUSH 10 ml Q8HR TELLO Administration Sodium Chloride 10 ml 04/10/21 13:11 Saline Lock Flush IV PUSH PRN PRN Flush Sodium Chloride 20 ml 04/10/21 13:11 04/12/21 13:20 Saline Lock Flush IV PUSH 20 ml PRN OK
--- NOTE | 2021-04-12 15:06 | PM.DDS ---
Discharge Summary Date and Time Date of : 04/12/21 Time of : 14:45 Probable Cause of Probable Cause of : Cardiac arrest Summary Hospital Course: Patient was recently hospitalized for shortness of breath and found to have COVID pneumonia. She was treated with remdesivir and dexamethasone. She was discharged on 04/06/2021 after a 10 day hospital stay on home oxygen. Patient returned a few hours later from what appeared to be that she was receiving less oxygen then required. Blood cultures however returned positive for Chitra glabrata and she was treated with micafungin. ID consult was obtained. It was felt that she had sepsis present on admission. Her O2 requirement actually improved during hospital course. She does have underlying kidney disease but her kidney function worsened. She also developed anemia felt to be related to a GI bleed requiring transfusion. She was too unstable for endoscopy. She was started on Protonix. GI was following along. Patient's mental status was poor initially but there was some improvement. She had episodes of hypotension treated with IV fluids. Nurse returned from lunch and on her evaluation patient was found unresponsive without pulse or blood pressure. She was a DNR. She was pronounced at 2:45 p.m.. I personally notified the son. Additional Data Family: contacted Was code activated?: No Advance directives: Yes Hospice patient?: No
--- NOTE | 2021-04-12 17:55 | PC.NURSE ---
Family here to see their mom. Patient belongings sent with sons. Also 2 hearing aids,denture, and glasses sent. Patient still has necklace and wedding band on.
== END 2021-04-12 14:45 | disposition expired | DRG 872 ==
LOC: ANHED 17:41 → ANH3MEDSUR 22:49
PROVIDERS: Internal Medicine; Internal Medicine Gastroenterology; Physician Assistant; Admitting Provider Internal Medicine; Emergency Provider General Practice; Visit Provider Physician Assistant
DX: A41.89 Other specified sepsis (principal); I13.0 Hypertensive heart and chronic kidney disease with heart failure and stage 1 through stage 4 chronic kidney disease, or unspecified chronic kidney disease; R64 Cachexia; Z68.1 Body mass index [BMI] 19.9 or less, adult; N17.9 Acute kidney failure, unspecified; K92.2 Gastrointestinal hemorrhage, unspecified; B37.89 Other sites of candidiasis; D62 Acute posthemorrhagic anemia; I46.8 Cardiac arrest due to other underlying condition; I50.9 Heart failure, unspecified; R62.7 Adult failure to thrive; I48.91 Unspecified atrial fibrillation; G30.9 Alzheimer's disease, unspecified; F02.80 Dementia in other diseases classified elsewhere, unspecified severity, without behavioral disturbance, psychotic disturbance, mood disturbance, and anxiety; N18.30 Chronic kidney disease, stage 3 unspecified; D50.9 Iron deficiency anemia, unspecified; K57.90 Diverticulosis of intestine, part unspecified, without perforation or abscess without bleeding; D72.829 Elevated white blood cell count, unspecified; R91.8 Other nonspecific abnormal finding of lung field; I95.9 Hypotension, unspecified; R13.10 Dysphagia, unspecified; R19.5 Other fecal abnormalities; Z98.42 Cataract extraction status, left eye; Z98.41 Cataract extraction status, right eye; Z90.49 Acquired absence of other specified parts of digestive tract; Z87.891 Personal history of nicotine dependence; Z86.16 Personal history of COVID-19; Z66 Do not resuscitate
CPT/HCPCS: 36415; 36430; 36569; 36600; 71045; 74019; 74176; 80048; 80053; 80069; 80202; 81001; 82271; 82274; 82375; 82805; 83050; 83605; 83986; 85014; 85018; 85025; 85027; 85610; 85730; 86850; 86900; 86901; 86920; 87040; 87086; 87106; 93005; 93970; 96365; 96375; 97162; 97165; 97530; 99285; A9270; C1751; C9113; G0378; J0692; J1650; J2248; J2543; J3370; J7030; J7040; J7050; J7060; J8540; P9016; P9047